=== PATIENT | female | born 1950 | race Caucasian/White ===

== ENCOUNTER 2022-03-07 07:49 | Inpatient (IN) | payer MEDICARE, BC ==
[2022-03-07] MEDS ORDERED: ONDANSETRON 4 MG/2 ML VIAL IVP STA (08:18)
[2022-03-07 08:48] LABS: Albumin 4.1 g/dL (3.5-5.0); Calcium 10.2 mg/dL (8.4-10.2); Potassium 4.3 mmol/L (3.5-5.1); Total Bilirubin 0.5 mg/dL (0.2-1.3)
[2022-03-07 08:52] LABS: INR 0.9 (<1.2); Partial Thromboplastin Time 24.6 sec (22.0-30.0); Prothrombin Time 10.1 sec (9.0-12.0)
[2022-03-07 09:01] LABS: Basophils # (A) 0.1 k/uL (0-0.2); Basophils % (A) 1 %; Eosinophils # (A) 0.8 k/uL (0-0.7); Eosinophils % (A) 11 %; HCT 38.1 % (34.0-46.0); Lymphocytes # (A) 1.5 k/uL (1.0-4.8); Lymphocytes % (A) 20 %; MCH 31.1 pg (25.0-35.0); MCHC 31.6 g/dL (31.0-37.0); MCV 98.4 fL (80.0-100.0); Mean Platelet Volume 7.8; Monocytes # (A) 0.4 k/uL (0-1.0); Monocytes % (A) 6 %; Neutrophils # (A) 4.6 k/uL (1.3-7.7); Neutrophils % (A) 62 %; Platelet Count 371 k/uL (150-450); RBC 3.87 m/uL (3.80-5.40); RDW 13.6 % (11.5-15.5); WBC 7.4 k/uL (3.8-10.6)
--- NOTE | 2022-03-07 09:32 | ED ---
GI Bleed HPI - General Chief complaint: GI Bleed Stated complaint: blood in stool Time Seen by Provider: 03/07/22 07:56 Source: patient, RN notes reviewed Mode of arrival: ambulatory Limitations: no limitations - History of Present Illness Initial comments: 71-year-old female presents emergency Department with chief complaint of rectal bleeding. She states she went to have low 2059 was old blood. Patient states she still has blood that is leaking. Patient that she has no hemorrhoids but denies any pain denies abdominal pain she did develop some nausea while in the emergency department. Patient states she takes aspirin denies blood thinners. Patient denies any fevers or chills no dysuria. - Related Data Home Medications Medication Instructions Recorded Confirmed ALPRAZolam [Xanax] 1 mg PO DAILY PRN 03/07/22 03/07/22 Acetaminophen [Tylenol Arthritis] 1,300 mg PO QAM 03/07/22 03/07/22 Ascorbic Acid [Vitamin C] 1,000 mg PO DAILY 03/07/22 03/07/22 Aspirin EC [Ecotrin Low Dose] 81 mg PO HS 03/07/22 03/07/22 Atorvastatin Calcium [Lipitor] 80 mg PO HS 03/07/22 03/07/22 Carvedilol [Coreg] 12.5 mg PO BID 03/07/22 03/07/22 Celecoxib [CeleBREX] 200 mg PO WE 03/07/22 03/07/22 Cholecalciferol (Vitamin D3) 75 mcg PO HS 03/07/22 03/07/22 [Vitamin D3 (3000 Iu)] Clopidogrel Bisulfate [Clopidogrel] 75 mg PO DAILY 03/07/22 03/07/22 Magnesium Oxide [Mag-Ox] 400 mg PO DAILY 03/07/22 03/07/22 Sertraline HCl [Zoloft] 100 mg PO DAILY 03/07/22 03/07/22 Triamterene/Hydrochlorothiazid 1 tab PO DAILY 03/07/22 03/07/22 [Triamterene-Hctz 37.5-25 mg Tb] Vitamin E (Dl,Tocopheryl Acet) 400 unit PO DAILY 03/07/22 03/07/22 [Vitamin E (400 Iu = 180 mg)] Allergies Allergy/AdvReac Type Severity Reaction Status Date / Time No Known Allergies Allergy Verified 03/07/22 09:16 Review of Systems ROS Statement: Those systems with pertinent positive or pertinent negative responses have been documented in the HPI. ROS Other: All systems not noted in ROS Statement are negative. Past Medical History Past Medical History: Hypertension, Renal Disease Additional Past Medical History / Comment(s): kidney stones. History of Any Multi-Drug Resistant Organisms: None Reported Past Surgical History: Cholecystectomy Past Psychological History: No Psychological Hx Reported Smoking Status: Never smoker Past Alcohol Use History: Occasional Past Drug Use History: None Reported General Exam Limitations: no limitations General appearance: alert, in no apparent distress Head exam: Present: atraumatic, normocephalic, normal inspection Eye exam: Present: normal appearance, PERRL, EOMI. Absent: scleral icterus, conjunctival injection, periorbital swelling ENT exam: Present: normal exam, mucous membranes moist Neck exam: Present: normal inspection, full ROM. Absent: tenderness, meningismus, lymphadenopathy Respiratory exam: Present: normal lung sounds bilaterally. Absent: respiratory distress, wheezes, rales, rhonchi, stridor Cardiovascular Exam: Present: regular rate, normal rhythm, normal heart sounds. Absent: systolic murmur, diastolic murmur, rubs, gallop, clicks GI/Abdominal exam: Present: soft, normal bowel sounds. Absent: distended, tenderness, guarding, rebound, rigid Rectal exam: Present: other (There is noted blood in, no active bleeding from hemorrhoid, no lesions.) Course Vital Signs 03/07/22 03/07/22 07:50 08:26 Temperature 98.1 F Pulse Rate 92 Respiratory 18 Rate Blood Pressure 122/79 131/77 O2 Sat by Pulse 98 Oximetry Medical Decision Making - Medical Decision Making Patient does have mild bleeding noted did have significant bleeding home. Patient's hemoglobin is stable. Patient will have repeat H&H. Patient will be admitted for GI evaluation. - Lab Data Result diagrams: 03/07/22 08:23 03/07/22 08:23 Lab Results 03/07/22 03/07/22 03/07/22 Range/Units 08:15 08:23 08:23 WBC 7.4 (3.8-10.6) k/uL RBC 3.87 (3.80-5.40) m/uL Hgb 12.0 (11.4-16.0) gm/dL Hct 38.1 (34.0-46.0) % MCV 98.4 (80.0-100.0) fL MCH 31.1 (25.0-35.0) pg MCHC 31.6 (31.0-37.0) g/dL RDW 13.6 (11.5-15.5) % Plt Count 371 (150-450) k/uL MPV 7.8 Neutrophils % 62 % Lymphocytes % 20 % Monocytes % 6 % Eosinophils % 11 % Basophils % 1 % Neutrophils # 4.6 (1.3-7.7) k/uL Lymphocytes # 1.5 (1.0-4.8) k/uL Monocytes # 0.4 (0-1.0) k/uL Eosinophils # 0.8 H (0-0.7) k/uL Basophils # 0.1 (0-0.2) k/uL PT 10.1 (9.0-12.0) sec INR 0.9 (<1.2) APTT 24.6 (22.0-30.0) sec Sodium (137-145) mmol/L Potassium (3.5-5.1) mmol/L Chloride (98-107) mmol/L Carbon Dioxide (22-30) mmol/L Anion Gap mmol/L BUN (7-17) mg/dL Creatinine (0.52-1.04) mg/dL Est GFR (CKD-EPI)AfAm (>60 ml/min/1.73 sqM) Est GFR (CKD-EPI)NonAf (>60 ml/min/1.73 sqM) Glucose (74-99) mg/dL Plasma Lactic Acid Dung (0.7-2.0) mmol/L Calcium (8.4-10.2) mg/dL Total Bilirubin (0.2-1.3) mg/dL AST (14-36) U/L ALT (4-34) U/L Alkaline Phosphatase (38-126) U/L Troponin I (0.000-0.034) ng/mL Total Protein (6.3-8.2) g/dL Albumin (3.5-5.0) g/dL Blood Type O Positive Blood Type Confirm Blood Type Recheck No Previous Record Bld Type Recheck Status CABO Indicated Antibody Screen NEGATIVE Spec Expiration Date 03/10/2022231403/07/22 03/07/22 03/07/22 Range/Units 08:23 08:23 08:23 WBC (3.8-10.6) k/uL RBC (3.80-5.40) m/uL Hgb (11.4-16.0) gm/dL Hct (34.0-46.0) % MCV (80.0-100.0) fL MCH (25.0-35.0) pg MCHC (31.0-37.0) g/dL RDW (11.5-15.5) % Plt Count (150-450) k/uL MPV Neutrophils % % Lymphocytes % % Monocytes % % Eosinophils % % Basophils % % Neutrophils # (1.3-7.7) k/uL Lymphocytes # (1.0-4.8) k/uL Monocytes # (0-1.0) k/uL Eosinophils # (0-0.7) k/uL Basophils # (0-0.2) k/uL PT (9.0-12.0) sec INR (<1.2) APTT (22.0-30.0) sec Sodium 140 (137-145) mmol/L Potassium 4.3 (3.5-5.1) mmol/L Chloride 104 (98-107) mmol/L Carbon Dioxide 26 (22-30) mmol/L Anion Gap 10 mmol/L BUN 43 H (7-17) mg/dL Creatinine 1.43 H (0.52-1.04) mg/dL Est GFR (CKD-EPI)AfAm 42 (>60 ml/min/1.73 sqM) Est GFR (CKD-EPI)NonAf 36 (>60 ml/min/1.73 sqM) Glucose 132 H (74-99) mg/dL Plasma Lactic Acid Dung 1.5 (0.7-2.0) mmol/L Calcium 10.2 (8.4-10.2) mg/dL Total Bilirubin 0.5 (0.2-1.3) mg/dL AST 20 (14-36) U/L ALT 18 (4-34) U/L Alkaline Phosphatase 97 (38-126) U/L Troponin I <0.012 (0.000-0.034) ng/mL Total Protein 7.0 (6.3-8.2) g/dL Albumin 4.1 (3.5-5.0) g/dL Blood Type Blood Type Confirm Blood Type Recheck Bld Type Recheck Status Antibody Screen Spec Expiration Date 03/07/22 Range/Units 08:23 WBC (3.8-10.6) k/uL RBC (3.80-5.40) m/uL Hgb (11.4-16.0) gm/dL Hct (34.0-46.0) % MCV (80.0-100.0) fL MCH (25.0-35.0) pg MCHC (31.0-37.0) g/dL RDW (11.5-15.5) % Plt Count (150-450) k/uL MPV Neutrophils % % Lymphocytes % % Monocytes % % Eosinophils % % Basophils % % Neutrophils # (1.3-7.7) k/uL Lymphocytes # (1.0-4.8) k/uL Monocytes # (0-1.0) k/uL Eosinophils # (0-0.7) k/uL Basophils # (0-0.2) k/uL PT (9.0-12.0) sec INR (<1.2) APTT (22.0-30.0) sec Sodium (137-145) mmol/L Potassium (3.5-5.1) mmol/L Chloride (98-107) mmol/L Carbon Dioxide (22-30) mmol/L Anion Gap mmol/L BUN (7-17) mg/dL Creatinine (0.52-1.04) mg/dL Est GFR (CKD-EPI)AfAm (>60 ml/min/1.73 sqM) Est GFR (CKD-EPI)NonAf (>60 ml/min/1.73 sqM) Glucose (74-99) mg/dL Plasma Lactic Acid Dung (0.7-2.0) mmol/L Calcium (8.4-10.2) mg/dL Total Bilirubin (0.2-1.3) mg/dL AST (14-36) U/L ALT (4-34) U/L Alkaline Phosphatase (38-126) U/L Troponin I (0.000-0.034) ng/mL Total Protein (6.3-8.2) g/dL Albumin (3.5-5.0) g/dL Blood Type Blood Type Confirm O Positive Blood Type Recheck Bld Type Recheck Status Antibody Screen Spec Expiration Date Disposition Clinical Impression: Hematochezia, GI bleed Disposition: ADMITTED IP TO THIS [facility] Condition: Fair Referrals: Sonny Daley MD [Primary Care Provider] - 1-2 days Time of Disposition: 09:32
[2022-03-07] MEDS ORDERED: NALOXONE 0.4 MG/ML 1 ML VIAL IV PRN (09:52)
[2022-03-07] MEDS ORDERED: ACETAMINOPHEN TAB 325 MG TAB PO PRN (11:24)
[2022-03-07] MEDS ORDERED: ALPRAZolam 1 MG TAB PO PRN (11:26)
--- NOTE | 2022-03-07 11:31 | P.HPIM ---
History of Present Illness H&P Date: 03/07/22 Patient is a 71-year-old female with chronic kidney disease age [address] Crowley, hypertension, and dyslipidemia who presented with bright red blood per rectum. In the ER she underwent an extensive evaluation. Her initial vital signs were within normal limits, initial laboratory analysis was consistent with her known chronic kidney disease. Per ER examination she was noted to have bright red blood per rectum and external hemorrhoids that were not bleeding. Patient was placed in observation. Patient seen and examined at bedside. She reports that she got up this morning and when to go to the bathroom to urinate. She noted bright red blood on wiping and in the toilet. She has continued to have significant oozing of blood since that time. She denies any nausea, vomiting, abdominal pain. She has not ate anything unusual. She denies any fevers or chills. She has had no sick contacts. She denies any history of GI bleed in the past. She has seen Dr. Bean out in [place]. She reports that she is due for a colonoscopy in March 2022. She amalia es any history of colon cancer or colon polyps. She is unsure of her indication for Plavix but believes it is due to prevent heart attack and stroke-she denies a history of prior TIA/strokes asked myocardial infarction/peripheral arterial disease/carotid disease. She also has been taking Celebrex once weekly and aspirin 81 mg twice daily. I have asked her to check with her PCP as to her indication for Plavix. Pertinent positives and negatives as discussed in HPI, a complete review of systems was performed and all other systems are negative. Vital signs reviewed General: non toxic, no distress, appears at stated age Derm: warm, dry Head: atraumatic, normocephalic, symmetric Eyes: EOMI, no lid lag, anicteric sclera, pupils equal round reactive to light ENT: Nose and ears atraumatic, no thrush, no pharyngeal erythema Neck: No thyromegaly, no cervical lymphadenopathy, trachea midline, supple Mouth: no lip lesion, mucus membranes moist Cardiovascular: S1S2 reg, no murmur, positive posterior tibial pulse bilateral, no edema, capillary refill less than 2 seconds Lungs: clear to ascultation bilateral, no ronchi, no rales, no wheeze, no accessory muscle use Abdominal: soft, nontender to palpation, no guarding, no appreciable organomegaly, normal bowel sounds Ext: no gross muscle atrophy, muscle strength muscle strength 5 out of 5 in all 4 extremities, no contractures Neuro: CN II-XII grossly intact, light touch intact all 4 extremities, finger to nose within normal limits, Psych: Alert, oriented, appropriate affect Assessment/Plan: Bright red blood per rectum consistent with lower GI bleed -GI consultation, discussed with KRISTIN Mathews Likely scope in AM -Serial hemoglobin -IV fluids -We'll start Protonix, but doubt upper etiology Hypertension -Hold triamterene/hydrochlorothiazide due to blood loss -Continue with Coreg -Follow blood pressures Chronic kidney disease age 1 -Baseline GFR is 35 and today's GFR is 36 -Avoid nephrotoxic agents -Monitor kidney function closely Dyslipidemia -Statin The patient is admitted with an anticipated less than 2 midnight stay for evaluation of GI bleed DVT prophylaxis: SCDs Discussed with: patient, ED provider, ford Mathews Anticipated discharge date: in 1-[address]: home A total of 65 minutes was spent on the care of this complex patient more than 50% of the time was spent in counseling and care coordination. Past Medical History Past Medical History: Hypertension, Renal Disease Additional Past Medical History / Comment(s): kidney stones. History of Any Multi-Drug Resistant Organisms: None Reported Past Surgical History: Cholecystectomy Past Psychological History: No Psychological Hx Reported Smoking Status: Never smoker Past Alcohol Use History: Occasional Past Drug Use History: None Reported Medications and Allergies Home Medications Medication Instructions Recorded Confirmed Type ALPRAZolam [Xanax] 1 mg PO DAILY PRN 03/07/22 03/07/22 History Acetaminophen [Tylenol Arthritis] 1,300 mg PO QAM 03/07/22 03/07/22 History Ascorbic Acid [Vitamin C] 1,000 mg PO DAILY 03/07/22 03/07/22 History Aspirin EC [Ecotrin Low Dose] 81 mg PO HS 03/07/22 03/07/22 History Atorvastatin Calcium [Lipitor] 80 mg PO HS 03/07/22 03/07/22 History Carvedilol [Coreg] 12.5 mg PO BID 03/07/22 03/07/22 History Celecoxib [CeleBREX] 200 mg PO WE 03/07/22 03/07/22 History Cholecalciferol (Vitamin D3) 75 mcg PO HS 03/07/22 03/07/22 History [Vitamin D3 (3000 Iu)] Clopidogrel Bisulfate [Clopidogrel] 75 mg PO DAILY 03/07/22 03/07/22 History Magnesium Oxide [Mag-Ox] 400 mg PO DAILY 03/07/22 03/07/22 History Sertraline HCl [Zoloft] 100 mg PO DAILY 03/07/22 03/07/22 History Triamterene/Hydrochlorothiazid 1 tab PO DAILY 03/07/22 03/07/22 History [Triamterene-Hctz 37.5-25 mg Tb] Vitamin E (Dl,Tocopheryl Acet) 400 unit PO DAILY 03/07/22 03/07/22 History [Vitamin E (400 Iu = 180 mg)] Allergies Allergy/AdvReac Type Severity Reaction Status Date / Time No Known Allergies Allergy Verified 03/07/22 09:16 Physical Exam Osteopathic Statement: *. No significant issues noted on an osteopathic structural exam other than those noted in the History and Physical/Consult. Vitals: Vital Signs Temp Pulse Resp BP Pulse Ox 03/07/22 08:26 131/77 03/07/22 07:50 98.1 F 92 18 122/79 98 Intake and Output 03/06/22 03/07/22 03/07/22 22:59 06:59 14:59 Other: Weight 82.554 kg Results CBC & Chem 7: 03/07/22 08:23 03/07/22 08:23 Labs: Abnormal Lab Results - Last 24 Hours (Table) 03/07/22 03/07/22 Range/Units 08:23 08:23 Eosinophils # 0.8 H (0-0.7) k/uL BUN 43 H (7-17) mg/dL Creatinine 1.43 H (0.52-1.04) mg/dL Glucose 132 H (74-99) mg/dL
[2022-03-07] MEDS: PANTOPRAZOLE 40 MG/10 ML VIAL IVP SCH ×2 (12:28→21:09)
[2022-03-07] MEDS: SODIUM CHLORIDE 0.9% 1,000 ML IV SCH ×2 (12:28→19:10)
[2022-03-07 12:38] LABS: HCT 33.8 % (34.0-46.0); HGB 10.7 gm/dL (11.4-16.0); Hypochromasia Slight; MCH 31.7 pg (25.0-35.0); MCHC 31.5 g/dL (31.0-37.0); MCV 100.7 fL (80.0-100.0); Macrocytosis Slight; Mean Platelet Volume 7.6; Platelet Count 476 k/uL (150-450); RBC 3.36 m/uL (3.80-5.40); RDW 14.1 % (11.5-15.5); WBC 10.7 k/uL (3.8-10.6)
--- NOTE | 2022-03-07 13:58 | P.CONS ---
History of Present Illness - Reason for Consult Consult date: 03/07/22 Hematochezia Requesting physician: Shanelle Daley - Chief Complaint Rectal bleeding - History of Present Illness This is a pleasant 71-year-old female who presented to the emergency department this morning with complaints of bright red blood per rectum. States she got up this morning and went to the bathroom and noted that she had bright red blood in the toilet. She continued to have dripping and blood per rectum. She denies any pushing or constipation. No abdominal pain or cramping associated with the bleeding. She does state that she has had looser stools over the last several days. She is unsure when her last colonoscopy was but states that she is schedu led April [address] Villarreal had her previous colonoscopies were done in [place]. She denies any anticoagulation but is on Plavix, baby aspirin twice a day and takes Celebrex once a week. She has no previous history of peptic ulcer disease. Hemoglobin was stable on admission of 12.0. While in the emergency department she has had further bleeding and clots from the rectum. She has a past medical history including hypertension, dyslipidemia, and chronic kidney disease. Review of Systems REVIEW OF SYSTEMS: CARDIOPULMONARY: No chest pain or shortness of breath. Gastrointestinal: No abdominal pain or cramping. No nausea or vomiting. No hematemesis, coffee-ground emesis. Rectal bleeding, bright red blood, dark With clots. GENITOURINARY: No dysuria or hematuria. MUSCULOSKELETAL: Reports normal range of motion., Joint pain. SKIN: No rashes. No jaundice. ENDOCRINE: No chills, fevers. No excessive weight gain or loss. No polydipsia or polyuria. PSYCHIATRIC: Unremarkable. NEUROLOGY: No change in mental status. Denies dizziness, headache. ENT: Vision unremarkable. CONSTITUTIONAL: No recent weight loss. No fever, chills, night sweats. Past Medical History Past Medical History: Hypertension, Renal Disease Additional Past Medical History / Comment(s): kidney stones. History of Any Multi-Drug Resistant Organisms: None Reported Past Surgical History: Cholecystectomy Past Psychological History: No Psychological Hx Reported Smoking Status: Never smoker Past Alcohol Use History: Occasional Past Drug Use History: None Reported Medications and Allergies Home Medications Medication Instructions Recorded Confirmed Type ALPRAZolam [Xanax] 1 mg PO DAILY PRN 03/07/22 03/07/22 History Acetaminophen [Tylenol Arthritis] 1,300 mg PO QAM 03/07/22 03/07/22 History Ascorbic Acid [Vitamin C] 1,000 mg PO DAILY 03/07/22 03/07/22 History Aspirin EC [Ecotrin Low Dose] 81 mg PO HS 03/07/22 03/07/22 History Atorvastatin Calcium [Lipitor] 80 mg PO HS 03/07/22 03/07/22 History Carvedilol [Coreg] 12.5 mg PO BID 03/07/22 03/07/22 History Celecoxib [CeleBREX] 200 mg PO WE 03/07/22 03/07/22 History Cholecalciferol (Vitamin D3) 75 mcg PO HS 03/07/22 03/07/22 History [Vitamin D3 (3000 Iu)] Clopidogrel Bisulfate [Clopidogrel] 75 mg PO DAILY 03/07/22 03/07/22 History Magnesium Oxide [Mag-Ox] 400 mg PO DAILY 03/07/22 03/07/22 History Sertraline HCl [Zoloft] 100 mg PO DAILY 03/07/22 03/07/22 History Triamterene/Hydrochlorothiazid 1 tab PO DAILY 03/07/22 03/07/22 History [Triamterene-Hctz 37.5-25 mg Tb] Vitamin E (Dl,Tocopheryl Acet) 400 unit PO DAILY 03/07/22 03/07/22 History [Vitamin E (400 Iu = 180 mg)] Allergies Allergy/AdvReac Type Severity Reaction Status Date / Time No Known Allergies Allergy Verified 03/07/22 09:16 Physical Exam Vitals: Vital Signs Temp Pulse Resp BP Pulse Ox 03/07/22 08:26 131/77 03/07/22 07:50 98.1 F 92 18 122/79 98 Intake and Output 03/06/22 03/07/22 03/07/22 22:59 06:59 14:59 Other: Weight 82.554 kg General appearance: The patient is alert, oriented, appears in no acute distress. HET: Head is normocephalic and atraumatic. Conjunctiva pink. Sclera anicteric. Neck: Supple without lymphadenopathy. Trachea midline. Heart: S1 S2. Regular rate and rhythm. Lungs: Clear to auscultation. Abdomen: Soft, nontender, nondistended with bowel sounds. No guarding or rigidity. Skin: No rashes. No jaundice. Extremities: Normal skin color and turgor. No pedal edema. Neurological: No focal deficits. Alert and oriented x3. Results CBC & Chem 7: 03/07/22 11:56 03/07/22 08:23 Labs: Abnormal Lab Results - Last 24 Hours (Table) 03/07/22 03/07/22 Range/Units 08:23 08:23 Eosinophils # 0.8 H (0-0.7) k/uL BUN 43 H (7-17) mg/dL Creatinine 1.43 H (0.52-1.04) mg/dL Glucose 132 H (74-99) mg/dL Assessment and Plan (1) GI bleed Narrative/Plan: 71-year-old female with a past medical history of hypertension hyperlipidemia and chronic kidney disease presented to the emergency department this morning with bright red blood per rectum. As she remained in the emergency department she continued to have bleeding per rectum, dark maroon color with clots. No previous history of GI bleed. No history of peptic ulcer disease. She does take baby aspirin twice a day, Celebrex weekly as well as Plavix. Unsure of la st colonoscopy however states she is due this 04/05/[address] Ya. Possible etiologies include diverticular bleed, colitis, peptic ulcer disease AVM, or other possible etiologies. Will proceed with EGD and colonoscopy. Current Visit: Yes Status: Acute Code(s): K92.2 - GASTROINTESTINAL HEMORRHAGE, UNSPECIFIED SNOMED Code(s): 73794739 (2) Hematochezia Current Visit: Yes Status: Acute Code(s): K92.1 - MELENA SNOMED Code(s): 458636869 Plan: 1. Continue symptomatic supportive care 2. A clear liquid diet, ambulating after midnight 3. Bowel prep this afternoon 4. Serial CBCs, repeat CBC daily transfuse for hemoglobin less than 7 5. Hold Plavix and aspirin 6. Protonix 40 mg twice a day 7. Will proceed with EGD and colonoscopy tomorrow. Procedure discussed with patient including risks and benefits. Patient willing to proceed. Thank you for this consultation, we'll continue to follow. Dr. Cee Ya I agree with the dictator's note, documented as a scribe by Erin Bojorquez
[2022-03-07] MEDS ORDERED: PEG 3350-NA SULF,BICARB,CL/KCL 4,000 ML BOTTLE PO ONE (16:00)
[2022-03-07] MEDS ORDERED: SODIUM CHLORIDE 0.9% 1,000 ML IV ONE (16:18)
[2022-03-07 17:11] LABS: ALT 15 U/L (4-34); AST 17 U/L (14-36); African American GFR (CKD) 44 (>60 ml/min/1.73 sqM); Albumin 3.1 g/dL (3.5-5.0); Albumin/Globulin Ratio 1.4; Alkaline Phosphatase 67 U/L (38-126); Anion Gap 6 mmol/L; Blood Urea Nitrogen 47 mg/dL (7-17); Calcium 8.4 mg/dL (8.4-10.2); Carbon Dioxide 24 mmol/L (22-30); Chloride 108 mmol/L (98-107); Globulin 2.2 g/dL; Glucose 169 mg/dL (74-99); Non-African American GFR(CKD) 38 (>60 ml/min/1.73 sqM); Potassium 4.4 mmol/L (3.5-5.1); Sodium 138 mmol/L (137-145); Total Bilirubin 0.3 mg/dL (0.2-1.3); Total Protein 5.3 g/dL (6.3-8.2)
[2022-03-07 17:15] LABS: HCT 26.5 % (34.0-46.0); Hypochromasia Slight; MCH 32.2 pg (25.0-35.0); MCHC 32.1 g/dL (31.0-37.0); MCV 100.1 fL (80.0-100.0); Macrocytosis Slight; Mean Platelet Volume 7.8; Platelet Count 373 k/uL (150-450); RBC 2.65 m/uL (3.80-5.40); RDW 14.2 % (11.5-15.5); WBC 7.9 k/uL (3.8-10.6)
[2022-03-07 17:30] LABS: HGB 8.5 gm/dL (11.4-16.0)
--- NOTE | 2022-03-07 17:39 | P.CNPUL ---
History of Present Illness Consult date: 03/07/22 Requesting physician: Shanelle Daley Reason for consult: other Chief complaint: Bright red blood per rectum History of present illness: This is a 71-year-old female patient that came in to the emergency department on [place] 03/07/2022 with complaint of rectal bleeding that started this morning. Rose ent went to the bathroom and had a very large amount of bright red blood per rectum. Patient denied any abdominal pain, no hematemesis. She did have some nausea in the emergency department, patient has a history of hypertension, chronic kidney disease stage III, dyslipidemia, osteoarthritis. Patient takes 81 mg aspirin, Plavix, and Celebrex 200 mg every Friday on a regular basis. Denies having any previous GI bleeding. Had a colonoscopy several years ago, according to the patient was unremarkable. Admission blood work showed hemoglobin of 12.0, platelet count was 371, INR was 0.9, PT was 10.1, PTT was 24.6, electrolytes are within normal limits, BUN was 43 creatinine is 1.43. Troponin was less than 0.012, LFTs were within normal limits, lactic acid was 1.5. She was stable, patient was started on PPI, GI service has been consulted for evaluation. Patient was initially admitted to the general medical floor, however this afternoon when she got up to go to the bathroom she felt quite lightheaded, she had an urge to have a bowel movement, and she had an episode of lower GI hemorrhage, and patient was passing large amount of bright red blood per rectum. Patient became quite symptomatic, lightheaded, she was started on IV fluid bolus of 1 L, 1 unit of packed red blood cells has been ordered, repeat CBC, and patient was transferred to the intensive care unit for closer monitor ing Review of Systems All systems: negative Constitutional: Denies chills, Denies fever Eyes: denies blurred vision, denies pain Ears, nose, mouth and throat: Denies headache, Denies sore throat Cardiovascular: Denies chest pain, Denies shortness of breath Respiratory: Denies cough Gastrointestinal: Reports hematochezia, Denies abdominal pain, Denies diarrhea, Denies nausea, Denies vomiting Genitourinary: Denies dysuria, Denies hematuria Musculoskeletal: Denies myalgias Integumentary: Denies pruritus, Denies rash Neurological: Denies numbness, Denies weakness Psychiatric: Denies anxiety, Denies depression Endocrine: Denies fatigue, Denies weight change Past Medical History Past Medical History: Hypertension, Renal Disease Additional Past Medical History / Comment(s): kidney stones. History of Any Multi-Drug Resistant Organisms: None Reported Past Surgical History: Cholecystectomy Past Psychological History: No Psychological Hx Reported Smoking Status: Never smoker Past Alcohol Use History: Occasional Past Drug Use History: None Reported Medications and Allergies Home Medications Medication Instructions Recorded Confirmed Type ALPRAZolam [Xanax] 1 mg PO DAILY PRN 03/07/22 03/07/22 History Acetaminophen [Tylenol Arthritis] 1,300 mg PO QAM 03/07/22 03/07/22 History Ascorbic Acid [Vitamin C] 1,000 mg PO DAILY 03/07/22 03/07/22 History Aspirin EC [Ecotrin Low Dose] 81 mg PO HS 03/07/22 03/07/22 History Atorvastatin Calcium [Lipitor] 80 mg PO HS 03/07/22 03/07/22 History Carvedilol [Coreg] 12.5 mg PO BID 03/07/22 03/07/22 History Celecoxib [CeleBREX] 200 mg PO WE 03/07/22 03/07/22 History Cholecalciferol (Vitamin D3) 75 mcg PO HS 03/07/22 03/07/22 History [Vitamin D3 (3000 Iu)] Clopidogrel Bisulfate [Clopidogrel] 75 mg PO DAILY 03/07/22 03/07/22 History Magnesium Oxide [Mag-Ox] 400 mg PO DAILY 03/07/22 03/07/22 History Sertraline HCl [Zoloft] 100 mg PO DAILY 03/07/22 03/07/22 History Triamterene/Hydrochlorothiazid 1 tab PO DAILY 03/07/22 03/07/22 History [Triamterene-Hctz 37.5-25 mg Tb] Vitamin E (Dl,Tocopheryl Acet) 400 unit PO DAILY 03/07/22 03/07/22 History [Vitamin E (400 Iu = 180 mg)] Allergies Allergy/AdvReac Type Severity Reaction Status Date / Time No Known Allergies Allergy Verified 03/07/22 09:16 Physical Exam Vitals: Vital Signs Temp Pulse Resp BP Pulse Ox 03/07/22 15:46 91 18 112/84 96 03/07/22 12:00 91 18 125/58 95 03/07/22 08:26 131/77 03/07/22 07:50 98.1 F 92 18 122/79 98 Intake and Output 03/07/22 03/07/22 03/07/22 06:59 14:59 22:59 Other: Weight 82.554 kg GENERAL EXAM: Alert, very pleasant, 71-year-old white female, resting in bed, comfortable in no apparent distress. HEAD: Normocephalic/atraumatic. EYES: Normal reaction of pupils, equal size. Conjunctiva pink, sclera white. NOSE: Clear with pink turbinates. THROAT: No erythema or exudates. NECK: No masses, no JVD, no thyroid enlargement, no adenopathy. CHEST: No chest wall deformity. Symmetrical expansion. LUNGS: Equal air entry with no crackles, wheeze, rhonchi or dullness. CVS: Regular rate and rhythm, normal S1 and S2, no gallops, no murmurs, no rubs ABDOMEN: Soft, nontender. No hepatosplenomegaly, normal bowel sounds, no guarding or rigidity. EXTREMITIES: No clubbing, no edema, no cyanosis, 2+ pulses and upper and lower extremities. MUSCULOSKELETAL: Muscle strength and tone normal. SPINE: No scoliosis or deformity SKIN: No rashes CENTRAL NERVOUS SYSTEM: Alert and oriented -3. No focal deficits, tone is normal in all 4 extremities. PSYCHIATRIC: Alert and oriented -3. Appropriate affect. Intact judgment and insight. Results - Laboratory Findings CBC and BMP: 03/08/22 02:14 03/08/22 02:14 PT/INR, D-dimer PT 10.1 sec (9.0-12.0) 03/07/22 08:23 INR 0.9 (<1.2) 03/07/22 08:23 Abnormal lab findings: Abnormal Labs 03/07/22 03/07/22 03/07/22 08:15 08:23 08:23 WBC RBC Hgb Hct MCV Plt Count Eosinophils # 0.8 H BUN 43 H Creatinine 1.43 H Glucose 132 H Crossmatch See Detail 03/07/22 11:56 WBC 10.7 H RBC 3.36 L Hgb 10.7 L Hct 33.8 L MCV 100.7 H Plt Count 476 H Eosinophils # BUN Creatinine Glucose Crossmatch Assessment and Plan Plan: Assessment: #1. Acute GI blood loss anemia, likely related to lower GI bleeding secondary to possibility of diverticular bleeding, current hemoglobin is 10.7, repeat hemoglobin is pending after an episode of acute lower GI hemorrhage. Will receive 1 unit of packed red blood cells #2. Hypertension #3. Dyslipidemia #4. History of chronic kidney disease stage III #5. History of kidney stones #6. Osteoarthritis Plan: Agree with IV fluid bolus Repeat hemoglobin is pending We'll transfuse with 1 unit of packed red blood cells Continue monitoring in the intensive care unit Serial H&H's Aspirin, Plavix and Celebrex are on hold Continue PPI therapy GI service recommendations Patient is scheduled for EGD colonoscopy tomorrow Keep nothing by mouth I have personally seen and examined the patient, performed the documentation and the assessment and plan as written. Number of minutes spent on the visit: [15] Time with Patient: Greater than 30
[2022-03-07 17:45] LABS: Prothrombin Time 10.8 sec (9.0-12.0)
--- NOTE | 2022-03-07 17:46 | P.EN ---
A- team: Indication: GI bleed Arrived on Scene to find: Patient appeared pale and diaphoretic. having bright red blood per rectum. Patient seen and examined at bedside. She reports that when she was on the commode she felt light headed, diaphoretic, had abdominal cramping, and some nausea. Now feeling better. Vital signs reviewed General: ill appearing, moderate distress, appears at stated age Derm: warm, diaphoretic Head: atraumatic, normocephalic, symmetric Eyes: EOMI, no lid lag, anicteric sclera Mouth: no lip lesion, mucus membranes moist Cardiovascular: S1S2 reg, no murmur, positive posterior tibial pulse bilateral, Lungs: CTA bilateral, no rhonchi, no rales , no accessory muscle use Abdominal: soft, nontender to palpation, no guarding, no appreciable organomegaly Ext: no gross muscle atrophy, no edema, no contractures Neuro: CN II-XI grossly intact, no focal neuro deficits Psych: Alert, oriented, appropriate affect Assessment: Acute blood loss anemia Lower GI bleed Presyncope Plan: 1L bolus 1 unit pRBC stat CBC/pt/ptt Disposition: transfer to ICU Notified: Dr. Avril Ya A Total of 32 minutes of critical care time was spent on the complex care of this patient.
[2022-03-07 17:48] LABS: Partial Thromboplastin Time 20.1 sec (22.0-30.0)
[2022-03-07] MEDS: carvediloL 12.5 MG TAB PO SCH (19:12)
[2022-03-07] MEDS ORDERED: MELATONIN 3 MG TABLET PO PRN (21:00)
[2022-03-07 21:59] LABS: HCT 28.9 % (34.0-46.0); HGB 9.3 gm/dL (11.4-16.0); Hypochromasia Slight; MCH 31.8 pg (25.0-35.0); MCHC 32.1 g/dL (31.0-37.0); Platelet Count 285 k/uL (150-450); RBC 2.92 m/uL (3.80-5.40); RDW 13.8 % (11.5-15.5); WBC 7.7 k/uL (3.8-10.6)
[2022-03-08] MEDS: SODIUM CHLORIDE 0.9% 1,000 ML IV SCH ×3 (00:35→20:37)
--- NOTE | 2022-03-08 02:23 | P.PN ---
Progress Note - Text Progress Note Date: 03/08/[address] Ya with regards to patient's ongoing GI bleeding. The patient is scheduled to undergo tagged RBC scan in 30-45 minutes. She recommended transferring patient to [facility] due to the on-going bleeding. Will contact [facility] Transfer center.
[2022-03-08 03:02] LABS: Calcium 8.1 mg/dL (8.4-10.2); Potassium 4.2 mmol/L (3.5-5.1)
[2022-03-08 03:03] LABS: HCT 29.9 % (34.0-46.0); HGB 9.4 gm/dL (11.4-16.0); Hypochromasia Slight; MCH 30.8 pg (25.0-35.0); MCHC 31.3 g/dL (31.0-37.0); MCV 98.4 fL (80.0-100.0); Mean Platelet Volume 7.7; Platelet Count 283 k/uL (150-450); RBC 3.03 m/uL (3.80-5.40); RDW 14.2 % (11.5-15.5); WBC 9.5 k/uL (3.8-10.6)
[2022-03-08] MEDS: carvediloL 12.5 MG TAB PO SCH ×2 (06:29→17:34)
[2022-03-08] MEDS: SERTRALINE 100 MG TAB PO SCH (08:41)
--- NOTE | 2022-03-08 08:52 | NM ---
EXAMINATION TYPE: NM GI bleeding DATE OF EXAM: 03/08/2022 HISTORY: Acute GI bleed COMPARISON: NONE Following administration of 3 ml PYP 21.5 mCi Tc 99m Sodium Pertechnate. Immediate images post inject ion. FINDINGS: Normal tracer activity is seen in the blood pool of the abdominal aorta, common iliac arteries, femor al arteries, liver, and spleen on all of the interval images. Later images show accumulation of trace r in the urinary bladder, which is consistent with excreted tracer. At approximately 30 to 35 minutes it begins to be some accumulation of radiotracer in the left upper quadrant. This continues to fill and spill in the expected region of the descending colon. Distal tra nsverse colon GI bleed should be suspected. IMPRESSION: Radiotracer in the left upper quadrant with filling of what appears to be the descending colon on seq uential images. The exam is suggestive for distal transverse colon acute bleed.
--- NOTE | 2022-03-08 09:31 | P.GSCN ---
History of Present Illness Consult date: 03/08/22 History of present illness: CHIEF COMPLAINT: GI bleed HISTORY OF PRESENT ILLNESS: This is a 71-year-old female who presents to the hospital with complaints of rectal bleeding. She reports that she's had a large amount of bright red blood from the rectum starting yesterday. Patient does take Plavix, Celebrex and aspirin at home. Patient had a hemoglobin of 12 on ad mission has dropped down to 8.5 and most recent hemoglobin is 9.4. Patient has received a total 4 units of blood. She continuously has large amount of blood oozing from the rectum. Patient did have 11 large bloody bowel movements. Patient is currently in the ICU. Vitals are stable. Patient was seen by GI service and initially scheduled for EGD and colonoscopy. However, patient continued to have continuous bleeding and tagged RBC scan ordered with results showing distal transverse colon acute bleed. Patient's prior surgical history includes cholecystectomy. Patient denies any abdominal pain. Patient denies any prior history of diverticulosis. Last colonoscopy 10 years ago she reports was normal. She's due for a colonoscopy in March. Transfer to tertiary care center had been requested yesterday. However, no beds are available at [facility] or [facility]. Therefore surgical service has been consulted for further evaluation of GI bleed. PAST MEDICAL HISTORY: Hypertension, renal disease PAST SURGICAL HISTORY: See list. MEDICATIONS: See list. ALLERGIES: See list. SOCIAL HISTORY: No illicit drug use. REVIEW OF SYSTEMS: CONSTITUTIONAL: Denies fever or chills. HEENT: Denies blurred vision, vision changes, or eye pain. Denies hemoptysis CARDIOVASCULAR: Denies chest pain or pressure. RESPIRATORY: No shortness of breath. GASTROINTESTINAL: See HPI for pertinent findings HEMATOLOGIC: Denies bleeding disorders. GENITOURINARY: Denies any blood in urine or increased urinary frequency. SKIN: Denies pruitis. Denies rash. PHYSICAL EXAM: VITAL SIGNS: Reviewed GENERAL: Well-developed in no acute distress. HEENT: No sclera icterus. Extraocular movements grossly intact. Moist buccal mucosa. Head is atraumatic, normocephalic. No nasal drainage. ABDOMEN: Soft. Nondistended. Nontender. Patient has pooling of bright red blood per rectum NEUROLOGIC: Alert and oriented. Cranial nerves II through XII grossly intact. LABORATORY DATA: WBC is 9.5 Hemoglobin 12 on admission trended down to 8.5, up to 9.4. Repeat CBC currently pending Sodium 137 potassium is 4.2 creatinine 1.34 Covid not detected IMAGING: Tagged RBC scan as stated above ASSESSMENT: 1. Acute GI bleed likely due to acute bleeding from the transverse colon as noted on tagged RBC scan 2. Acute blood loss anemia PLAN: -Further recommendations forthcoming per surgeon -Continue to monitor hemoglobin -Continue to monitor signs and symptoms of bleeding -Continue to hold Plavix, aspirin and Celebrex -Transfuse blood as needed -Continue IV fluids -Continue supportive care Physician [employer] note has been reviewed by physician. Signing provider agrees with the documented findings, assessment, and plan of care. Past Medical History Past Medical History: Hypertension, Renal Disease Additional Past Medical History / Comment(s): kidney stones. History of Any Multi-Drug Resistant Organisms: None Reported Past Surgical History: Cholecystectomy Past Psychological History: No Psychological Hx Reported Smoking Status: Never smoker Past Alcohol Use History: Occasional Past Drug Use History: None Reported Medications and Allergies Home Medications Medication Instructions Recorded Confirmed Type ALPRAZolam [Xanax] 1 mg PO DAILY PRN 03/07/22 03/07/22 History Acetaminophen [Tylenol Arthritis] 1,300 mg PO QAM 03/07/22 03/07/22 History Ascorbic Acid [Vitamin C] 1,000 mg PO DAILY 03/07/22 03/07/22 History Aspirin EC [Ecotrin Low Dose] 81 mg PO HS 03/07/22 03/07/22 History Atorvastatin Calcium [Lipitor] 80 mg PO HS 03/07/22 03/07/22 History Carvedilol [Coreg] 12.5 mg PO BID 03/07/22 03/07/22 History Celecoxib [CeleBREX] 200 mg PO WE 03/07/22 03/07/22 History Cholecalciferol (Vitamin D3) 75 mcg PO HS 03/07/22 03/07/22 History [Vitamin D3 (3000 Iu)] Clopidogrel Bisulfate [Clopidogrel] 75 mg PO DAILY 03/07/22 03/07/22 History Magnesium Oxide [Mag-Ox] 400 mg PO DAILY 03/07/22 03/07/22 History Sertraline HCl [Zoloft] 100 mg PO DAILY 03/07/22 03/07/22 History Triamterene/Hydrochlorothiazid 1 tab PO DAILY 03/07/22 03/07/22 History [Triamterene-Hctz 37.5-25 mg Tb] Vitamin E (Dl,Tocopheryl Acet) 400 unit PO DAILY 03/07/22 03/07/22 History [Vitamin E (400 Iu = 180 mg)] Allergies Allergy/AdvReac Type Severity Reaction Status Date / Time No Known Allergies Allergy Verified 03/07/22 09:16 Surgical - Exam Vital Signs Temp Pulse Resp BP Pulse Ox 98.1 F 92 18 122/79 98 03/07/22 07:50 03/07/22 07:50 03/07/22 07:50 03/07/22 07:50 03/07/22 07:50 Results - Labs 03/08/22 02:14 03/08/22 02:14 Abnormal Lab Results - Last 24 Hours (Table) 03/07/22 03/07/22 03/07/22 Range/Units 08:15 11:56 16:42 WBC 10.7 H (3.8-10.6) k/uL RBC 3.36 L 2.65 L (3.80-5.40) m/uL Hgb 10.7 L 8.5 L D (11.4-16.0) gm/dL Hct 33.8 L 26.5 L (34.0-46.0) % MCV 100.7 H 100.1 H (80.0-100.0) fL Plt Count 476 H (150-450) k/uL APTT (22.0-30.0) sec Chloride (98-107) mmol/L BUN (7-17) mg/dL Creatinine (0.52-1.04) mg/dL Glucose (74-99) mg/dL Calcium (8.4-10.2) mg/dL Total Protein (6.3-8.2) g/dL Albumin (3.5-5.0) g/dL Crossmatch See Detail 03/07/22 03/07/22 03/07/22 Range/Units 16:42 16:42 21:30 WBC (3.8-10.6) k/uL RBC 2.92 L (3.80-5.40) m/uL Hgb 9.3 L (11.4-16.0) gm/dL Hct 28.9 L (34.0-46.0) % MCV (80.0-100.0) fL Plt Count (150-450) k/uL APTT 20.1 L (22.0-30.0) sec Chloride 108 H (98-107) mmol/L BUN 47 H (7-17) mg/dL Creatinine 1.38 H (0.52-1.04) mg/dL Glucose 169 H (74-99) mg/dL Calcium (8.4-10.2) mg/dL Total Protein 5.3 L (6.3-8.2) g/dL Albumin 3.1 L (3.5-5.0) g/dL Crossmatch 03/08/22 03/08/22 Range/Units 02:14 02:14 WBC (3.8-10.6) k/uL RBC 3.03 L (3.80-5.40) m/uL Hgb 9.4 L (11.4-16.0) gm/dL Hct 29.9 L (34.0-46.0) % MCV (80.0-100.0) fL Plt Count (150-450) k/uL APTT (22.0-30.0) sec Chloride (98-107) mmol/L BUN 46 H (7-17) mg/dL Creatinine 1.34 H (0.52-1.04) mg/dL Glucose 136 H (74-99) mg/dL Calcium 8.1 L (8.4-10.2) mg/dL Total Protein (6.3-8.2) g/dL Albumin (3.5-5.0) g/dL Crossmatch Diabetes panel 03/07/22 03/08/22 Range/Units 16:42 02:14 Sodium 138 137 (137-145) mmol/L Potassium 4.4 4.2 (3.5-5.1) mmol/L Chloride 108 H 107 (98-107) mmol/L Carbon Dioxide 24 25 (22-30) mmol/L BUN 47 H 46 H (7-17) mg/dL Creatinine 1.38 H 1.34 H (0.52-1.04) mg/dL Glucose 169 H 136 H (74-99) mg/dL Calcium 8.4 8.1 L (8.4-10.2) mg/dL AST 17 (14-36) U/L ALT 15 (4-34) U/L Alkaline Phosphatase 67 (38-126) U/L Total Protein 5.3 L (6.3-8.2) g/dL Albumin 3.1 L (3.5-5.0) g/dL Calcium panel 03/07/22 03/08/22 Range/Units 16:42 02:14 Calcium 8.4 8.1 L (8.4-10.2) mg/dL Albumin 3.1 L (3.5-5.0) g/dL Pituitary panel 03/07/22 03/08/22 Range/Units 16:42 02:14 Sodium 138 137 (137-145) mmol/L Potassium 4.4 4.2 (3.5-5.1) mmol/L Chloride 108 H 107 (98-107) mmol/L Carbon Dioxide 24 25 (22-30) mmol/L BUN 47 H 46 H (7-17) mg/dL Creatinine 1.38 H 1.34 H (0.52-1.04) mg/dL Glucose 169 H 136 H (74-99) mg/dL Calcium 8.4 8.1 L (8.4-10.2) mg/dL Adrenal panel 03/07/22 03/08/22 Range/Units 16:42 02:14 Sodium 138 137 (137-145) mmol/L Potassium 4.4 4.2 (3.5-5.1) mmol/L Chloride 108 H 107 (98-107) mmol/L Carbon Dioxide 24 25 (22-30) mmol/L BUN 47 H 46 H (7-17) mg/dL Creatinine 1.38 H 1.34 H (0.52-1.04) mg/dL Glucose 169 H 136 H (74-99) mg/dL Calcium 8.4 8.1 L (8.4-10.2) mg/dL Total Bilirubin 0.3 (0.2-1.3) mg/dL AST 17 (14-36) U/L ALT 15 (4-34) U/L Alkaline Phosphatase 67 (38-126) U/L Total Protein 5.3 L (6.3-8.2) g/dL Albumin 3.1 L (3.5-5.0) g/dL
--- NOTE | 2022-03-08 09:40 | P.PN ---
Subjective Progress Note Date: 03/08/22 This is a 71-year-old female patient that [place] in [place]2022 with complaint of rectal bleeding that started this morning. Patient went to the bathroom and had a very large amount of bright red blood per rectum. Patient denied any abdominal pain, no hematemesis. She did have some nausea in the emergency department, patient has a history of hypertension, chronic kidney disease stage III, dyslipidemia, osteoarthritis. Patient takes 81 mg aspirin, Plavix, and Celebrex 200 mg every Friday on a regular basis. Denies having any previous GI bleeding. Had a colonoscopy several years ago, according to the patient was unremarkable. Admission blood work showed hemoglobin of 12.0, platelet count was 371, INR was 0.9, PT was 10.1, PTT was 24.6, electrolytes are within normal limits, BUN was 43 creatinine is 1.43. Troponin was less than 0.012, LFTs were within normal limits, lactic acid was 1.5. She was stable, patient was started on PPI, GI service has been consulted for evaluation. Patient was initially admitted to the general medical floor, however this afternoon when she got up to go to the bathroom she felt quite lightheaded, she had an urge to have a bowel movement, and she had an episode of lower GI hemorrhage, and patient was passing large amount of bright red blood per rectum. Patient became quite symptomatic, lightheaded, she was started on IV fluid bolus of 1 L, 1 unit of packed red blood cells has been ordered, repeat CBC, and patient was transferred to the intensive care unit for closer monitoring 03/08/2022, the patient is in the intensive care unit because of her massive lower GI bleed. Hemoglobin has dropped down significantly from a baseline of 1212 down to 8.5 and during the process the patient received a total of 4 units of packed RBC in the intensive care unit. Most recent hemoglobin is at 9.4. The general surgeries on the case and the patient underwent a RBC Scan and the patient was found to have activity in the left upper quadrant with swelling in the descending colon suggestive of ongoing bleeding from the different distal transverse/descending colon. As such, she is being considered for surgical intervention/possible resection. General surgeries on the case. The platelet count is at 283. The creatinine is at 1.3 with a mean of 46. Combivent testing negative. She is free of any chest pain. She is known to have multiple medical problems and comorbidities including chronic stage III kidney disease, hyperlipidemia, hypertension and she was taking Plavix on outpatient basis which was placed on hold. No nausea. No vomiting. No abdominal pain. No hematemesis. She is on IV fluids currently running at 120 mL of normal saline. She also received a liter of bolus of normal saline yesterday. She is currently nothing by mouth. Objective - Vital Signs Vital signs: Vital Signs Temp 98.4 F 03/08/22 09:06 Pulse 89 03/08/22 09:06 Resp 18 03/08/22 09:06 BP 128/67 03/08/22 09:06 Pulse Ox 97 03/08/22 09:06 FiO2 Intake & Output 03/07/22 03/08/22 03/08/22 18:59 06:59 18:59 Intake Total 120 2570 670 Balance 120 2570 670 Weight 82.554 kg 89.3 kg Intake: IV 120 1440 360 Sodium Chloride 0.9% 1, 120 1440 360 000 ml @ 120 mls/hr IV . Q8H20M [facility] Rx#:[id number] Oral 200 Blood Product 0 930 310 Rc As-1 Unit 310 [id number] Rc As-1 Unit 0 310 [id number] Rc As-1 Unit 0 310 [id number] Rc As-1 Unit 310 [id number] Other: Voiding Method Bedpan Bedpan # Voids 0 1 # Bowel Movements 3 2 - Exam GENERAL EXAM: Alert, very pleasant, 71-year-old white female, resting in bed, comfortable in no apparent distress. HEAD: Normocephalic/atraumatic. EYES: Normal reaction of pupils, equal size. Conjunctiva pink, sclera white. NOSE: Clear with pink turbinates. THROAT: No erythema or exudates. NECK: No masses, no JVD, no thyroid enlargement, no adenopathy. CHEST: No chest wall deformity. Symmetrical expansion. LUNGS: Equal air entry with no crackles, wheeze, rhonchi or dullness. CVS: Regular rate and rhythm, normal S1 and S2, no gallops, no murmurs, no rubs ABDOMEN: Soft, nontender. No hepatosplenomegaly, normal bowel sounds, no guarding or rigidity. EXTREMITIES: No clubbing, no edema, no cyanosis, 2+ pulses and upper and lower extremities. MUSCULOSKELETAL: Muscle strength and tone normal. SPINE: No scoliosis or deformity SKIN: No rashes CENTRAL NERVOUS SYSTEM: Alert and oriented -3. No focal deficits, tone is normal in all 4 extremities. PSYCHIATRIC: Alert and oriented -3. Appropriate affect. Intact judgment and insight. - Labs CBC & Chem 7: 03/08/22 02:14 03/08/22 02:14 Labs: Abnormal Lab Results - Last 24 Hours (Table) 03/07/22 03/07/22 03/07/22 Range/Units 08:15 11:56 16:42 WBC 10.7 H (3.8-10.6) k/uL RBC 3.36 L 2.65 L (3.80-5.40) m/uL Hgb 10.7 L 8.5 L D (11.4-16.0) gm/dL Hct 33.8 L 26.5 L (34.0-46.0) % MCV 100.7 H 100.1 H (80.0-100.0) fL Plt Count 476 H (150-450) k/uL APTT (22.0-30.0) sec Chloride (98-107) mmol/L BUN (7-17) mg/dL Creatinine (0.52-1.04) mg/dL Glucose (74-99) mg/dL Calcium (8.4-10.2) mg/dL Total Protein (6.3-8.2) g/dL Albumin (3.5-5.0) g/dL Crossmatch See Detail 03/07/22 03/07/22 03/07/22 Range/Units 16:42 16:42 21:30 WBC (3.8-10.6) k/uL RBC 2.92 L (3.80-5.40) m/uL Hgb 9.3 L (11.4-16.0) gm/dL Hct 28.9 L (34.0-46.0) % MCV (80.0-100.0) fL Plt Count (150-450) k/uL APTT 20.1 L (22.0-30.0) sec Chloride 108 H (98-107) mmol/L BUN 47 H (7-17) mg/dL Creatinine 1.38 H (0.52-1.04) mg/dL Glucose 169 H (74-99) mg/dL Calcium (8.4-10.2) mg/dL Total Protein 5.3 L (6.3-8.2) g/dL Albumin 3.1 L (3.5-5.0) g/dL Crossmatch 03/08/22 03/08/22 Range/Units 02:14 02:14 WBC (3.8-10.6) k/uL RBC 3.03 L (3.80-5.40) m/uL Hgb 9.4 L (11.4-16.0) gm/dL Hct 29.9 L (34.0-46.0) % MCV (80.0-100.0) fL Plt Count (150-450) k/uL APTT (22.0-30.0) sec Chloride (98-107) mmol/L BUN 46 H (7-17) mg/dL Creatinine 1.34 H (0.52-1.04) mg/dL Glucose 136 H (74-99) mg/dL Calcium 8.1 L (8.4-10.2) mg/dL Total Protein (6.3-8.2) g/dL Albumin (3.5-5.0) g/dL Crossmatch Assessment and Plan Plan: Assessment: #1. Acute GI blood loss anemia, likely related to lower GI bleeding secondary to possibility of diverticular bleeding the hemoglobin dropped as low as 8.7 the patient has received a total of 4 units of packed RBC. RBC Scan was positive and the patient has a bleeding site of the transverse colon and descending colon junction, possibly a diverticular bleed. The patient would likely need surgical intervention, due to ongoing GI bleeding. #2. Hypertension #3. Dyslipidemia #4. History of chronic kidney disease stage III #5. History of kidney stones #6. Osteoarthritis Plan: IV fluids of normal saline at the rate of 1 20 mL an hour Patient already has received a total of 4 units of packed RBC Monitor hemoglobin and CBC every 4 hours General surgery consultation regarding possible surgical resection of the descending/transverse colon Keep the patient off aspirin and Plavix and Celebrex for now Keep the patient nothing by mouth Keep the patient intensive care unit We'll continue to follow Condition is critical for now.
[2022-03-08] MEDS: PANTOPRAZOLE 40 MG/10 ML VIAL IVP SCH ×2 (09:41→20:41)
--- NOTE | 2022-03-08 09:45 | P.PN ---
Subjective Progress Note Date: 03/08/22 Principal diagnosis: GI bleed, hematochezia This is a pleasant 71-year-old female who presented to the emergency department this morning with complaints of bright red blood per rectum. States she got up this morning and went to the bathroom and noted that she had bright red blood in the toilet. She continued to have dripping and blood per rectum. She denies any pushing or constipation. No abdominal pain or cramping associated with the bleeding. She does state that she has had looser stools over the last several days. She is unsure when her last colonoscopy was but states that she is scheduled April [address] Villarreal had her previous colonoscopies were done in [place]. She denies any anticoagulation but is on Plavix, baby aspirin twice a day and takes Celebrex once a week. She has no previous history of peptic ulcer disease. Hemoglobin was stable on admission of 12.0. While in the emergency department she has had further bleeding and clots from the rectum. She has a past medical history including hypertension, dyslipidemia, and chronic kidney disease. 03/08/2022: Patient is seen and evaluated in the ICU. She continued to have heavy bleeding from the rectum throughout the night. Dark and bright red. It was recommended by gastroenterology and general surgery that patient be transferred to a tertiary center for possible coiling. Unfortunately there were no beds available. Patient was recommended by gastroenterology to undergo EGD and colonoscopy. Patient was scheduled today, however shd underwent a tagged RBC this morning that shows radiotracer in the left upper quadrant with filling of what appears to be descending colon on sequential images. Exam is suggestive for distal transverse colon acute bleed. General surgery had been consulted and plan is for surgical intervention. Patient had a drop from her initial hemoglobin of 12.0-8.5. She has had 4 units of PRBC transfusion. She has been afebrile. Temperature 98.4 heart rate 89, respiratory rate 18 blood pressure 128/67 oxygen 97% on room air. Most current labs WBC 9.5 hemoglobin 9.4 hematocrit 29 platelet count 283,000 sodium 137 potassium 4.2 BUN 46 creatinine 1.34 Objective - Vital Signs Vital signs: Vital Signs Temp 98.4 F 03/08/22 09:06 Pulse 89 03/08/22 09:06 Resp 18 03/08/22 09:06 BP 128/67 03/08/22 09:06 Pulse Ox 97 03/08/22 09:06 FiO2 Intake & Output 03/07/22 03/08/22 03/08/22 18:59 06:59 18:59 Intake Total 120 2570 670 Balance 120 2570 670 Weight 82.554 kg 89.3 kg Intake: IV 120 1440 360 Sodium Chloride 0.9% 1, 120 1440 360 000 ml @ 120 mls/hr IV . Q8H20M [facility] Rx#:[id number] Oral 200 Blood Product 0 930 310 Rc As-1 Unit 310 [id number] Rc As-1 Unit 0 310 [id number] Rc As-1 Unit 0 310 [id number] Rc As-1 Unit 310 [id number] Other: Voiding Method Bedpan Bedpan # Voids 0 1 # Bowel Movements 3 2 - Exam General appearance: The patient is alert, oriented, appears in no acute distress. HET: Head is normocephalic and atraumatic. Conjunctiva pink. Sclera anicteric. Neck: Supple without lymphadenopathy. Abdomen: Soft, nontender, nondistended with bowel sounds. No guarding or rigidity. Moderate to large amount of rectal bleeding. Extremities: Normal skin color and turgor. No pedal edema Skin: No rashes, no jaundice Neurological: No focal deficits. Alert and oriented -3. - Labs CBC & Chem 7: 03/08/22 09:30 03/08/22 02:14 Labs: Abnormal Lab Results - Last 24 Hours (Table) 03/07/22 03/07/22 03/07/22 Range/Units 08:15 11:56 16:42 WBC 10.7 H (3.8-10.6) k/uL RBC 3.36 L 2.65 L (3.80-5.40) m/uL Hgb 10.7 L 8.5 L D (11.4-16.0) gm/dL Hct 33.8 L 26.5 L (34.0-46.0) % MCV 100.7 H 100.1 H (80.0-100.0) fL Plt Count 476 H (150-450) k/uL APTT (22.0-30.0) sec Chloride (98-107) mmol/L BUN (7-17) mg/dL Creatinine (0.52-1.04) mg/dL Glucose (74-99) mg/dL Calcium (8.4-10.2) mg/dL Total Protein (6.3-8.2) g/dL Albumin (3.5-5.0) g/dL Crossmatch See Detail 03/07/22 03/07/22 03/07/22 Range/Units 16:42 16:42 21:30 WBC (3.8-10.6) k/uL RBC 2.92 L (3.80-5.40) m/uL Hgb 9.3 L (11.4-16.0) gm/dL Hct 28.9 L (34.0-46.0) % MCV (80.0-100.0) fL Plt Count (150-450) k/uL APTT 20.1 L (22.0-30.0) sec Chloride 108 H (98-107) mmol/L BUN 47 H (7-17) mg/dL Creatinine 1.38 H (0.52-1.04) mg/dL Glucose 169 H (74-99) mg/dL Calcium (8.4-10.2) mg/dL Total Protein 5.3 L (6.3-8.2) g/dL Albumin 3.1 L (3.5-5.0) g/dL Crossmatch 03/08/22 03/08/22 Range/Units 02:14 02:14 WBC (3.8-10.6) k/uL RBC 3.03 L (3.80-5.40) m/uL Hgb 9.4 L (11.4-16.0) gm/dL Hct 29.9 L (34.0-46.0) % MCV (80.0-100.0) fL Plt Count (150-450) k/uL APTT (22.0-30.0) sec Chloride (98-107) mmol/L BUN 46 H (7-17) mg/dL Creatinine 1.34 H (0.52-1.04) mg/dL Glucose 136 H (74-99) mg/dL Calcium 8.1 L (8.4-10.2) mg/dL Total Protein (6.3-8.2) g/dL Albumin (3.5-5.0) g/dL Crossmatch Assessment and Plan (1) GI bleed Narrative/Plan: 71-year-old female with a past medical history of hypertension hyperlipidemia and chronic kidney disease presented to the emergency department this morning with bright red blood per rectum. As she remained in the emergency department she continued to have bleeding per rectum, dark maroon color with clots. No previous history of GI bleed. No history of peptic ulcer disease. She does take baby aspirin twice a day, Celebrex weekly as well as Plavix. Unsure of last colonoscopy however states she is due this 04/05/[address] Ya. Po ssible etiologies include diverticular bleed, colitis, peptic ulcer disease AVM, or other possible etiologies. Will proceed with EGD and colonoscopy. Recommended by gastroenterology to undergo EGD and colonoscopy today. However patient had continued bleeding throughout the night and was unable to prep for colonoscopy. Plan was for reevaluation and to proceed with EGD and possible colonoscopy. Due to continued bleeding throughout the night transfer to tertiary center for possible coiling was also recommended however there were no beds available. patient underwent a tagged RBC with findings suggestive of distal transverse colon acute bleed. Gen. surgery had been consulted and are planning on surgical intervention today.. Patient is underwent 4 units of PRBC transfusion and remains in the ICU. Current Visit: Yes Status: Acute Code(s): K92.2 - GASTROINTESTINAL HEMORRHAGE, UNSPECIFIED SNOMED Code(s): 59299931 (2) Hematochezia Current Visit: Yes Status: Acute Code(s): K92.1 - MELENA SNOMED Code(s): 397463635 Plan: 1. Continue symptomatic supportive care 2. Nothing by mouth 3. Gen. surgery on consultation plan is for surgical intervention 4. Serial CBCs, repeat CBC daily transfuse for hemoglobin less than 7 5. Hold Plavix and aspirin 6. Protonix 40 mg twice a day Thank you for allowing us to participate in the care of the patient, the GI service will sign off, gastroenterology will not be available at the hospital this weekend. If further evaluation by gastroenterology is required the patient will need transfer as per the primary team's discretion. Dr. Cee Ya I agree with the dictator's note, documented as a scribe by Erin Sotomayor.
[2022-03-08 09:51] LABS: HCT 29.5 % (34.0-46.0); HGB 9.9 gm/dL (11.4-16.0); MCH 31.3 pg (25.0-35.0); MCHC 33.4 g/dL (31.0-37.0); MCV 93.7 fL (80.0-100.0); Mean Platelet Volume 7.9; Platelet Count 248 k/uL (150-450); RBC 3.15 m/uL (3.80-5.40); RDW 15.1 % (11.5-15.5); WBC 8.9 k/uL (3.8-10.6)
--- NOTE | 2022-03-08 11:14 | P.GSCN ---
History of Present Illness Consult date: 03/08/22 Reason for Consult: Massive lower GI bleed History of present illness: This 71-year-old female admitted to the medical service yesterday. Patient was admitted with lower GI bleed. Patient continue to have profuse lower GI bleed yesterday and last night. She's received 5 units of packed cells. She had a tagged cell scan which shows possible bleeding in the distal transverse colon left upper quadrant area. Patient's continued have rectal bleeding overnight and this morning. She appears to be hemostatic stable. She denies any abdomin al pain. She has no previous history of abdominal colon surgery. Past Medical History Past Medical History: Hypertension, Renal Disease Additional Past Medical History / Comment(s): kidney stones. History of Any Multi-Drug Resistant Organisms: None Reported Past Surgical History: Cholecystectomy Past Psychological History: No Psychological Hx Reported Smoking Status: Never smoker Past Alcohol Use History: Occasional Past Drug Use History: None Reported Medications and Allergies Home Medications Medication Instructions Recorded Confirmed Type ALPRAZolam [Xanax] 1 mg PO DAILY PRN 03/07/22 03/07/22 History Acetaminophen [Tylenol Arthritis] 1,300 mg PO QAM 03/07/22 03/07/22 History Ascorbic Acid [Vitamin C] 1,000 mg PO DAILY 03/07/22 03/07/22 History Aspirin EC [Ecotrin Low Dose] 81 mg PO HS 03/07/22 03/07/22 History Atorvastatin Calcium [Lipitor] 80 mg PO HS 03/07/22 03/07/22 History Carvedilol [Coreg] 12.5 mg PO BID 03/07/22 03/07/22 History Celecoxib [CeleBREX] 200 mg PO WE 03/07/22 03/07/22 History Cholecalciferol (Vitamin D3) 75 mcg PO HS 03/07/22 03/07/22 History [Vitamin D3 (3000 Iu)] Clopidogrel Bisulfate [Clopidogrel] 75 mg PO DAILY 03/07/22 03/07/22 History Magnesium Oxide [Mag-Ox] 400 mg PO DAILY 03/07/22 03/07/22 History Sertraline HCl [Zoloft] 100 mg PO DAILY 03/07/22 03/07/22 History Triamterene/Hydrochlorothiazid 1 tab PO DAILY 03/07/22 03/07/22 History [Triamterene-Hctz 37.5-25 mg Tb] Vitamin E (Dl,Tocopheryl Acet) 400 unit PO DAILY 03/07/22 03/07/22 History [Vitamin E (400 Iu = 180 mg)] Allergies Allergy/AdvReac Type Severity Reaction Status Date / Time No Known Allergies Allergy Verified 03/07/22 09:16 Surgical - Exam Vital Signs Temp Pulse Resp BP Pulse Ox 98.1 F 92 18 122/79 98 03/07/22 07:50 03/07/22 07:50 03/07/22 07:50 03/07/22 07:50 03/07/22 07:50 - General well developed, well nourished, no distress - Eyes PERRL - ENT normal pinna - Neck no masses - Respiratory normal expansion - Cardiovascular Rhythm: regular - Abdomen Abdomen: soft, non tender Results - Labs 03/08/22 09:30 03/08/22 02:14 Abnormal Lab Results - Last 24 Hours (Table) 03/07/22 03/07/22 03/07/22 Range/Units 08:15 11:56 16:42 WBC 10.7 H (3.8-10.6) k/uL RBC 3.36 L 2.65 L (3.80-5.40) m/uL Hgb 10.7 L 8.5 L D (11.4-16.0) gm/dL Hct 33.8 L 26.5 L (34.0-46.0) % MCV 100.7 H 100.1 H (80.0-100.0) fL Plt Count 476 H (150-450) k/uL APTT (22.0-30.0) sec Chloride (98-107) mmol/L BUN (7-17) mg/dL Creatinine (0.52-1.04) mg/dL Glucose (74-99) mg/dL Calcium (8.4-10.2) mg/dL Total Protein (6.3-8.2) g/dL Albumin (3.5-5.0) g/dL Crossmatch See Detail 03/07/22 03/07/22 03/07/22 Range/Units 16:42 16:42 21:30 WBC (3.8-10.6) k/uL RBC 2.92 L (3.80-5.40) m/uL Hgb 9.3 L (11.4-16.0) gm/dL Hct 28.9 L (34.0-46.0) % MCV (80.0-100.0) fL Plt Count (150-450) k/uL APTT 20.1 L (22.0-30.0) sec Chloride 108 H (98-107) mmol/L BUN 47 H (7-17) mg/dL Creatinine 1.38 H (0.52-1.04) mg/dL Glucose 169 H (74-99) mg/dL Calcium (8.4-10.2) mg/dL Total Protein 5.3 L (6.3-8.2) g/dL Albumin 3.1 L (3.5-5.0) g/dL Crossmatch 03/08/22 03/08/22 03/08/22 Range/Units 02:14 02:14 09:30 WBC (3.8-10.6) k/uL RBC 3.03 L 3.15 L (3.80-5.40) m/uL Hgb 9.4 L 9.9 L (11.4-16.0) gm/dL Hct 29.9 L 29.5 L (34.0-46.0) % MCV (80.0-100.0) fL Plt Count (150-450) k/uL APTT (22.0-30.0) sec Chloride (98-107) mmol/L BUN 46 H (7-17) mg/dL Creatinine 1.34 H (0.52-1.04) mg/dL Glucose 136 H (74-99) mg/dL Calcium 8.1 L (8.4-10.2) mg/dL Total Protein (6.3-8.2) g/dL Albumin (3.5-5.0) g/dL Crossmatch Diabetes panel 03/07/22 03/08/22 Range/Units 16:42 02:14 Sodium 138 137 (137-145) mmol/L Potassium 4.4 4.2 (3.5-5.1) mmol/L Chloride 108 H 107 (98-107) mmol/L Carbon Dioxide 24 25 (22-30) mmol/L BUN 47 H 46 H (7-17) mg/dL Creatinine 1.38 H 1.34 H (0.52-1.04) mg/dL Glucose 169 H 136 H (74-99) mg/dL Calcium 8.4 8.1 L (8.4-10.2) mg/dL AST 17 (14-36) U/L ALT 15 (4-34) U/L Alkaline Phosphatase 67 (38-126) U/L Total Protein 5.3 L (6.3-8.2) g/dL Albumin 3.1 L (3.5-5.0) g/dL Calcium panel 03/07/22 03/08/22 Range/Units 16:42 02:14 Calcium 8.4 8.1 L (8.4-10.2) mg/dL Albumin 3.1 L (3.5-5.0) g/dL Pituitary panel 03/07/22 03/08/22 Range/Units 16:42 02:14 Sodium 138 137 (137-145) mmol/L Potassium 4.4 4.2 (3.5-5.1) mmol/L Chloride 108 H 107 (98-107) mmol/L Carbon Dioxide 24 25 (22-30) mmol/L BUN 47 H 46 H (7-17) mg/dL Creatinine 1.38 H 1.34 H (0.52-1.04) mg/dL Glucose 169 H 136 H (74-99) mg/dL Calcium 8.4 8.1 L (8.4-10.2) mg/dL Adrenal panel 03/07/22 03/08/22 Range/Units 16:42 02:14 Sodium 138 137 (137-145) mmol/L Potassium 4.4 4.2 (3.5-5.1) mmol/L Chloride 108 H 107 (98-107) mmol/L Carbon Dioxide 24 25 (22-30) mmol/L BUN 47 H 46 H (7-17) mg/dL Creatinine 1.38 H 1.34 H (0.52-1.04) mg/dL Glucose 169 H 136 H (74-99) mg/dL Calcium 8.4 8.1 L (8.4-10.2) mg/dL Total Bilirubin 0.3 (0.2-1.3) mg/dL AST 17 (14-36) U/L ALT 15 (4-34) U/L Alkaline Phosphatase 67 (38-126) U/L Total Protein 5.3 L (6.3-8.2) g/dL Albumin 3.1 L (3.5-5.0) g/dL Assessment and Plan Assessment: Massive lower GI bleed. Patient will undergo surgery today. A lengthy discussion the patient and HER-2 sons. The patient be taken for left hemicolectomy. I did discuss the patient is a risk of bleeding at other sites of the colon. Which would require a subtotal colectomy. Patient understands that she will most likely have a temporary colostomy. All the questions have been answered.
--- NOTE | 2022-03-08 11:38 | P.DS ---
Providers Date of admission: 03/07/22 18:37 Expected date of discharge: 03/08/22 Attending physician: Shanelle Daley DO Consults: 03/07/22 09:52 Consult Physician Urgent Consulting Provider: Deb Ya Consult Reason/Comments: gi bleed Do you want consulting provider notified?: Yes 03/07/22 16:21 Consult Physician Routine Consulting Provider: Lee Mackenzie Consult Reason/Comments: icu admission Do you want consulting provider notified?: Already Contacted 03/08/22 09:03 Consult Physician Routine Consulting Provider: Jean Claude Laura Consult Reason/Comments: aucte GI bleed Do you want consulting provider notified?: Already Contacted Primary care physician: Sonny Daley [facility] Course: Patient is a 71-year-old female with chronic kidney disease age [address] Crowley, hypertension, and dyslipidemia who presented with bright red blood per rectum. In the ER she underwent an extensive evaluation. Her initial vital signs were within normal limits, initial laboratory analysis was consistent with her known chronic kidney disease. Per ER examination she was noted to have bright red blood per rectum and external hemorrhoids that were not bleeding. Patient was placed in observation. Her blood count did decrease to 10.7. Later in the afternoon she started having etta GI bleeding. She required transfer to the ICU as well as 1 unit of packed red blood cells. She was urgently seen by Dr. Bean had her bleeding had slowed. Overnight she received 4 units of packed red blood cells. She underwent tagged red blood cell scan which showed bleeding into the distal transverse colon. Surgery was consulted and plans are for a while later this afternoon. Patient seen and examined at bedside. She is feeling very tired, fatigued, just overall worn out. She denies any overt chest pain or shortness of breath. She is having some abdominal discomfort and nausea. Discussed with nursing and events as above. General: Ill-appearing, moderate distress, appears at stated age Derm: warm, dry Head: atraumatic, normocephalic, symmetric Eyes: EOMI, no lid lag, anicteric sclera Mouth: no lip lesion, mucus membranes moist Cardiovascular: S1S2 reg, no murmur, positive posterior tibial pulse bilateral, Lungs: CTA bilateral, no rhonchi, no rales , no accessory muscle use Abdominal: soft, nontender to palpation, no guarding, no appreciable organomegaly, blood pooled between her legs and running down to her knees Ext: no gross muscle atrophy, no edema, no contractures Neuro: CN II-XI grossly intact, no focal neuro deficits Psych: Alert, oriented, appropriate affect Assessment/plan: Acute blood loss anemia Lower GI bleed -Status post 4 units of packed red blood cells, 1 additional unit ordered -Patient has platelet dysfunction secondary to aspirin and Plavix and will receive 1 unit of Intra-Op platelets -Surgery plan for or this afternoon Hypertension -Hold triamterene/hydrochlorothiazide due to blood loss -Continue with Coreg -Follow blood pressures Chronic kidney disease age 1 -Baseline GFR is 35 and today's GFR is 36 -Avoid nephrotoxic agents -Monitor kidney function closely Dyslipidemia -Statin DVT prophylaxis: SCDs Discussed with: patient, Dr. Valentín moura Erin REVIEW APPRAISER Anticipated discharge date: in 1-[address]: home A total of 65 minutes was spent on the care of this complex patient more than 50% of the time was spent in counseling and care coordination. Patient Condition at Discharge: Fair Plan - Discharge Summary Discharge Rx Participant: No New Discharge Prescriptions: No Action Cholecalciferol (Vitamin D3) [Vitamin D3 (3000 Iu)] 75 mcg PO HS Atorvastatin Calcium [Lipitor] 80 mg PO HS Acetaminophen [Tylenol Arthritis] 1,300 mg PO QAM Triamterene/Hydrochlorothiazid [Triamterene-Hctz 37.5-25 mg Tb] 1 tab PO DAILY Sertraline HCl [Zoloft] 100 mg PO DAILY Celecoxib [CeleBREX] 200 mg PO WE Aspirin EC [Ecotrin Low Dose] 81 mg PO HS Ascorbic Acid [Vitamin C] 1,000 mg PO DAILY Vitamin E (Dl,Tocopheryl Acet) [Vitamin E (400 Iu = 180 mg)] 400 unit PO DAILY Magnesium Oxide [Mag-Ox] 400 mg PO DAILY Clopidogrel Bisulfate [Clopidogrel] 75 mg PO DAILY Carvedilol [Coreg] 12.5 mg PO BID ALPRAZolam [Xanax] 1 mg PO DAILY PRN PRN Reason: Anxiety Discharge Medication List ALPRAZolam [Xanax] 1 mg PO DAILY PRN 03/07/22 [History] Acetaminophen [Tylenol Arthritis] 1,300 mg PO QAM 03/07/22 [History] Ascorbic Acid [Vitamin C] 1,000 mg PO DAILY 03/07/22 [History] Aspirin EC [Ecotrin Low Dose] 81 mg PO HS 03/07/22 [History] Atorvastatin Calcium [Lipitor] 80 mg PO HS 03/07/22 [History] Carvedilol [Coreg] 12.5 mg PO BID 03/07/22 [History] Celecoxib [CeleBREX] 200 mg PO WE 03/07/22 [History] Cholecalciferol (Vitamin D3) [Vitamin D3 (3000 Iu)] 75 mcg PO HS 03/07/22 [History] Clopidogrel Bisulfate [Clopidogrel] 75 mg PO DAILY 03/07/22 [History] Magnesium Oxide [Mag-Ox] 400 mg PO DAILY 03/07/22 [History] Sertraline HCl [Zoloft] 100 mg PO DAILY 03/07/22 [History] Triamterene/Hydrochlorothiazid [Triamterene-Hctz 37.5-25 mg Tb] 1 tab PO DAILY 03/07/22 [History] Vitamin E (Dl,Tocopheryl Acet) [Vitamin E (400 Iu = 180 mg)] 400 unit PO DAILY 03/07/22 [History] Follow up Appointment(s)/Referral(s): Sonny Daley MD [Primary Care Provider] - 1-2 days
--- NOTE | 2022-03-08 14:00 | P.PN ---
Subjective Progress Note Date: 03/08/22 (delayed charting seen at 0930) Principal diagnosis: GI bleed Patient is a 71-year-old female with chronic kidney disease age [address] Crowley, hypertension, and dyslipidemia who presented with bright red blood per rectum. In the ER she underwent an extensive evaluation. Her initial vital signs were within normal limits, initial laboratory analysis was consistent with her known chronic kidney disease. Per ER examination she was noted to have bright red blood per rectum and external hemorrhoids that were not bleeding. Patient was placed in observation. Her blood count did decrease to 10.7. Later in the afternoon she started having etta GI bleeding. She required transfer to the ICU as well as 1 unit of packed red blood cells. She was urgently seen by Dr. Bean had her bleeding had slowed. Overnight she received 4 units of packed red blood cells. She underwent tagged red blood cell scan which showed bleeding into the distal transverse colon. Surgery was consulted and plans are for surgery later this afternoon. Patient seen and examined at bedside. She is feeling very tired, fatigued, just overall worn out. She denies any overt chest pain or shortness of breath. She is having some abdominal discomfort and nausea. Discussed with nursing and events as above. General: Ill-appearing, moderate distress, appears at stated age Derm: warm, dry Head: atraumatic, normocephalic, symmetric Eyes: EOMI, no lid lag, anicteric sclera Mouth: no lip lesion, mucus membranes moist Cardiovascular: S1S2 reg, no murmur, positive posterior tibial pulse bilateral, Lungs: CTA bilateral, no rhonchi, no rales , no accessory muscle use Abdominal: soft, nontender to palpation, no guarding, no appreciable organomegaly, blood pooled between her legs and running down to her knees Ext: no gross muscle atrophy, no edema, no contractures Neuro: CN II-XI grossly intact, no focal neuro deficits Psych: Alert, oriented, appropriate affect Assessment/plan: Acute blood loss anemia Lower GI bleed -Status post 4 units of packed red blood cells, 1 additional unit ordered -Patient has platelet dysfunction secondary to aspirin and Plavix and will receive 1 unit of Intra-Op platelets -Surgery plan for OR this afternoon Hypertension -Hold triamterene/hydrochlorothiazide due to blood loss -Continue with Coreg -Follow blood pressures Chronic kidney disease age 1 -Baseline GFR is 35 and today's GFR is 36 -Avoid nephrotoxic agents -Monitor kidney function closely Dyslipidemia -Statin DVT prophylaxis: SCDs Discussed with: patient, Dr. Valentín moura Erin, NP Anticipated discharge date: in 1-[address]: home A total of 65 minutes was spent on the care of this complex patient more than 50% of the time was spent in counseling and care coordination. Objective - Vital Signs Vital signs: Vital Signs Temp 98.2 F 03/08/22 12:00 Pulse 96 03/08/22 13:00 Resp 15 03/08/22 13:00 BP 123/76 03/08/22 13:00 Pulse Ox 95 03/08/22 13:00 FiO2 Intake & Output 03/07/22 03/08/22 03/08/22 18:59 06:59 18:59 Intake Total 120 2570 1150 Balance 120 2570 1150 Weight 82.554 kg 89.3 kg Intake: IV 120 1440 840 Sodium Chloride 0.9% 1, 120 1440 840 000 ml @ 120 mls/hr IV . Q8H20M [facility] Rx#:[id number] Oral 200 Blood Product 0 930 310 Rc As-1 Unit 310 [id number] Rc As-1 Unit 0 310 [id number] Rc As-1 Unit 0 310 [id number] Rc As-1 Unit 310 [id number] Other: Voiding Method Bedpan Bedpan # Voids 0 1 1 # Bowel Movements 3 2 - Labs CBC & Chem 7: 03/08/22 09:30 03/08/22 02:14 Labs: Abnormal Lab Results - Last 24 Hours (Table) 03/07/22 03/07/22 03/07/22 Range/Units 08:15 16:42 16:42 RBC 2.65 L (3.80-5.40) m/uL Hgb 8.5 L D (11.4-16.0) gm/dL Hct 26.5 L (34.0-46.0) % MCV 100.1 H (80.0-100.0) fL APTT (22.0-30.0) sec Chloride 108 H (98-107) mmol/L BUN 47 H (7-17) mg/dL Creatinine 1.38 H (0.52-1.04) mg/dL Glucose 169 H (74-99) mg/dL Calcium (8.4-10.2) mg/dL Total Protein 5.3 L (6.3-8.2) g/dL Albumin 3.1 L (3.5-5.0) g/dL Crossmatch See Detail 03/07/22 03/07/22 03/08/22 Range/Units 16:42 21:30 02:14 RBC 2.92 L (3.80-5.40) m/uL Hgb 9.3 L (11.4-16.0) gm/dL Hct 28.9 L (34.0-46.0) % MCV (80.0-100.0) fL APTT 20.1 L (22.0-30.0) sec Chloride (98-107) mmol/L BUN 46 H (7-17) mg/dL Creatinine 1.34 H (0.52-1.04) mg/dL Glucose 136 H (74-99) mg/dL Calcium 8.1 L (8.4-10.2) mg/dL Total Protein (6.3-8.2) g/dL Albumin (3.5-5.0) g/dL Crossmatch 03/08/22 03/08/22 Range/Units 02:14 09:30 RBC 3.03 L 3.15 L (3.80-5.40) m/uL Hgb 9.4 L 9.9 L (11.4-16.0) gm/dL Hct 29.9 L 29.5 L (34.0-46.0) % MCV (80.0-100.0) fL APTT (22.0-30.0) sec Chloride (98-107) mmol/L BUN (7-17) mg/dL Creatinine (0.52-1.04) mg/dL Glucose (74-99) mg/dL Calcium (8.4-10.2) mg/dL Total Protein (6.3-8.2) g/dL Albumin (3.5-5.0) g/dL Crossmatch
[2022-03-08] MEDS ORDERED: fentaNYL (PF) 50 MCG/ML 2 ML AMP ONE (14:22)
[2022-03-08] MEDS ORDERED: ROCURONIUM 10 MG/ML (5 ML VIAL) IV ONE (14:22)
[2022-03-08] MEDS ORDERED: NEOSTIGMINE 1 MG/ML 10 ML VIAL ONE (14:22)
[2022-03-08] MEDS ORDERED: LIDOCAINE 2% INJ 20 MG/ML (2 ML VIAL) ONE (14:22)
[2022-03-08] MEDS ORDERED: PROPOFOL 10 MG/ML 20 ML VIAL IV ONE (14:22)
[2022-03-08] MEDS ORDERED: SUCCINYLCHOLINE CHLORIDE 100 MG/5 ML SYR IV ONE (14:22)
[2022-03-08] MEDS ORDERED: HYDROmorphone (PF) 1 MG/ML ONE (14:22)
[2022-03-08] MEDS ORDERED: PHENYLEPHRINE-0.9% NACL SYG 1,000 MCG/10 ML SYRINGE ONE (14:22)
[2022-03-08] MEDS ORDERED: MIDAZOLAM 2 MG/2 ML VIAL ONE (14:22)
[2022-03-08] MEDS ORDERED: GLYCOPYRROLATE 0.2 MG/ML 2 ML VIAL ONE (14:22)
[2022-03-08] MEDS ORDERED: IV FLUID CONTINUATION 1,000 ML IV ONE (14:27)
[2022-03-08] MEDS ORDERED: SODIUM CHLORIDE 0.9% 50 ML with ceFAZolin 2,000 MG IV ONE ×2 (14:27)
[2022-03-08] MEDS ORDERED: LACTATED RINGERS 1,000 ML IV ONE (15:03)
--- NOTE | 2022-03-08 16:09 | P.OP ---
Date of Procedure: 03/08/22 Preoperative Diagnosis: Massive GI bleed Postoperative Diagnosis: Left colon bleed Diverticulosis Procedure(s) Performed: Colonoscopy Anesthesia: MAC Surgeon: Jean Claude Laura Pathology: other (Left colon) Condition: stable Disposition: PACU Indications for Procedure: Massive GI bleed with tagged RBC scan lighting up near splenic flexure Description of Procedure: The patient's placed on the operating table in supine position. She received general endotracheal anesthesia. Her abdomen was prepped and draped usual fashion. There was entered through a midline incision. The Bookwalter retractors placed a wound. There was explored. There appeared to be blood throughout the entire colon. There is evidence of diverticular disease in the descending and sigmoid colon. At this point decided perform a left colectomy. The patient's tagged RBC scan had lit up near the splenic flexure. The transverse colon mobilized. The splenic flexure was mobilized. And then the white line Toldt was divided in the left colon and sigmoid colon was mobilized. The distal transverse colon was transected with a JAYME stapler. Using Enseal device the mesentery the bowel was divided. The rectosigmoid area was transected with a GI stapler. The specimens of pathology. At this point the wounds presbycusis. There is no bleeding seen. The colostomy then brought up in the right upper quadrant. The fascia is closed loop #1 PDS suture. Skin was closed ramu. Class matured with 3-0 Vicryl suture. Steri-Strips applied. Patient top she will was sent to recovery room in stable condition.
[2022-03-08] MEDS: ONDANSETRON 4 MG/2 ML VIAL IVP PRN (17:34)
[2022-03-08 18:00] LABS: Basophils # (A) 0.1 k/uL (0-0.2); Basophils % (A) 1 %; Eosinophils # (A) 0.1 k/uL (0-0.7); Eosinophils % (A) 1 %; HCT 25.4 % (34.0-46.0); HGB 8.3 gm/dL (11.4-16.0); Lymphocytes # (A) 1.7 k/uL (1.0-4.8); Lymphocytes % (A) 12 %; MCH 30.9 pg (25.0-35.0); MCHC 32.7 g/dL (31.0-37.0); MCV 94.6 fL (80.0-100.0); Mean Platelet Volume 7.7; Monocytes # (A) 0.8 k/uL (0-1.0); Monocytes % (A) 5 %; Neutrophils # (A) 11.8 k/uL (1.3-7.7); Neutrophils % (A) 80 %; Platelet Count 352 k/uL (150-450); RBC 2.69 m/uL (3.80-5.40); RDW 15.7 % (11.5-15.5); WBC 14.8 k/uL (3.8-10.6)
[2022-03-08 18:12] LABS: Albumin 2.5 g/dL (3.5-5.0); Calcium 7.5 mg/dL (8.4-10.2); Potassium 3.9 mmol/L (3.5-5.1); Total Bilirubin 0.2 mg/dL (0.2-1.3); Total Protein 4.4 g/dL (6.3-8.2)
[2022-03-08] MEDS: HYDROmorphone 1 MG/ML 1 ML SYRINGE IVP PRN ×2 (19:00→22:04)
[2022-03-08] MEDS ORDERED: Potassium Replacement Protocol 1 EACH MISC MISCELLANE PRN (23:40)
[2022-03-08] MEDS ORDERED: FUROSEMIDE 10 MG/ML 2 ML VIAL IV STA (23:42)
[2022-03-09] MEDS ORDERED: POTASSIUM BICARBONATE/CIT AC 20 MEQ TABLET.EFF NG-TUBE SCH
[2022-03-09] MEDS: HYDROmorphone 1 MG/ML 1 ML SYRINGE IVP PRN ×5 (01:13→15:10)
[2022-03-09] MEDS: ONDANSETRON 4 MG/2 ML VIAL IVP PRN ×2 (01:48→15:40)
[2022-03-09] MEDS: SODIUM CHLORIDE 0.9% 1,000 ML IV SCH ×2 (05:00→17:59)
[2022-03-09 06:53] LABS: Anisocytosis Slight; HCT 23.7 % (34.0-46.0); HGB 7.6 gm/dL (11.4-16.0); Hypochromasia Slight; MCHC 32.2 g/dL (31.0-37.0); MCV 96.2 fL (80.0-100.0); Mean Platelet Volume 8.2; Platelet Count 340 k/uL (150-450); Poikilocytosis Slight; RBC 2.46 m/uL (3.80-5.40); RDW 16.2 % (11.5-15.5)
[2022-03-09 07:07] LABS: Albumin 2.8 g/dL (3.5-5.0); Calcium 7.6 mg/dL (8.4-10.2); Magnesium 1.6 mg/dL (1.6-2.3); Phosphorus 5.3 mg/dL (2.5-4.5); Potassium 4.4 mmol/L (3.5-5.1); Total Bilirubin 0.2 mg/dL (0.2-1.3); Total Protein 4.7 g/dL (6.3-8.2)
[2022-03-09] MEDS ORDERED: SODIUM CHLORIDE 0.9% 2,000 ML IV ONE (07:57)
--- NOTE | 2022-03-09 08:03 | P.PN ---
Subjective Progress Note Date: 03/09/22 This is a 71-year-old female patient that came in [place] the [place]07/2022 with complaint of rectal bleeding that started this morning. Patient went to the bathroom and had a very large amount of bright red blood per rectum. Patient denied any abdominal pain, no hematemesis. She did have some nausea in the emergency department, patient has a history of hypertension, chronic kidney disease stage III, dyslipidemia, osteoarthritis. Patient takes 81 mg aspirin, Plavix, and Celebrex 200 mg every Friday on a regular basis. Denies having any previous GI bleeding. Had a colonoscopy several years ago, according to the patient was unremarkable. Admission blood work showed hemoglobin of 12.0, platelet count was 371, INR was 0.9, PT was 10.1, PTT was 24.6, electrolytes are within normal limits, BUN was 43 creatinine is 1.43. Troponin was less than 0.012, LFTs were within normal limits, lactic acid was 1.5. She was stable, patient was started on PPI, GI service has been consulted for evaluation. Patient was initially admitted to the general medical floor, however this afternoon when she got up to go to the bathroom she felt quite lightheaded, she had an urge to have a bowel movement, and she had an episode of lower GI hemorrhage, and patient was passing large amount of bright red blood per rectum. Patient became quite symptomatic, lightheaded, she was started on IV fluid bolus of 1 L, 1 unit of packed red blood cells has been ordered, repeat CBC, and patient was transferred to the intensive care unit for closer monitoring 03/08/2022, the patient is in the intensive care unit because of her massive lower GI bleed. Hemoglobin has dropped down significantly from a baseline of 1212 down to 8.5 and during the process the patient received a total of 4 units of packed RBC in the intensive care unit. Most recent hemoglobin is at 9.4. The general surgeries on the case and the patient underwent a RBC Scan and the patient was found to have activity in the left upper quadrant with swelling in the descending colon suggestive of ongoing bleeding from the different distal transverse/descending colon. As such, she is being considered for surgical intervention/possible resection. General surgeries on the case. The platelet count is at 283. The creatinine is at 1.3 with a mean of 46. Combivent testing negative. She is free of any chest pain. She is known to have multiple medical problems and comorbidities including chronic stage III kidney disease, hyperlipidemia, hypertension and she was taking Plavix on outpatient basis which was placed on hold. No nausea. No vomiting. No abdominal pain. No hematemesis. She is on IV fluids currently running at 120 mL of normal saline. She also received a liter of bolus of normal saline yesterday. She is currently nothing by mouth. 03/09/2022, the patient is in intensive care unit and she is postop. The patient was taken to the operating room with ongoing diverticular bleed and the positive RBC tagged scan. The patient underwent a left colectomy and she was given an and colostomy. Currently she is postop day #1. She was extubated in the operating room and she was brought back to the ICU. Currently she is on 2 L of oxygen by nasal cannula. Overnight, the patient was kept on IV fluids with normal saline at the rate of 130 mL an hour. Urine output was low. Furthe rmore, the creatinine today is at 2.04 with a BUN of 46. The patient will be given another 2 L of normal saline bolus. Hemoglobin is at 7.6 and the patient has a white cell count of 17. She is awake and alert. No endocrine issues with pain. Abdomen is slightly tense. Bowel sounds are hypoactive and colostomy site shows no output at this point in time. Pulses are equal and symmetrical in all 4 extremities and she is arousable and she is communicating. Noted the patient is chronic stage III kidney disease. She also has history of hypertension and osteoarthritis and hyperlipidemia. She is using incentive spirometer. Currently she is on 2 L of oxygen by nasal cannula. She has Dilaudid for pain control. She has compression devices to lower extremities for DVT prophylaxis. Objective - Vital Signs Vital signs: Vital Signs Temp 97.3 F L 03/09/22 04:00 Pulse 110 H 03/09/22 07:00 Resp 15 03/09/22 07:00 BP 96/63 03/09/22 07:00 Pulse Ox 92 L 03/09/22 07:00 FiO2 Intake & Output 03/08/22 03/09/22 03/09/22 18:59 06:59 18:59 Intake Total 2390 2120 120 Output Total 355 275 8 Balance 2034 1844 112 Weight 91.7 kg Intake: IV 2080 1400 120 Sodium Chloride 0.9% 1, 1180 1400 120 000 ml @ 120 mls/hr IV . Q8H20M [facility] Rx#:[id number] Intake, IV Titration 360 Amount Sodium Chloride 0.9% 1, 360 000 ml @ 120 mls/hr IV . Q8H20M [facility] Rx#:[id number] Oral 360 Blood Product 310 Rc As-1 Unit 310 [id number] Output: Urine 305 275 8 Estimated Blood Loss 50 Other: Voiding Method Indwelling Catheter Indwelling Catheter # Voids 1 # Bowel Movements 2 - Exam GENERAL EXAM: Alert, very pleasant, 71-year-old white female, resting in bed, comfortable in no apparent distress. Currently on 2 L of O2 nasal cannula HEAD: Normocephalic/atraumatic. EYES: Normal reaction of pupils, equal size. Conjunctiva pink, sclera white. NOSE: Clear with pink turbinates. THROAT: No erythema or exudates. NECK: No masses, no JVD, no thyroid enlargement, no adenopathy. CHEST: No chest wall deformity. Symmetrical expansion. LUNGS: Equal air entry with no crackles, wheeze, rhonchi or dullness. CVS: Regular rate and rhythm, normal S1 and S2, no gallops, no murmurs, no rubs ABDOMEN: Soft, nontender. The incision site over the mid abdominal wall is dry clean and intact. No evidence of any bleeding and there is a colostomy site which is nonfunctional this point in time. Bowel sounds are absent. No hepatosplenomegaly, normal bowel sounds, no guarding or rigidity. EXTREMITIES: No clubbing, no edema, no cyanosis, 2+ pulses and upper and lower extremities. MUSCULOSKELETAL: Muscle strength and tone normal. SPINE: No scoliosis or deformity SKIN: No rashes CENTRAL NERVOUS SYSTEM: Alert and oriented -3. No focal deficits, tone is normal in all 4 extremities. PSYCHIATRIC: Alert and oriented -3. Appropriate affect. Intact judgment and insight. - Labs CBC & Chem 7: 03/09/22 06:11 03/09/22 06:11 Labs: Abnormal Lab Results - Last 24 Hours (Table) 03/07/22 03/08/22 03/08/22 Range/Units 08:15 09:30 17:38 WBC 14.8 H (3.8-10.6) k/uL RBC 3.15 L 2.69 L (3.80-5.40) m/uL Hgb 9.9 L 8.3 L D (11.4-16.0) gm/dL Hct 29.5 L 25.4 L (34.0-46.0) % RDW 15.7 H (11.5-15.5) % Neutrophils # 11.8 H (1.3-7.7) k/uL Chloride (98-107) mmol/L Carbon Dioxide (22-30) mmol/L BUN (7-17) mg/dL Creatinine (0.52-1.04) mg/dL Glucose (74-99) mg/dL Calcium (8.4-10.2) mg/dL Phosphorus (2.5-4.5) mg/dL Alkaline Phosphatase (38-126) U/L Total Protein (6.3-8.2) g/dL Albumin (3.5-5.0) g/dL Crossmatch See Detail 03/08/22 03/09/22 03/09/22 Range/Units 17:38 06:11 06:11 WBC 17.0 H (3.8-10.6) k/uL RBC 2.46 L (3.80-5.40) m/uL Hgb 7.6 L (11.4-16.0) gm/dL Hct 23.7 L (34.0-46.0) % RDW 16.2 H (11.5-15.5) % Neutrophils # (1.3-7.7) k/uL Chloride 113 H 109 H (98-107) mmol/L Carbon Dioxide 19 L (22-30) mmol/L BUN 43 H 46 H (7-17) mg/dL Creatinine 1.37 H 2.04 H (0.52-1.04) mg/dL Glucose 172 H 167 H (74-99) mg/dL Calcium 7.5 L 7.6 L (8.4-10.2) mg/dL Phosphorus 5.3 H (2.5-4.5) mg/dL Alkaline Phosphatase 37 L (38-126) U/L Total Protein 4.4 L 4.7 L (6.3-8.2) g/dL Albumin 2.5 L 2.8 L (3.5-5.0) g/dL Crossmatch Assessment and Plan Plan: Assessment: #1. Left colectomy with colostomy. The patient is postop day #1. The patient presented to us with a acute GI blood loss anemia, likely related to lower GI bleeding secondary to possibility of diverticular bleeding the hemoglobin dropped as low as 8.7 the patient has received a total of 4 units of packed RBC. RBC Scan was positive and the patient has a bleeding site of the transverse colon and descending colon junction, possibly a diverticular bleed. Based on all this, the patient was taken to the operating room. The current hemoglobin is at 7.6. The patient is hemodynamically stable. Urine output is low at this point in time. #2. Hypertension #3. Dyslipidemia #4. Acute on chronic kidney disease stage III, rule out postsurgical ATN. The patient has a Rivera catheter in place. Urine output is low at this point in time. #5. History of kidney stones #6. Osteoarthritis #7 acute hypoxic respiratory failure currently on 2 L of oxygen by nasal cannula, expected outcome of surgery Plan: Give the patient bolus of 2 L amount of urine output. Continue the maintenance IV fluids of normal saline at the rate of 120 mL an h our Patient already has received a total of 4 units of packed RBC Monitor the hemoglobin and the most recent hemoglobin is at 7.6 Start the patient on heparin subcu for DVT prophylaxis 5000 units every 8 hours Keep the patient nothing by mouth for now Provide patient incentive spirometer No oral medications for now Dilaudid for pain control Monitor the white cell count. The patient had a rise in the white cell count up to 17. We'll check a pro-calcitonin level. Start the patient empiric anti biotic coverage with IV Zosyn. Keep the patient intensive care unit We'll continue to follow Condition is critical for now.
[2022-03-09] MEDS: carvediloL 12.5 MG TAB PO SCH ×2 (09:04→17:40)
[2022-03-09] MEDS: PANTOPRAZOLE 40 MG/10 ML VIAL IVP SCH ×2 (09:05→20:57)
[2022-03-09] MEDS: PIPERACILLIN-TAZOBACTAM 3.375 GM in SODIUM CHLORIDE 0.9% 100 ML IVPB SCH ×2 (09:05→20:57)
[2022-03-09] MEDS: SERTRALINE 100 MG TAB PO SCH (09:07)
--- NOTE | 2022-03-09 09:59 | P.PN ---
Subjective Progress Note Date: 03/09/22 Patient reports noted complaints today. Says she's doing well following her surgery. Does feel generally weak and fatigued. Reporting back pain from lying on her back, reports she is a side sleeper and would be more comfortable now position. Status post left colectomy with colostomy. Received total of 4 units of packed red blood cells. Involvement 7.2 today, creatinine is up to 2.1, BUNs up to 46. Gen: awake, alert HEENT: normocephalic, atraumatic, good hearing acuity, moist mucous membranes Resp: good air exchange, breathing comfortably with no accessory muscle use, no tactile fremitus CVS: good distal perfusion x 4, GI: soft, NTTP, ND, colostomy bag present : no SPT, no CVAT, frank catheter is present MSK: no pitting edema, no clubbing Neuro: non-focal, moving all extremities Psych: cooperative, euthymic mood Assessment/plan: Acute blood loss anemia Lower GI bleed -Status post 4 units of packed red blood cells, 1 additional unit ordered -Patient has platelet dysfunction secondary to aspirin and Plavix and will receive 1 unit of Intra-Op platelets -S/p left colectomy with diverting colostomy Hypertension -Hold triamterene/hydrochlorothiazide due to blood loss -Continue with Coreg -Follow blood pressures Acute kidney injury superimposed on Chronic kidney disease age 1 -Baseline GFR is 35 and today's GFR is 36 -Avoid nephrotoxic agents -Monitor kidney function closely -Additional 2 L of IV fluids today -Likely secondary to blood loss Dyslipidemia -Statin DVT prophylaxis: SCDs Anticipated discharge date: in 1-[address]: home Objective - Vital Signs Vital signs: Vital Signs Temp 97.9 F 03/09/22 08:00 Pulse 100 03/09/22 09:00 Resp 14 03/09/22 09:00 BP 97/56 03/09/22 09:00 Pulse Ox 96 03/09/22 09:00 FiO2 Intake & Output 03/08/22 03/09/22 03/09/22 18:59 06:59 18:59 Intake Total 2390 2120 120 Output Total 355 275 8 Balance 2034 1845 112 Weight 91.7 kg Intake: IV 2080 1400 120 Sodium Chloride 0.9% 1, 1180 1400 120 000 ml @ 120 mls/hr IV . Q8H20M [facility] Rx#:[id number] Intake, IV Titration 360 Amount Sodium Chloride 0.9% 1, 360 000 ml @ 120 mls/hr IV . Q8H20M [facility] Rx#:[id number] Oral 360 Blood Product 310 Rc As-1 Unit 310 [id number] Output: Urine 305 275 8 Estimated Blood Loss 50 Other: Voiding Method Indwelling Catheter Indwelling Catheter # Voids 1 # Bowel Movements 2 - Labs CBC & Chem 7: 03/09/22 06:11 03/09/22 06:11 Labs: Abnormal Lab Results - Last 24 Hours (Table) 03/08/22 03/08/22 03/09/22 Range/Units 17:38 17:38 06:11 WBC 14.8 H 17.0 H (3.8-10.6) k/uL RBC 2.69 L 2.46 L (3.80-5.40) m/uL Hgb 8.3 L D 7.6 L (11.4-16.0) gm/dL Hct 25.4 L 23.7 L (34.0-46.0) % RDW 15.7 H 16.2 H (11.5-15.5) % Neutrophils # 11.8 H (1.3-7.7) k/uL Chloride 113 H (98-107) mmol/L Carbon Dioxide (22-30) mmol/L BUN 43 H (7-17) mg/dL Creatinine 1.37 H (0.52-1.04) mg/dL Glucose 172 H (74-99) mg/dL Calcium 7.5 L (8.4-10.2) mg/dL Phosphorus (2.5-4.5) mg/dL Alkaline Phosphatase 37 L (38-126) U/L Total Protein 4.4 L (6.3-8.2) g/dL Albumin 2.5 L (3.5-5.0) g/dL 03/09/22 Range/Units 06:11 WBC (3.8-10.6) k/uL RBC (3.80-5.40) m/uL Hgb (11.4-16.0) gm/dL Hct (34.0-46.0) % RDW (11.5-15.5) % Neutrophils # (1.3-7.7) k/uL Chloride 109 H (98-107) mmol/L Carbon Dioxide 19 L (22-30) mmol/L BUN 46 H (7-17) mg/dL Creatinine 2.04 H (0.52-1.04) mg/dL Glucose 167 H (74-99) mg/dL Calcium 7.6 L (8.4-10.2) mg/dL Phosphorus 5.3 H (2.5-4.5) mg/dL Alkaline Phosphatase (38-126) U/L Total Protein 4.7 L (6.3-8.2) g/dL Albumin 2.8 L (3.5-5.0) g/dL
--- NOTE | 2022-03-09 11:23 | P.PN ---
Progress Note - Text Progress Note Date: 03/09/22 Patient's postoperative day 1 from left colectomy for massive lower GI bleed. She's remained medically stable. She's had no further evidence of GI bleed. On exam vital signs are stable. Abdomen soft. Incision is clean dry intact. There is minimal output through the colostomy. The Status post left club. Patient continue clear liquids. She'll be observed closely.
[2022-03-09] MEDS ORDERED: DEXTROSE/WATER 1 250ML.BAG with DOPamine DRIP 800 MG IV SCH (15:00)
[2022-03-09] MEDS: HEPARIN SODIUM,PORCINE/PF 5,000 UNIT/0.5 ML SYRINGE SQ SCH (15:59)
[2022-03-10] MEDS: HEPARIN SODIUM,PORCINE/PF 5,000 UNIT/0.5 ML SYRINGE SQ SCH ×3 (02:15→17:49)
[2022-03-10] MEDS: SODIUM CHLORIDE 0.9% 1,000 ML IV SCH ×3 (06:31→17:49)
[2022-03-10] MEDS: ONDANSETRON 4 MG/2 ML VIAL IVP PRN ×2 (06:50→21:56)
[2022-03-10] MEDS: HYDROmorphone 1 MG/ML 1 ML SYRINGE IVP PRN ×2 (07:05→21:56)
--- NOTE | 2022-03-10 08:31 | P.PN ---
Subjective Progress Note Date: 03/10/22 Patient is doing well today, had nausea this morning, however, resolved with IV medication. Labs are pending today. Patient has been stable status post left colectomy with diverting colostomy. Medically cleared to be transferred from ICU to the floor if amenable by surgery and pulmonary specialties. Gen: awake, alert HEENT: normocephalic, atraumatic, good hearing acuity, moist mucous membranes Resp: good air exchange, breathing comfortably with no accessory muscle use, no tactile fremitus CVS: good distal perfusion x 4, GI: soft, NTTP, ND, colostomy bag present : no SPT, no CVAT, frank catheter is present MSK: no pitting edema, no clubbing Neuro: non-focal, moving all extremities Psych: cooperative, euthymic mood Assessment/plan: Acute blood loss anemia Lower GI bleed -Status post 4 units of packed red blood cells, 1 additional unit ordered -Patient has platelet dysfunction secondary to aspirin and Plavix and will receive 1 unit of Intra-Op platelets -S/p left colectomy with diverting colostomy Hypertension -Hold triamterene/hydrochlorothiazide due to blood loss -Continue with Coreg -Follow blood pressures Acute kidney injury superimposed on Chronic kidney disease age 1 -Baseline GFR is 35 and today's GFR is 36 -Avoid nephrotoxic agents -Monitor kidney function closely -Additional 2 L of IV fluids today -Likely secondary to blood loss Dyslipidemia -Statin DVT prophylaxis: SCDs Anticipated discharge date: in 1-[address]: home Objective - Vital Signs Vital signs: Vital Signs Temp 99.6 F 03/10/22 06:00 Pulse 92 03/10/22 07:00 Resp 12 03/10/22 07:00 BP 116/52 03/10/22 07:00 Pulse Ox 99 03/10/22 07:00 FiO2 Intake & Output 03/09/22 03/10/22 03/10/22 18:59 06:59 18:59 Intake Total 3840 1140 20 Output Total 215 1180 75 Balance 3625 -40 -55 Weight 98.6 kg Intake: IV 840 1140 20 Sodium Chloride 0.9% 1, 840 1140 20 000 ml @ 120 mls/hr IV . Q8H20M [facility] Rx#:[id number] Intake, IV Titration 2100 Amount Piperacillin-Tazobactam 3 100 .375 gm In Sodium Chloride 0.9% 100 ml @ 25 mls/hr IVPB Q12HR [facility] Rx #:[id number] Sodium Chloride 0.9% 2, 2000 000 ml @ 999 mls/hr IV . Q2H1M [facility] Rx#:[id number] Oral 900 Output: Urine 215 1180 75 Other: Voiding Method Indwelling Catheter Indwelling Catheter - Labs CBC & Chem 7: 03/09/22 06:11 03/09/22 06:11 Labs: Abnormal Lab Results - Last 24 Hours (Table) 03/07/22 03/09/22 Range/Units 08:15 06:11 Procalcitonin 4.18 H (0.02-0.09) ng/mL Crossmatch See Detail
[2022-03-10] MEDS: SERTRALINE 100 MG TAB PO SCH (08:37)
[2022-03-10] MEDS: PANTOPRAZOLE 40 MG/10 ML VIAL IVP SCH ×2 (08:37→20:44)
[2022-03-10] MEDS: carvediloL 12.5 MG TAB PO SCH ×3 (08:37→17:52)
[2022-03-10] MEDS: PIPERACILLIN-TAZOBACTAM 3.375 GM in SODIUM CHLORIDE 0.9% 100 ML IVPB SCH ×2 (08:38→20:44)
--- NOTE | 2022-03-10 09:35 | P.PN ---
Subjective Progress Note Date: 03/10/22 This is a 71-year-old female patient that [place] in [place]2022 with complaint of rectal bleeding that started this morning. Patient went to the bathroom and had a very large amount of bright red blood per rectum. Patient denied any abdominal pain, no hematemesis. She did have some nausea in the emergency department, patient has a history of hypertension, chronic kidney disease stage III, dyslipidemia, osteoarthritis. Patient takes 81 mg aspirin, Plavix, and Celebrex 200 mg every Friday on a regular basis. Denies having any previous GI bleeding. Had a colonoscopy several years ago, according to the patient was unremarkable. Admission blood work showed hemoglobin of 12.0, platelet count was 371, INR was 0.9, PT was 10.1, PTT was 24.6, electrolytes are within normal limits, BUN was 43 creatinine is 1.43. Troponin was less than 0.012, LFTs were within normal limits, lactic acid was 1.5. She was stable, patient was started on PPI, GI service has been consulted for evaluation. Patient was initially admitted to the general medical floor, however this afternoon when she got up to go to the bathroom she felt quite lightheaded, she had an urge to have a bowel movement, and she had an episode of lower GI hemorrhage, and patient was passing large amount of bright red blood per rectum. Patient became quite symptomatic, lightheaded, she was started on IV fluid bolus of 1 L, 1 unit of packed red blood cells has been ordered, repeat CBC, and patient was transferred to the intensive care unit for closer monitoring 03/08/2022, the patient is in the intensive care unit because of her massive lower GI bleed. Hemoglobin has dropped down significantly from a baseline of 1212 down to 8.5 and during the process the patient received a total of 4 units of packed RBC in the intensive care unit. Most recent hemoglobin is at 9.4. The general surgeries on the case and the patient underwent a RBC Scan and the patient was found to have activity in the left upper quadrant with swelling in the descending colon suggestive of ongoing bleeding from the different distal transverse/descending colon. As such, she is being considered for surgical intervention/possible resection. General surgeries on the case. The platelet count is at 283. The creatinine is at 1.3 with a mean of 46. Combivent testing negative. She is free of any chest pain. She is known to have multiple medical problems and comorbidities including chronic stage III kidney disease, hyperlipidemia, hypertension and she was taking Plavix on outpatient basis which was placed on hold. No nausea. No vomiting. No abdominal pain. No hematemesis. She is on IV fluids currently running at 120 mL of normal saline. She also received a liter of bolus of normal saline yesterday. She is currently nothing by mouth. 03/09/2022, the patient is in intensive care unit and she is postop. The patient was taken to the operating room with ongoing diverticular bleed and the positive RBC tagged scan. The patient underwent a left colectomy and she was given an and colostomy. Currently she is postop day #1. She was extubated in the operating room and she was brought back to the ICU. Currently she is on 2 L of oxygen by nasal cannula. Overnight, the patient was kept on IV fluids with normal saline at the rate of 130 mL an hour. Urine output was low. Furthe rmore, the creatinine today is at 2.04 with a BUN of 46. The patient will be given another 2 L of normal saline bolus. Hemoglobin is at 7.6 and the patient has a white cell count of 17. She is awake and alert. No endocrine issues with pain. Abdomen is slightly tense. Bowel sounds are hypoactive and colostomy site shows no output at this point in time. Pulses are equal and symmetrical in all 4 extremities and she is arousable and she is communicating. Noted the patient is chronic stage III kidney disease. She also has history of hypertension and osteoarthritis and hyperlipidemia. She is using incentive spirometer. Currently she is on 2 L of oxygen by nasal cannula. She has Dilaudid for pain control. She has compression devices to lower extremities for DVT prophylaxis. 03/10/2022, the patient is postop day #2. In general, the patient is doing well. She encounters some low urine output yesterday. She was given IV fluids. She was also given dopamine renal dose which made her quite nauseous. The medication was stopped. Currently, she is stable. She is taking some clear liquid diet. No major output in her colostomy bag at this point in time. She burps. Her nausea has settled as the patient was given Zofran and IV Protonix. She is currently on oxygen at 3 L nasal cannula. All of the blood work is from yesterday and today's blood work is still pending. Meanwhile, the blood work from yesterday showed that her white cell count is at 17 with a hemoglobin of 7. 6 and a platelet count of 340. Urine is a 46 with a creatinine of 2.04. Sodium level is at 137. Serum bicarb is at 19 and anion gap is at 9. The patient's liver function tests are essentially within normal limits. Note that the patient is currently on IV fluids which is currently running at 1 20 mL an hour. She is on Dilaudid for pain control. Pain is under adequate control for now. She is also on heparin for DVT prophylaxis. The Objective - Vital Signs Vital signs: Vital Signs Temp 99.6 F 03/10/22 06:00 Pulse 92 03/10/22 07:00 Resp 12 03/10/22 07:00 BP 116/52 03/10/22 07:00 Pulse Ox 99 03/10/22 07:00 FiO2 Intake & Output 03/09/22 03/10/22 03/10/22 18:59 06:59 18:59 Intake Total 3840 1140 20 Output Total 215 1180 75 Balance 3625 -40 -55 Weight 98.6 kg Intake: IV 840 1140 20 Sodium Chloride 0.9% 1, 840 1140 20 000 ml @ 120 mls/hr IV . Q8H20M [facility] Rx#:[id number] Intake, IV Titration 2100 Amount Piperacillin-Tazobactam 3 100 .375 gm In Sodium Chloride 0.9% 100 ml @ 25 mls/hr IVPB Q12HR [facility] Rx #:[id number] Sodium Chloride 0.9% 2, 2000 000 ml @ 999 mls/hr IV . Q2H1M [facility] Rx#:[id number] Oral 900 Output: Urine 215 1180 75 Other: Voiding Method Indwelling Catheter Indwelling Catheter - Exam GENERAL EXAM: Alert, very pleasant, 71-year-old white female, resting in bed, comfortable in no apparent distress. Currently on 2 L of O2 nasal cannula HEAD: Normocephalic/atraumatic. EYES: Normal reaction of pupils, equal size. Conjunctiva pink, sclera white. NOSE: Clear with pink turbinates. THROAT: No erythema or exudates. NECK: No masses, no JVD, no thyroid enlargement, no adenopathy. CHEST: No chest wall deformity. Symmetrical expansion. LUNGS: Equal air entry with no crackles, wheeze, rhonchi or dullness. CVS: Regular rate and rhythm, normal S1 and S2, no gallops, no murmurs, no rubs ABDOMEN: Soft, nontender. The incision site over the mid abdominal wall is dry clean and intact. No evidence of any bleeding and there is a colostomy site which is nonfunctional this point in time. Bowel sounds are absent. No hepatosplenomegaly, normal bowel sounds, no guarding or rigidity. EXTREMITIES: No clubbing, no edema, no cyanosis, 2+ pulses and upper and lower extremities. MUSCULOSKELETAL: Muscle strength and tone normal. SPINE: No scoliosis or deformity SKIN: No rashes CENTRAL NERVOUS SYSTEM: Alert and oriented -3. No focal deficits, tone is normal in all 4 extremities. PSYCHIATRIC: Alert and oriented -3. Appropriate affect. Intact judgment and insight. - Labs CBC & Chem 7: 03/09/22 06:11 03/09/22 06:11 Labs: Abnormal Lab Results - Last 24 Hours (Table) 03/07/22 03/09/22 Range/Units 08:15 06:11 Procalcitonin 4.18 H (0.02-0.09) ng/mL Crossmatch See Detail Assessment and Plan Plan: Assessment: #1. Left colectomy with colostomy. The patient is postop day #2. The patient presented to us with a acute GI blood loss anemia, likely related to lower GI bleeding secondary to possibility of diverticular bleeding the hemoglobin dropped as low as 8.7 the patient has received a total of 4 units of packed RBC. RBC Scan was positive and the patient has a bleeding site of the transverse colon and descending colon junction, possibly a diverticular bleed. Based on all this, the atient was taken to the operating room. The current hemoglobin is at . The patient is hemodynamically stable at 7.6 from yesterday and the repeat hemoglobin is pending from today. . Urine output improved for now #2. Hypertension #3. Dyslipidemia #4. Acute on chronic kidney disease stage III, rule out postsurgical ATN. The patient has a Rivera catheter in place. Urine output is improving #5. History of kidney stones #6. Osteoarthritis #7 acute hypoxic respiratory failure currently on 2 L of oxygen by nasal cannula, expected outcome of surgery Plan: Give the patient bolus of 2 L amount of urine output. Continue the maintenance IV fluids of normal saline at the rate of 150 mL an hour Patient already has received a total of 4 units of packed RBC Monitor the hemoglobin and the most recent hemoglobin is at 7.6 awaiting follow- up blood work and hemoglobin from today. Start the patient on heparin subcu for DVT prophylaxis 5000 units every 8 hours Keep clear liquids Provide patient incentive spirometer No oral medications for now Dilaudid for pain control The full calcitonin level was 4.18. The white cell count from today is pending. The blood work from today is also pending. Monitor the white cell count. ' empiric antibiotic coverage with IV Zosyn. Keep the patient intensive care unit We'll continue to follow Condition is critical for now.
[2022-03-10 10:29] LABS: MCH 30.3 pg (25.0-35.0); MCHC 31.7 g/dL (31.0-37.0); MCV 95.4 fL (80.0-100.0); Mean Platelet Volume 8.1; Platelet Count 204 k/uL (150-450); RBC 1.66 m/uL (3.80-5.40); RDW 15.8 % (11.5-15.5); WBC 9.6 k/uL (3.8-10.6)
[2022-03-10 10:42] LABS: HCT 15.8 % (34.0-46.0)
[2022-03-10 10:43] LABS: Calcium 7.5 mg/dL (8.4-10.2); Potassium 3.8 mmol/L (3.5-5.1)
--- NOTE | 2022-03-10 11:52 | P.PN ---
Progress Note - Text Progress Note Date: 03/10/22 Patient's postoperative day 2 from extended left colectomy. She's had no further evidence of GI bleed. On exam vital signs are stable. Abdomen soft. Incision is clean dry intact. Colostomy has some small amount of function with some gas and stool in the bag. Status post extended left colectomy. 4 GI bleed. Patient is doing fairly well. She will most likely transferred out of the ICU later today.
[2022-03-10] MEDS ORDERED: PIPERACILLIN-TAZOBACTAM 3.375 GM in SODIUM CHLORIDE 0.9% 100 ML IVPB SCH (16:00)
[2022-03-11] MEDS: HEPARIN SODIUM,PORCINE/PF 5,000 UNIT/0.5 ML SYRINGE SQ SCH ×3 (00:15→17:44)
[2022-03-11] MEDS: SODIUM CHLORIDE 0.9% 1,000 ML IV SCH ×4 (00:16→17:47)
[2022-03-11] MEDS: PIPERACILLIN-TAZOBACTAM 3.375 GM in SODIUM CHLORIDE 0.9% 100 ML IVPB SCH ×3 (04:53→20:28)
[2022-03-11 07:02] LABS: Anisocytosis Slight; MCH 31.5 pg (25.0-35.0); MCHC 33.4 g/dL (31.0-37.0); MCV 94.3 fL (80.0-100.0); Mean Platelet Volume 8.7; Platelet Count 172 k/uL (150-450); RBC 2.23 m/uL (3.80-5.40); RDW 16.1 % (11.5-15.5); WBC 6.8 k/uL (3.8-10.6)
[2022-03-11 07:19] LABS: Calcium 7.6 mg/dL (8.4-10.2); Potassium 3.4 mmol/L (3.5-5.1)
[2022-03-11] MEDS: POTASSIUM CHLORIDE ER 20 MEQ TAB.ER PO SCH ×2 (08:36→12:36)
[2022-03-11] MEDS: PANTOPRAZOLE 40 MG/10 ML VIAL IVP SCH ×2 (08:36→20:28)
[2022-03-11] MEDS: carvediloL 12.5 MG TAB PO SCH ×2 (08:36→17:48)
[2022-03-11] MEDS: SERTRALINE 100 MG TAB PO SCH (08:44)
--- NOTE | 2022-03-11 11:25 | P.PN ---
Subjective Progress Note Date: 03/11/22 Principal diagnosis: Lower GI bleeding, status post left colectomy and colostomy postoperative day #3 This is a 71-year-old female patient that came in to the emergency department on [place] 03/07/2022 with complaint of rectal bleeding that started this morning. Patient went to the bathroom and had a very large amount of bright red blood per rectum. Patient denied any abdominal pain, no hematemesis. She did have some nausea in the emergency department, patient has a history of hypertension, chronic kidney disease stage III, dyslipidemia, osteoarthritis. Patient takes 81 mg aspirin, Plavix, and Celebrex 200 mg every Friday on a regular basis. Denies having any previous GI bleeding. Had a colonoscopy several years ago, according to the patient was unremarkable. Admission blood work showed hemoglobin of 12.0, platelet count was 371, INR was 0.9, PT was 10.1, PTT was 24.6, electrolytes are within normal limits, BUN was 43 creatinine is 1.43. Troponin was less than 0.012, LFTs were within normal limits, lactic acid was 1.5. She was stable, patient was started on PPI, GI service has been consulted for evaluation. Patient was initially admitted to the general medical floor, however this afternoon when she got up to go to the bathroom she felt quite lightheaded, she had an urge to have a bowel movement, and she had an episode of lower GI hemorrhage, and patient was passing large amount of bright red blood per rectum. Patient became quite symptomatic, lightheaded, she was started on IV fluid bolus of 1 L, 1 unit of packed red blood cells has been ordered, repeat CBC, and patient was transferred to the intensive care unit for closer monitoring 03/08/2022, the patient is in the intensive care unit because of her massive lower GI bleed. Hemoglobin has dropped down significantly from a baseline of 1212 down to 8.5 and during the process the patient received a total of 4 units of packed RBC in the intensive care unit. Most recent hemoglobin is at 9.4. The general surgeries on the case and the patient underwent a RBC Scan and the patient was found to have activity in the left upper quadrant with swelling in the descending colon suggestive of ongoing bleeding from the different distal transverse/descending colon. As such, she is being considered for surgical intervention/possible resection. General surgeries on the case. The platelet count is at 283. The creatinine is at 1.3 with a mean of 46. Combivent testing negative. She is free of any chest pain. She is known to have multiple medical problems and comorbidities including chronic stage III kidney disease, hyperlipidemia, hypertension and she was taking Plavix on outpatient basis which was placed on hold. No nausea. No vomiting. No abdominal pain. No hematemesis. She is on IV fluids currently running at 120 mL of normal saline. She also received a liter of bolus of normal saline yesterday. She is currently nothing by mouth. 03/09/2022, the patient is in intensive care unit and she is postop. The patient was taken to the operating room with ongoing diverticular bleed and the positive RBC tagged scan. The patient underwent a left colectomy and she was given an and colostomy. Currently she is postop day #1. She was extubated in the operating room and she was brought back to the ICU. Currently she is on 2 L of oxygen by nasal cannula. Overnight, the patient was kept on IV fluids with normal saline at the rate of 130 mL an hour. Urine output was low. Fur thermore, the creatinine today is at 2.04 with a BUN of 46. The patient will be given another 2 L of normal saline bolus. Hemoglobin is at 7.6 and the patient has a white cell count of 17. She is awake and alert. No endocrine issues with pain. Abdomen is slightly tense. Bowel sounds are hypoactive and colostomy site shows no output at this point in time. Pulses are equal and symmetrical in all 4 extremities and she is arousable and she is communicating. Noted the patient is chronic stage III kidney disease. She also has history of hypertension and osteoarthritis and hyperlipidemia. She is using incentive spirometer. Currently she is on 2 L of oxygen by nasal cannula. She has Dila udid for pain control. She has compression devices to lower extremities for DVT prophylaxis. 03/10/2022, the patient is postop day #2. In general, the patient is doing well. She encounters some low urine output yesterday. She was given IV fluids. She was also given dopamine renal dose which made her quite nauseous. The medication was stopped. Currently, she is stable. She is taking some clear liquid diet. No major output in her colostomy bag at this point in time. She burps. Her nausea has settled as the patient was given Zofran and IV Protonix. She is currently on oxygen at 3 L nasal cannula. All of the blood work is from yesterday and today's blood work is still pending. Meanwhile, the blood work from yesterday showed that her white cell count is at 17 with a hemoglobin of 7.6 and a platelet count of 340. Urine is a 46 with a creatinine of 2.04. Sodium level is at 137. Serum bicarb is at 19 and anion gap is at 9. The patient's liver function tests are essentially within normal limits. Note that the patient is currently on IV fluids which is currently running at 1 20 mL an hour. She is on Dilaudid for pain control. Pain is under adequate control for now. She is also on heparin for DVT prophylaxis. Reevaluated today on 03/11/2022, patient is now postoperative day #3. Patient seems to be resting at a bedside chair, he does not seem to be in any distress, patient is on 2 L nasal cannula, 98% saturation. IV fluid is 0.9 normal saline at 1 50 mL per hour. Patient is already on clear liquid diet, and she is doing fairly well. Patient is status post left colectomy with colostomy, patient presented mostly with diverticular bleed initially. Labs today were reviewed. WBC count is 6.8 hemoglobin is 7 electrolytes are normal renal profile is improving with BUN down to 28 creatinine down to 1.43, pro-calcitonin level was 4.1. Patient remains on Zosyn. Objective - Vital Signs Vital signs: Vital Signs Temp 98.5 F 03/11/22 08:00 Pulse 64 03/11/22 09:00 Resp 16 03/11/22 09:00 BP 110/50 03/11/22 07:00 Pulse Ox 100 03/11/22 09:00 FiO2 40 03/11/22 09:00 Intake & Output 03/10/22 03/11/22 03/11/22 18:59 06:59 18:59 Intake Total 1725 2260 475 Output Total 1200 860 225 Balance 525 1400 250 Weight 98.6 kg Intake: IV 815 1800 450 Piperacillin-Tazobactam 3 75 .375 gm In Sodium Chloride 0.9% 100 ml @ 25 mls/hr IVPB Q12HR [facility] Rx #:[id number] Sodium Chloride 0.9% 1, 740 1800 450 000 ml @ 150 mls/hr IV . Q6H40M [facility] Rx#:[id number] Intake, IV Titration 150 25 Amount Piperacillin-Tazobactam 3 100 .375 gm In Sodium Chloride 0.9% 100 ml @ 25 mls/hr IVPB Q12HR [facility] Rx #:[id number] Piperacillin-Tazobactam 3 50 25 .375 gm In Sodium Chloride 0.9% 100 ml @ 25 mls/hr IVPB Q8H [facility] Rx#: [id number] Oral 600 Blood Product 310 310 Rc As-1 Unit 310 [id number] Rc As-1 Unit 0 310 [id number] Output: Urine 1150 860 225 Urine/Stool Mix 50 Other: Voiding Method Indwelling Catheter Indwelling Catheter Indwelling Catheter - Exam Physical Exam: Revealed a 71-year-old female in no distress. Head: Atraumatic, normocephalic. HEENT:[Neck is supple.] [No neck masses.] [No thyromegaly.] [No JVD.] Chest: [Symmetrical chest expansion, diminished breath sounds at the bases no crackles or rhonchi or wheezes. Cardiac Exam: [Normal S1 and S2, no S3 gallop, no murmur.] Abdomen: Postsurgical, soft, nontender, colostomy is intact. Extremities: [No clubbing, no edema, no cyanosis.] Neurological Exam: [No focal neurologic deficit.] Alert and oriented 3. Psychiatric: Normal mood affect and normal mental status examination. Skin: No rashes. Musculoskeletal: No deformities and no limitation in range of motion. - Labs CBC & Chem 7: 03/11/22 06:45 03/11/22 06:45 Labs: Abnormal Lab Results - Last 24 Hours (Table) 03/10/22 03/11/22 03/11/22 Range/Units 11:53 06:45 06:45 RBC 2.23 L (3.80-5.40) m/uL Hgb 7.0 L D (11.4-16.0) gm/dL Hct 21.0 L (34.0-46.0) % RDW 16.1 H (11.5-15.5) % Potassium 3.4 L (3.5-5.1) mmol/L Chloride 111 H (98-107) mmol/L BUN 28 H (7-17) mg/dL Creatinine 1.43 H (0.52-1.04) mg/dL Glucose 103 H (74-99) mg/dL Calcium 7.6 L (8.4-10.2) mg/dL Crossmatch See Detail Assessment and Plan Assessment: Impression: Acute lower GI bleeding/diverticular bleed Left colectomy with colostomy postoperative day #3 Benign essential hypertension Dyslipidemia Acute on chronic kidney injury Nephrolithiasis Degenerative joint disease Recommendation: Continue present supportive care measures Continue to monitor hemoglobin and monitor for any GI bleeding. Advanced diet as tolerated. Continue heparin subcu for DVT prophylaxis Continue GI prophylaxis. Dilaudid for pain control. Continue Zosyn. Transfer patient out of the ICU to a regular medical floor. We'll continue to follow. Time with Patient: Less than 30
--- NOTE | 2022-03-11 13:50 | P.PN ---
Progress Note - Text Progress Note Date: 03/11/22 Patient's doing well. She's had no further evidence of GI bleed. She is tolerating clear liquid diet. On exam vital signs are stable. Abdomen soft. Incisions clean dry tach. Stoma is functioning. Status post left colectomy for GI bleed. Patient will be transferred to the surgical floor today.
--- NOTE | 2022-03-11 14:09 | P.PN ---
Subjective Progress Note Date: 03/11/22 Principal diagnosis: GI bleed, hematochezia This is a pleasant 71-year-old female who presented to the emergency department this morning with complaints of bright red blood per rectum. States she got up this morning and went to the bathroom and noted that she had bright red blood in the toilet. She continued to have dripping and blood per rectum. She denies any pushing or constipation. No abdominal pain or cramping associated with the bleeding. She does state that she has had looser stools over the last several days. She is unsure when her last colonoscopy was but states that she is scheduled April [address] Villarreal had her previous colonoscopies were done in [place]. She denies any anticoagulation but is on Plavix, baby aspirin twice a day and takes Celebrex once a week. She has no previous history of peptic ulcer disease. Hemoglobin was stable on admission of 12.0. While in the emergency department she has had further bleeding and clots from the rectum. She has a past medical history including hypertension, dyslipidemia, and chronic kidney disease. 03/08/2022: Patient is seen and evaluated in the ICU. She continued to have heavy bleeding from the rectum throughout the night. Dark and bright red. It was recommended by gastroenterology and general surgery that patient be transferred to a tertiary center for possible coiling. Unfortunately there were no beds available. Patient was recommended by gastroenterology to undergo EGD and colonoscopy. Patient was scheduled today, however shd underwent a tagged RBC this morning that shows radiotracer in the left upper quadrant with filling of what appears to be descending colon on sequential images. Exam is suggestive for distal transverse colon acute bleed. General surgery had been consulted and plan is for surgical intervention. Patient had a drop from her initial hemoglobin of 12.0-8.5. She has had 4 units of PRBC transfusion. She has been afebrile. Temperature 98.4 heart rate 89, respiratory rate 18 blood pressure 128/67 oxygen 97% on room air. Most current labs WBC 9.5 hemoglobin 9.4 hematocrit 29 platelet count 283,000 sodium 137 potassium 4.2 BUN 46 creatinine 1.34 03/11/2022: Patient is seen and examined as a follow-up upper GI bleed. She underwent extended left colectomy with a colostomy on 03/08/2022. She's had no bowel movement, but is passing air through her ostomy bag. No further bleeding. She did have a drop in her hemoglobin yesterday to 5.0 and was given 2 units of PRBC transfusion. Repeat hemoglobin today 7.0. She denies any nausea or vomit ing. She is on a clear liquid diet. Objective - Vital Signs Vital signs: Vital Signs Temp 97.8 F 03/11/22 04:00 Pulse 61 03/11/22 07:00 Resp 16 03/11/22 07:00 BP 110/50 03/11/22 07:00 Pulse Ox 99 03/11/22 07:00 FiO2 Intake & Output 03/10/22 03/11/22 03/11/22 18:59 06:59 18:59 Intake Total 1725 2260 175 Output Total 1200 860 75 Balance 525 1400 100 Weight 98.6 kg Intake: IV 815 1800 150 Piperacillin-Tazobactam 3 75 .375 gm In Sodium Chloride 0.9% 100 ml @ 25 mls/hr IVPB Q12HR [facility] Rx #:[id number] Sodium Chloride 0.9% 1, 740 1800 150 000 ml @ 150 mls/hr IV . Q6H40M [facility] Rx#:[id number] Intake, IV Titration 150 25 Amount Piperacillin-Tazobactam 3 100 .375 gm In Sodium Chloride 0.9% 100 ml @ 25 mls/hr IVPB Q12HR [facility] Rx #:[id number] Piperacillin-Tazobactam 3 50 25 .375 gm In Sodium Chloride 0.9% 100 ml @ 25 mls/hr IVPB Q8H [facility] Rx#: [id number] Oral 600 Blood Product 310 310 Rc As-1 Unit 310 [id number] Rc As-1 Unit 0 310 [id number] Output: Urine 1150 860 75 Urine/Stool Mix 50 Other: Voiding Method Indwelling Catheter Indwelling Catheter - Exam General appearance: The patient is alert, oriented, appears in no acute distress. HET: Head is normocephalic and atraumatic. Conjunctiva pink. Sclera anicteric. Neck: Supple without lymphadenopathy. Abdomen: Soft, colostomy with air, no blood, no stool. A surgical incision with dressing clean dry and intact. No guarding or rigidity. Extremities: Normal skin color and turgor. No pedal edema Skin: No rashes, no jaundice Neurological: No focal deficits. Alert and oriented x 3. - Labs CBC & Chem 7: 03/11/22 06:45 03/11/22 06:45 Labs: Abnormal Lab Results - Last 24 Hours (Table) 03/10/22 03/10/22 03/10/22 Range/Units 10:16 10:16 11:53 RBC 1.66 L (3.80-5.40) m/uL Hgb 5.0 L* D (11.4-16.0) gm/dL Hct 15.8 L* (34.0-46.0) % RDW 15.8 H (11.5-15.5) % Sodium 135 L (137-145) mmol/L Potassium (3.5-5.1) mmol/L Chloride 110 H (98-107) mmol/L Carbon Dioxide 20 L (22-30) mmol/L BUN 38 H (7-17) mg/dL Creatinine 1.72 H (0.52-1.04) mg/dL Glucose 123 H (74-99) mg/dL Calcium 7.5 L (8.4-10.2) mg/dL Crossmatch See Detail 03/11/22 03/11/22 Range/Units 06:45 06:45 RBC 2.23 L (3.80-5.40) m/uL Hgb 7.0 L D (11.4-16.0) gm/dL Hct 21.0 L (34.0-46.0) % RDW 16.1 H (11.5-15.5) % Sodium (137-145) mmol/L Potassium 3.4 L (3.5-5.1) mmol/L Chloride 111 H (98-107) mmol/L Carbon Dioxide (22-30) mmol/L BUN 28 H (7-17) mg/dL Creatinine 1.43 H (0.52-1.04) mg/dL Glucose 103 H (74-99) mg/dL Calcium 7.6 L (8.4-10.2) mg/dL Crossmatch Assessment and Plan (1) GI bleed Narrative/Plan: 71-year-old female with a past medical history of hypertension hyperlipidemia and chronic kidney disease presented to the emergency department this morning with bright red blood per rectum. As she remained in the emergency department she continued to have bleeding per rectum, dark maroon color with clots. No previous history of GI bleed. No history of peptic ulcer disease. She does take baby aspirin twice a day, Celebrex weekly as well as Plavix. Unsure of last colonoscopy however states she is due this 04/05/[address] Ya. Possible etiologies include diverticular bleed, colitis, peptic ulcer disease AVM, or other possible etiologies. Will proceed with EGD and colonoscopy. Recommended by gastroenterology to undergo EGD and colonoscopy today. However patient had continued bleeding throughout the night and was unable to prep for colonoscopy. Plan was for reevaluation and to proceed with EGD and possible colonoscopy. Due to continued bleeding throughout the night transfer to tertiary center for possible coiling was also recommended however there were no beds available. patient underwent a tagged RBC with findings suggestive of distal transverse colon acute bleed. Gen. surgery had been consulted and are planning on surgical intervention today.. Patient is underwent 4 units of PRBC transfusion and remains in the ICU. Current Visit: Yes Status: Acute Code(s): K92.2 - GASTROINTESTINAL HEMORRHAGE, UNSPECIFIED SNOMED Code(s): 73074006 (2) Hematochezia Current Visit: Yes Status: Acute Code(s): K92.1 - MELENA SNOMED Code(s): 343782885 Plan: Patient underwent extended left colectomy with ostomy creation. No further bleeding noted. Continue with recommendations from general surgery. Gastroenterology will sign off at this time. Dr. Cee Ya I agree with the dictator's note, documented as a scribe by Erin Sotomayor.
--- NOTE | 2022-03-11 18:04 | P.PN ---
Progress Note - Text Progress Note Date: 03/11/22 Patient presented initially in the ER with rectal bleeding. Very large amount of bright red blood per rectum. No abdominal pain. On aspirin and Plavix and Celebrex. Sent to the ICU for closer monitoring. Patient hemoglobin had dropped down to 8.5. He received a total of 4 units of PRBC. RBC scan showed activity in the left upper quadrant. Desmond 11 patient underwent a left colectomy and colocolostomy, by Dr. Laura. March 11: ICU: Up in a chair. Awake. On clear liquids. No abdominal pain. No output colostomy. Has a Rivera catheter. Mid abdominal incision with dressing. Patient received 2 units of blood yesterday. Total of 6 units of blood. Active Medications Acetaminophen (Acetaminophen Tab 325 Mg Tab) 650 mg PO Q6HR PRN PRN Reason: Mild Pain or Fever > 100.5 Alprazolam (Alprazolam 1 Mg Tab) 1 mg PO DAILY PRN PRN Reason: Anxiety Carvedilol (Carvedilol 12.5 Mg Tab) 12.5 mg PO AC-BID [facility] Last Admin: 03/11/22 17:48 Dose: 12.5 mg Heparin Sodium (Porcine) (Heparin Sodium,Porcine/Pf 5,000 Unit/0.5 Ml Syringe) 5,000 unit SQ Q8HR [facility] Last Admin: 03/11/22 17:44 Dose: 5,000 unit Hydromorphone HCl (Hydromorphone 1 Mg/Ml 1 Ml Syringe) 1 mg IVP Q3HR PRN PRN Reason: Pain Last Admin: 03/10/22 21:56 Dose: 1 mg Sodium Chloride (Saline 0.9%) 1,000 mls @ 150 mls/hr IV .Q6H40M [facility] Last Admin: 03/11/22 17:47 Dose: 150 mls/hr Piperacillin Sod/Tazobactam (Sod 3.375 gm/ Sodium Chloride) 100 mls @ 25 mls/hr IVPB Q8H [facility]; Protocol Last Admin: 03/11/22 12:36 Dose: 25 mls/hr Melatonin (Melatonin 3 Mg Tablet) 3 mg PO HS PRN PRN Reason: Insomnia Miscellaneous Information (Potassium Replacement Protocol 1 Each Misc) 1 each MISCELLANE DAILY PRN; Protocol PRN Reason: Per Protocol Naloxone HCl (Naloxone 0.4 Mg/Ml 1 Ml Vial) 0.2 mg IV Q2M PRN PRN Reason: Opioid Reversal Ondansetron HCl (Ondansetron 4 Mg/2 Ml Vial) 4 mg IVP Q8HR PRN PRN Reason: Nausea And Vomiting Last Admin: 03/10/22 21:56 Dose: 4 mg Pantoprazole Sodium (Pantoprazole 40 Mg/10 Ml Vial) 40 mg IVP BID [facility] Last Admin: 03/11/22 08:36 Dose: 40 mg Sertraline HCl (Sertraline 100 Mg Tab) 100 mg PO DAILY [facility] Last Admin: 03/11/22 08:44 Dose: 100 mg On examination: VITAL SIGNS: [98.4, 73, 18, 117/53, 97% on 2 L] GENERAL APPEARANCE: Sitting up in a recliner, comfortable. HEENT: Normal external appearance of nose and ear. Oral cavity normal EYES: Pupils equal. Conjunctiva normal. NECK: JVD not raised. Mass not palpable. RESPIRATORY: Respiratory effort normal. Lungs clear to auscultation. CARDIOVASCULAR: First and second sounds normal. No edema. ABDOMEN: Soft. Midline incision with dressing. Colostomy bag with no output Liver and spleen not palpable. Some tenderness. No mass palpable. Bowel sounds present PSYCHIATRY: Alert and oriented x3. Mood and affect normal. INVESTIGATIONS, reviewed in the clinical context: White count 6.8 hemoglobin 7 platelets 172 potassium 3.4. 28 creatinine 1.43 Admission labs: Hemoglobin 12 Assessment/plan: Acute blood loss anemia from GI bleed. From being on aspirin and Plavix Celebrex. Lower GI bleed -Status post 6 units of packed red blood cells, Left splenic flexure bleed resulting in left colectomy -March [address] Laura Hypertension -Hold triamterene/hydrochlorothiazide due to blood loss -Continue with Coreg -Follow blood pressures Acute kidney injury superimposed on Chronic kidney disease age 1: Better -Follow renal function. IV fluids. CK D stage III from nephrosclerosis -Follow renal function Primary osteoarthritis -Pain medications as needed Depression -Zoloft 100 mg a day Dyslipidemia -Statin Clear liquid diet. Activity started. Rivera catheter. Resume Lipitor. IV Zosyn
[2022-03-11] MEDS: ATORVASTATIN 80 MG TAB PO SCH (20:28)
[2022-03-12] MEDS: HEPARIN SODIUM,PORCINE/PF 5,000 UNIT/0.5 ML SYRINGE SQ SCH ×4 (03:42→23:15)
[2022-03-12] MEDS: SODIUM CHLORIDE 0.9% 1,000 ML IV SCH ×3 (06:35→12:33)
[2022-03-12] MEDS: PIPERACILLIN-TAZOBACTAM 3.375 GM in SODIUM CHLORIDE 0.9% 100 ML IVPB SCH ×3 (06:38→20:17)
[2022-03-12] MEDS: carvediloL 12.5 MG TAB PO SCH ×2 (06:38→16:36)
[2022-03-12 08:16] LABS: Anisocytosis Slight; HCT 22.7 % (34.0-46.0); HGB 7.2 gm/dL (11.4-16.0); MCH 30.2 pg (25.0-35.0); MCHC 31.7 g/dL (31.0-37.0); MCV 95.3 fL (80.0-100.0); Mean Platelet Volume 8.2; Platelet Count 202 k/uL (150-450); RBC 2.38 m/uL (3.80-5.40); WBC 7.4 k/uL (3.8-10.6)
[2022-03-12 08:30] LABS: Potassium 3.7 mmol/L (3.5-5.1)
[2022-03-12] MEDS: SERTRALINE 100 MG TAB PO SCH (08:39)
[2022-03-12] MEDS: PANTOPRAZOLE 40 MG/10 ML VIAL IVP SCH ×2 (08:39→20:18)
[2022-03-12 11:57] LABS: Glucose,Whole Blood 117 mg/dL (75-99)
--- NOTE | 2022-03-12 12:06 | P.PN ---
Subjective Progress Note Date: 03/12/22 Principal diagnosis: Lower GI bleeding, status post left colectomy and colostomy postoperative day #4 This is a 71-year-old female patient that came in to the emergency department on [place] 03/07/2022 with complaint of rectal bleeding that started this morning. Patient went to the bathroom and had a very large amount of bright red blood per rectum. Patient denied any abdominal pain, no hematemesis. She did have some nausea in the emergency department, patient has a history of hypertension, chronic kidney disease stage III, dyslipidemia, osteoarthritis. Patient takes 81 mg aspirin, Plavix, and Celebrex 200 mg every Friday on a regular basis. Denies having any previous GI bleeding. Had a colonoscopy several years ago, according to the patient was unremarkable. Admission blood work showed hemoglobin of 12.0, platelet count was 371, INR was 0.9, PT was 10.1, PTT was 24.6, electrolytes are within normal limits, BUN was 43 creatinine is 1.43. Troponin was less than 0.012, LFTs were within normal limits, lactic acid was 1.5. She was stable, patient was started on PPI, GI service has been consulted for evaluation. Patient was initially admitted to the general medical floor, however this afternoon when she got up to go to the bathroom she felt quite lightheaded, she had an urge to have a bowel movement, and she had an episode of lower GI hemorrhage, and patient was passing large amount of bright red blood per rectum. Patient became quite symptomatic, lightheaded, she was started on IV fluid bolus of 1 L, 1 unit of packed red blood cells has been ordered, repeat CBC, and patient was transferred to the intensive care unit for closer monitoring 03/08/2022, the patient is in the intensive care unit because of her massive lower GI bleed. Hemoglobin has dropped down significantly from a baseline of 1212 down to 8.5 and during the process the patient received a total of 4 units of packed RBC in the intensive care unit. Most recent hemoglobin is at 9.4. The general surgeries on the case and the patient underwent a RBC Scan and the patient was found to have activity in the left upper quadrant with swelling in the descending colon suggestive of ongoing bleeding from the different distal transverse/descending colon. As such, she is being considered for surgical intervention/possible resection. General surgeries on the case. The platelet count is at 283. The creatinine is at 1.3 with a mean of 46. Combivent testing negative. She is free of any chest pain. She is known to have multiple medical problems and comorbidities including chronic stage III kidney disease, hyperlipidemia, hypertension and she was taking Plavix on outpatient basis which was placed on hold. No nausea. No vomiting. No abdominal pain. No hematemesis. She is on IV fluids currently running at 120 mL of normal saline. She also received a liter of bolus of normal saline yesterday. She is currently nothing by mouth. 03/09/2022, the patient is in intensive care unit and she is postop. The patient was taken to the operating room with ongoing diverticular bleed and the positive RBC tagged scan. The patient underwent a left colectomy and she was given an and colostomy. Currently she is postop day #1. She was extubated in the operating room and she was brought back to the ICU. Currently she is on 2 L of oxygen by nasal cannula. Overnight, the patient was kept on IV fluids with normal saline at the rate of 130 mL an hour. Urine output was low. Fur thermore, the creatinine today is at 2.04 with a BUN of 46. The patient will be given another 2 L of normal saline bolus. Hemoglobin is at 7.6 and the patient has a white cell count of 17. She is awake and alert. No endocrine issues with pain. Abdomen is slightly tense. Bowel sounds are hypoactive and colostomy site shows no output at this point in time. Pulses are equal and symmetrical in all 4 extremities and she is arousable and she is communicating. Noted the patient is chronic stage III kidney disease. She also has history of hypertension and osteoarthritis and hyperlipidemia. She is using incentive spirometer. Currently she is on 2 L of oxygen by nasal cannula. She has Dila udid for pain control. She has compression devices to lower extremities for DVT prophylaxis. 03/10/2022, the patient is postop day #2. In general, the patient is doing well. She encounters some low urine output yesterday. She was given IV fluids. She was also given dopamine renal dose which made her quite nauseous. The medication was stopped. Currently, she is stable. She is taking some clear liquid diet. No major output in her colostomy bag at this point in time. She burps. Her nausea has settled as the patient was given Zofran and IV Protonix. She is currently on oxygen at 3 L nasal cannula. All of the blood work is from yesterday and today's blood work is still pending. Meanwhile, the blood work from yesterday showed that her white cell count is at 17 with a hemoglobin of 7.6 and a platelet count of 340. Urine is a 46 with a creatinine of 2.04. Sodium level is at 137. Serum bicarb is at 19 and anion gap is at 9. The patient's liver function tests are essentially within normal limits. Note that the patient is currently on IV fluids which is currently running at 1 20 mL an hour. She is on Dilaudid for pain control. Pain is under adequate control for now. She is also on heparin for DVT prophylaxis. Reevaluated today on 03/11/2022, patient is now postoperative day #3. Patient seems to be resting at a bedside chair, he does not seem to be in any distress, patient is on 2 L nasal cannula, 98% saturation. IV fluid is 0.9 normal saline at 1 50 mL per hour. Patient is already on clear liquid diet, and she is doing fairly well. Patient is status post left colectomy with colostomy, patient presented mostly with diverticular bleed initially. Labs today were reviewed. WBC count is 6.8 hemoglobin is 7 electrolytes are normal renal profile is improving with BUN down to 28 creatinine down to 1.43, pro-calcitonin level was 4.1. Patient remains on Zosyn. Reevaluated today on 03/12/2022, patient remains in the ICU as an overflow. Patient is doing well she is on 3 L nasal cannula, O2 sats is 98%. Global stable. No need for transfusion. Remains on IV fluid at 1 50 mL per hour. Patient denies any active bleeding. Denies any nausea vomiting abdominal pain. Colostomy is functioning. And I still plan to transfer the patient out to a surgical medical floor today. Labs were all reviewed. Renal profile is improving creatinine down to 1.29 from 2.04 initially on admission. Objective - Vital Signs Vital signs: Vital Signs Temp 97.6 F 03/12/22 08:00 Pulse 71 03/12/22 08:00 Resp 16 03/12/22 08:00 BP 108/57 03/12/22 08:00 Pulse Ox 98 03/12/22 08:00 FiO2 40 03/11/22 09:00 Intake & Output 03/11/22 03/12/22 03/12/22 18:59 06:59 18:59 Intake Total 1075 60 Output Total 625 Balance 450 60 Weight 100.4 kg Intake: IV 1050 60 0.9 kvo 60 Sodium Chloride 0.9% 1, 1050 000 ml @ 150 mls/hr IV . Q6H40M [facility] Rx#:[id number] Intake, IV Titration 25 Amount Piperacillin-Tazobactam 3 25 .375 gm In Sodium Chloride 0.9% 100 ml @ 25 mls/hr IVPB Q8H [facility] Rx#: [id number] Output: Urine 625 Other: Voiding Method Indwelling Catheter Bedside Commode Bedside Commode # Voids 1 - Exam Physical Exam: Revealed a 71-year-old female in no distress. Head: Atraumatic, normocephalic. HEENT:[Neck is supple.] [No neck masses.] [No thyromegaly.] [No JVD.] Chest: [Symmetrical chest expansion, diminished breath sounds at the bases no crackles or rhonchi or wheezes. Cardiac Exam: [Normal S1 and S2, no S3 gallop, no murmur.] Abdomen: Postsurgical, soft, nontender, colostomy is intact. Extremities: [No clubbing, no edema, no cyanosis.] Neurological Exam: [No focal neurologic deficit.] Alert and oriented 3. Psychiatric: Normal mood affect and normal mental status examination. Skin: No rashes. Musculoskeletal: No deformities and no limitation in range of motion. - Labs CBC & Chem 7: 03/12/22 07:40 03/12/22 07:40 Labs: Abnormal Lab Results - Last 24 Hours (Table) 03/12/22 03/12/22 03/12/22 Range/Units 07:40 07:40 11:56 RBC 2.38 L (3.80-5.40) m/uL Hgb 7.2 L (11.4-16.0) gm/dL Hct 22.7 L (34.0-46.0) % RDW 16.0 H (11.5-15.5) % Chloride 110 H (98-107) mmol/L Creatinine 1.29 H (0.52-1.04) mg/dL Glucose 129 H (74-99) mg/dL POC Glucose (mg/dL) 117 H (75-99) mg/dL Calcium 8.0 L (8.4-10.2) mg/dL Assessment and Plan Assessment: Impression: Acute lower GI bleeding/diverticular bleed Left colectomy with colostomy postoperative day #4 Benign essential hypertension Dyslipidemia Acute on chronic kidney injury Nephrolithiasis Degenerative joint disease Recommendation: Transfer out of the ICU once a bed is available on the medical surgical floor. Continue present supportive care measures Advanced diet as tolerated. Continue heparin subcu for DVT prophylaxis Continue GI prophylaxis. Dilaudid for pain control. Continue Zosyn. We'll continue to follow. Time with Patient: Less than 30
--- NOTE | 2022-03-12 13:02 | P.PN ---
Progress Note - Text Progress Note Date: 03/12/22 Patient's resting comfortably in her chair. She denies any significant pain. On exam vital signs are stable. Abdomen soft. Incisions clean dry tach. Colostomy dysfunction. Status post left colectomy for GI bleed. Patient appears to be stable for discharge home in 24-48 hours.
--- NOTE | 2022-03-12 13:44 | P.PN ---
Progress Note - Text Progress Note Date: 03/12/22 Patient presented initially in the ER with rectal bleeding. Very large amount of bright red blood per rectum. No abdominal pain. On aspirin and Plavix and Celebrex. Sent to the ICU for closer monitoring. Patient hemoglobin had dropped down to 8.5. He received a total of 4 units of PRBC. RBC scan showed activity in the left upper quadrant. Desmond 11 patient underwent a left colectomy and colocolostomy, by Dr. Laura. March 11: ICU: Up in a chair. Awake. On clear liquids. No abdominal pain. No output colostomy. Has a Rivera catheter. Mid abdominal incision with dressing. Patient received 2 units of blood yesterday. Total of 6 units of blood. March 12: ICU: Patient walked hallway. Colostomy bag was empty 3 days. Tolerated full liquid diet. Diet has been advanced. No pain. Active Medications Acetaminophen (Acetaminophen Tab 325 Mg Tab) 650 mg PO Q6HR PRN PRN Reason: Mild Pain or Fever > 100.5 Alprazolam (Alprazolam 1 Mg Tab) 1 mg PO DAILY PRN PRN Reason: Anxiety Atorvastatin Calcium (Atorvastatin 80 Mg Tab) 80 mg PO HS [facility] Last Admin: 03/11/22 20:28 Dose: 80 mg Carvedilol (Carvedilol 12.5 Mg Tab) 12.5 mg PO AC-BID [facility] Last Admin: 03/12/22 06:38 Dose: 12.5 mg Heparin Sodium (Porcine) (Heparin Sodium,Porcine/Pf 5,000 Unit/0.5 Ml Syringe) 5,000 unit SQ Q8HR [facility] Last Admin: 03/12/22 08:40 Dose: 5,000 unit Hydromorphone HCl (Hydromorphone 1 Mg/Ml 1 Ml Syringe) 1 mg IVP Q3HR PRN PRN Reason: Pain Last Admin: 03/10/22 21:56 Dose: 1 mg Sodium Chloride (Saline 0.9%) 1,000 mls @ 150 mls/hr IV .Q6H40M [facility] [place] Last Admin: 03/12/22 12:33 Dose: 150 mls/hr Piperacillin Sod/Tazobactam (Sod 3.375 gm/ Sodium Chloride) 100 mls @ 25 mls/hr IVPB Q8H [facility]; Protocol Last Admin: 03/12/22 12:33 Dose: 25 mls/hr Melatonin (Melatonin 3 Mg Tablet) 3 mg PO HS PRN PRN Reason: Insomnia Miscellaneous Information (Potassium Replacement Protocol 1 Each Misc) 1 each MISCELLANE DAILY PRN; Protocol PRN Reason: Per Protocol Naloxone HCl (Naloxone 0.4 Mg/Ml 1 Ml Vial) 0.2 mg IV Q2M PRN PRN Reason: Opioid Reversal Ondansetron HCl (Ondansetron 4 Mg/2 Ml Vial) 4 mg IVP Q8HR PRN PRN Reason: Nausea And Vomiting Last Admin: 03/10/22 21:56 Dose: 4 mg Pantoprazole Sodium (Pantoprazole 40 Mg/10 Ml Vial) 40 mg IVP BID [facility] Last Admin: 03/12/22 08:39 Dose: 40 mg Sertraline HCl (Sertraline 100 Mg Tab) 100 mg PO DAILY [facility] [place] Last Admin: 03/12/22 08:39 Dose: 100 mg On examination: VITAL SIGNS: 97.6, 71, 16, 108/57, 98% on 3 L GENERAL APPEARANCE: Sitting up in a recliner, comfortable. HEENT: Normal external appearance of nose and ear. Oral cavity normal EYES: Pupils equal. Conjunctiva normal. NECK: JVD not raised. Mass not palpable. RESPIRATORY: Respiratory effort normal. Lungs clear to auscultation. CARDIOVASCULAR: First and second sounds normal. No edema. ABDOMEN: Soft. Midline incision with dressing. Colostomy bag with output. Liver and spleen not palpable. Minimal tenderness. No mass palpable. Bowel sounds present PSYCHIATRY: Alert and oriented x3. Mood and affect normal. INVESTIGATIONS, reviewed in the clinical context: March 12: White count 7.4 hemoglobin 7.2 platelets 202 potassium 3.7 creatinine 1.29 White count 6.8 hemoglobin 7 platelets 172 potassium 3.4. 28 creatinine 1.43 Admission labs: Hemoglobin 12 Assessment/plan: Acute blood loss anemia from GI bleed. From being on aspirin and Plavix Celebrex. Lower GI bleed -Status post 6 units of packed red blood cells, Left splenic flexure bleed from diverticulosis resulting in left colectomy -March [address] Laura Hypertension -Hold triamterene/hydrochlorothiazide due to blood loss -Continue with Coreg 12.5 mg by mouth twice a day -Follow blood pressures Acute kidney injury superimposed on Chronic kidney disease age 1: Better -Follow renal function. IV fluids. CK D stage III from nephrosclerosis -Follow renal function Primary osteoarthritis -Pain medications as needed Depression -Zoloft 100 mg a day Dyslipidemia -Statin Advanced to regular diet.. Colostomy bag functioning well. Activity improved. . IV Zosyn. DC IV fluids
[2022-03-12] MEDS: ATORVASTATIN 80 MG TAB PO SCH (20:18)
[2022-03-13] MEDS: PIPERACILLIN-TAZOBACTAM 3.375 GM in SODIUM CHLORIDE 0.9% 100 ML IVPB SCH (04:15)
[2022-03-13] MEDS: carvediloL 12.5 MG TAB PO SCH (06:31)
[2022-03-13] MEDS: SERTRALINE 100 MG TAB PO SCH (08:51)
[2022-03-13] MEDS: HEPARIN SODIUM,PORCINE/PF 5,000 UNIT/0.5 ML SYRINGE SQ SCH (08:51)
[2022-03-13] MEDS: PANTOPRAZOLE 40 MG/10 ML VIAL IVP SCH (08:51)
[2022-03-13] MEDS ORDERED: FUROSEMIDE 10 MG/ML 4 ML VIAL IV STA (09:24)
[2022-03-13 09:28] VITALS: BP 150/82; PULSE 84; RESP 18; TEMP 98.5
--- NOTE | 2022-03-13 11:17 | P.PN ---
Subjective Progress Note Date: 03/13/22 CHIEF COMPLAINT: GI bleed HISTORY OF PRESENT ILLNESS: Patient is status post left colectomy with colostomy placement. Patient denies any abdominal pain. Denies any nausea or vomiting. Her ostomy is functioning. She is tolerating diet. Afebrile. She has been up and ambulating. No new labs for today. Hemoglobin stable at 7.2 yesterday PHYSICAL EXAM: VITAL SIGNS: Reviewed. GENERAL: Well-developed in no acute distress. HEENT: No sclera icterus. Extraocular movements grossly intact. Moist buccal mucosa. Head is atraumatic, normocephalic. ABDOMEN: Soft. Nondistended. Incision site some minimal serous drainage noted at the distal aspect of the bandage. No drainage able to be expressed from the incision. Otherwise incision looks clean dry and intact. Ostomy with stool present. NEUROLOGIC: Alert and oriented. Cranial nerves II through XII grossly intact. ASSESSMENT: 1. Massive Left colon bleed secondary to a diverticular bleed. Status post left colectomy with end colostomy placement PLAN: -Patient can be discharge from surgical standpoint -Follow up with Dr. gonzales in 1 week -Continue Tylenol as needed for pain Physician Pointer Machine Operator note has been reviewed by physician. Signing provider agrees with the documented findings, assessment, and plan of care. Objective - Vital Signs Vital signs: Vital Signs Temp 98.5 F 03/13/22 08:00 Pulse 84 03/13/22 08:00 Resp 18 03/13/22 08:00 BP 150/82 03/13/22 08:00 Pulse Ox 95 03/13/22 08:00 FiO2 40 03/11/22 09:00 Intake & Output 03/12/22 03/13/22 03/13/22 18:59 06:59 18:59 Intake Total 1200 250 200 Output Total 200 Balance 1200 250 0 Weight 100.8 kg Intake: IV 1200 250 0.9 kvo 1200 50 Piperacillin-Tazobactam 3 200 .375 gm In Sodium Chloride 0.9% 100 ml @ 25 mls/hr IVPB Q12HR [facility] Rx #:[id number] Oral 200 Output: Stool 200 Other: Voiding Method Bedside Commode Toilet Toilet # Voids 4 3 1 # Bowel Movements 1 1 - Labs CBC & Chem 7: 03/12/22 07:40 03/12/22 07:40 Labs: Abnormal Lab Results - Last 24 Hours (Table) 03/12/22 Range/Units 11:56 POC Glucose (mg/dL) 117 H (75-99) mg/dL
--- NOTE | 2022-03-13 11:25 | P.PN ---
Subjective Progress Note Date: 03/13/22 Principal diagnosis: Lower GI bleeding, status post left colectomy and colostomy postoperative day #5 This is a 71-year-old female patient that came in to the emergency department on [place] 03/07/2022 with complaint of rectal bleeding that started this morning. Patient went to the bathroom and had a very large amount of bright red blood per rectum. Patient denied any abdominal pain, no hematemesis. She did have some nausea in the emergency department, patient has a history of hypertension, chronic kidney disease stage III, dyslipidemia, osteoarthritis. Patient takes 81 mg aspirin, Plavix, and Celebrex 200 mg every Friday on a regular basis. Denies having any previous GI bleeding. Had a colonoscopy several years ago, according to the patient was unremarkable. Admission blood work showed hemoglobin of 12.0, platelet count was 371, INR was 0.9, PT was 10.1, PTT was 24.6, electrolytes are within normal limits, BUN was 43 creatinine is 1.43. Troponin was less than 0.012, LFTs were within normal limits, lactic acid was 1.5. She was stable, patient was started on PPI, GI service has been consulted for evaluation. Patient was initially admitted to the general medical floor, however this afternoon when she got up to go to the bathroom she felt quite lightheaded, she had an urge to have a bowel movement, and she had an episode of lower GI hemorrhage, and patient was passing large amount of bright red blood per rectum. Patient became quite symptomatic, lightheaded, she was started on IV fluid bolus of 1 L, 1 unit of packed red blood cells has been ordered, repeat CBC, and patient was transferred to the intensive care unit for closer monitoring 03/08/2022, the patient is in the intensive care unit because of her massive lower GI bleed. Hemoglobin has dropped down significantly from a baseline of 1212 down to 8.5 and during the process the patient received a total of 4 units of packed RBC in the intensive care unit. Most recent hemoglobin is at 9.4. The general surgeries on the case and the patient underwent a RBC Scan and the patient was found to have activity in the left upper quadrant with swelling in the descending colon suggestive of ongoing bleeding from the different distal transverse/descending colon. As such, she is being considered for surgical intervention/possible resection. General surgeries on the case. The platelet count is at 283. The creatinine is at 1.3 with a mean of 46. Combivent testing negative. She is free of any chest pain. She is known to have multiple medical problems and comorbidities including chronic stage III kidney disease, hyperlipidemia, hypertension and she was taking Plavix on outpatient basis which was placed on hold. No nausea. No vomiting. No abdominal pain. No hematemesis. She is on IV fluids currently running at 120 mL of normal saline. She also received a liter of bolus of normal saline yesterday. She is currently nothing by mouth. 03/09/2022, the patient is in intensive care unit and she is postop. The patient was taken to the operating room with ongoing diverticular bleed and the positive RBC tagged scan. The patient underwent a left colectomy and she was given an and colostomy. Currently she is postop day #1. She was extubated in the operating room and she was brought back to the ICU. Currently she is on 2 L of oxygen by nasal cannula. Overnight, the patient was kept on IV fluids with normal saline at the rate of 130 mL an hour. Urine output was low. Fur thermore, the creatinine today is at 2.04 with a BUN of 46. The patient will be given another 2 L of normal saline bolus. Hemoglobin is at 7.6 and the patient has a white cell count of 17. She is awake and alert. No endocrine issues with pain. Abdomen is slightly tense. Bowel sounds are hypoactive and colostomy site shows no output at this point in time. Pulses are equal and symmetrical in all 4 extremities and she is arousable and she is communicating. Noted the patient is chronic stage III kidney disease. She also has history of hypertension and osteoarthritis and hyperlipidemia. She is using incentive spirometer. Currently she is on 2 L of oxygen by nasal cannula. She has Dila udid for pain control. She has compression devices to lower extremities for DVT prophylaxis. 03/10/2022, the patient is postop day #2. In general, the patient is doing well. She encounters some low urine output yesterday. She was given IV fluids. She was also given dopamine renal dose which made her quite nauseous. The medication was stopped. Currently, she is stable. She is taking some clear liquid diet. No major output in her colostomy bag at this point in time. She burps. Her nausea has settled as the patient was given Zofran and IV Protonix. She is currently on oxygen at 3 L nasal cannula. All of the blood work is from yesterday and today's blood work is still pending. Meanwhile, the blood work from yesterday showed that her white cell count is at 17 with a hemoglobin of 7.6 and a platelet count of 340. Urine is a 46 with a creatinine of 2.04. Sodium level is at 137. Serum bicarb is at 19 and anion gap is at 9. The patient's liver function tests are essentially within normal limits. Note that the patient is currently on IV fluids which is currently running at 1 20 mL an hour. She is on Dilaudid for pain control. Pain is under adequate control for now. She is also on heparin for DVT prophylaxis. Reevaluated today on 03/11/2022, patient is now postoperative day #3. Patient seems to be resting at a bedside chair, he does not seem to be in any distress, patient is on 2 L nasal cannula, 98% saturation. IV fluid is 0.9 normal saline at 1 50 mL per hour. Patient is already on clear liquid diet, and she is doing fairly well. Patient is status post left colectomy with colostomy, patient presented mostly with diverticular bleed initially. Labs today were reviewed. WBC count is 6.8 hemoglobin is 7 electrolytes are normal renal profile is improving with BUN down to 28 creatinine down to 1.43, pro-calcitonin level was 4.1. Patient remains on Zosyn. Reevaluated today on 03/12/2022, patient remains in the ICU as an overflow. Patient is doing well she is on 3 L nasal cannula, O2 sats is 98%. Global stable. No need for transfusion. Remains on IV fluid at 1 50 mL per hour. Patient denies any active bleeding. Denies any nausea vomiting abdominal pain. Colostomy is functioning. And I still plan to transfer the patient out to a surgical medical floor today. Labs were all reviewed. Renal profile is improving creatinine down to 1.29 from 2.04 initially on admission. Reevaluated today on 03/13/22, Reevaluated today on 03/13/22, patient remains as an overflow in the ICU, she is now on room air, patient is doing great. Complaining of swelling in lower extremities. Patient is eating and tolerating a regular diet quite well. No na usea no vomiting Objective - Vital Signs Vital signs: Vital Signs Temp 98.5 F 03/13/22 08:00 Pulse 84 03/13/22 08:00 Resp 18 03/13/22 08:00 BP 150/82 03/13/22 08:00 Pulse Ox 95 03/13/22 08:00 FiO2 40 03/11/22 09:00 Intake & Output 03/12/22 03/13/22 03/13/22 18:59 06:59 18:59 Intake Total 1200 250 200 Output Total 200 Balance 1200 250 0 Weight 100.8 kg Intake: IV 1200 250 0.9 kvo 1200 50 Piperacillin-Tazobactam 3 200 .375 gm In Sodium Chloride 0.9% 100 ml @ 25 mls/hr IVPB Q12HR [facility] Rx #:[id number] Oral 200 Output: Stool 200 Other: Voiding Method Bedside Commode Toilet Toilet # Voids 4 3 1 # Bowel Movements 1 1 - Exam Physical Exam: Revealed a 71-year-old female in no distress. Head: Atraumatic, normocephalic. HEENT:[Neck is supple.] [No neck masses.] [No thyromegaly.] [No JVD.] Chest: [Symmetrical chest expansion, clear bilaterally no rhonchi and no wheezes Cardiac Exam: [Normal S1 and S2, no S3 gallop, no murmur.] Abdomen: Postsurgical, soft, nontender, colostomy is intact. Extremities: [No clubbing, 1+ bipedal edema no cyanosis.] Neurological Exam: [No focal neurologic deficit.] Alert and oriented 3. Psychiatric: Normal mood affect and normal mental status examination. Skin: No rashes. Musculoskeletal: No deformities and no limitation in range of motion. - Labs CBC & Chem 7: 03/12/22 07:40 03/12/22 07:40 Labs: Abnormal Lab Results - Last 24 Hours (Table) 03/12/22 Range/Units 11:56 POC Glucose (mg/dL) 117 H (75-99) mg/dL Assessment and Plan Assessment: Impression: Acute lower GI bleeding/diverticular bleed Left colectomy with colostomy postoperative day #5 Benign essential hypertension Dyslipidemia Acute on chronic kidney injury Nephrolithiasis Degenerative joint disease Recommendation: Continue present supportive care measures Continue heparin subcu for DVT prophylaxis Continue GI prophylaxis. We'll clear the patient for discharge planning if cleared by the admitting physician and other consultants Time with Patient: Less than 30
[2022-03-13 12:07] VITALS: BMI 42.0
--- NOTE | 2022-03-13 14:26 | P.DS ---
Providers Date of admission: 03/07/22 18:37 Expected date of discharge: 03/13/22 Attending physician: Daren Contreras Consults: 03/07/22 16:21 Consult Physician Routine Consulting Provider: Lee Mackenzie Consult Reason/Comments: icu admission Do you want consulting provider notified?: Already Contacted 03/08/22 09:03 Consult Physician Routine Consulting Provider: Jean Claude Laura Consult Reason/Comments: aucte GI bleed Do you want consulting provider notified?: Already Contacted Primary care physician: Sonny Daley [facility] Course: Patient presented initially in the ER with rectal bleeding. Very large amount of bright red blood per rectum. No abdominal pain. On aspirin and Plavix and Celebrex. Sent to the ICU for closer monitoring. Patient hemoglobin had drop ped down to 8.5. He received a total of 4 units of PRBC. RBC scan showed activity in the left upper quadrant. patient underwent a left colectomy and colocolostomy, by Dr. Laura. March 11: ICU: Up in a chair. Awake. On clear liquids. No abdominal pain. No output colostomy. Has a Rivera catheter. Mid abdominal incision with dressing. Patient received 2 units of blood yesterday. Total of 6 units of blood. March 12: ICU: Patient walked hallway. Colostomy bag was empty 3 days. Tolerated full liquid diet. Diet has been advanced. No pain. March 13: ICU: Doing well. Tolerating regular diet. Colostomy bag is working well. No pain. No antibiotics per Dr. Laura. Hold off any antiplatelet agents. Patient will be with her son. Discussion and discharge planning more than 35 minutes On examination: VITAL SIGNS: 98.5, 84, 18, 150/82, 95% room air GENERAL APPEARANCE: Sitting up in a recliner, comfortable. HEENT: Normal external appearance of nose and ear. Oral cavity normal EYES: Pupils equal. Conjunctiva normal. NECK: JVD not raised. Mass not palpable. RESPIRATORY: Respiratory effort normal. Lungs clear to auscultation. CARDIOVASCULAR: First and second sounds normal. No edema. ABDOMEN: Soft. Midline incision with dressing. Colostomy bag with output. Liver and spleen not palpable. Minimal tenderness. No mass palpable. Bowel sounds present PSYCHIATRY: Alert and oriented x3. Mood and affect normal. INVESTIGATIONS, reviewed in the clinical context: March 12: White count 7.4 hemoglobin 7.2 platelets 202 potassium 3.7 creatinine 1.29 White count 6.8 hemoglobin 7 platelets 172 potassium 3.4. 28 creatinine 1.43 Admission labs: Hemoglobin 12 Assessment/plan: Acute blood loss anemia from GI bleed. From being on aspirin and Plavix Celebrex. Lower GI bleed -Status post 6 units of packed red blood cells, Left splenic flexure bleed from diverticulosis resulting in left colectomy -March [address] Laura Hypertension -Stop triamterene/hydrochlorothiazide . Add chlorthalidone 25 mg a day -Continue with Coreg 12.5 mg by mouth twice a day -Follow blood pressures Acute kidney injury superimposed on Chronic kidney disease age 1: Better -Follow renal function. IV fluids. CK D stage III from nephrosclerosis -Follow renal function Primary osteoarthritis -Pain medications as needed Depression -Zoloft 100 mg a day Dyslipidemia -Statin Disposition: Home Labs: CBC BMP: 5 days Plan - Discharge Summary Discharge Rx Participant: No New Discharge Prescriptions: New Chlorthalidone [Hygroton] 25 mg PO DAILY #30 tablet Acetaminophen Tab [Tylenol] 650 mg PO Q6HR PRN tab PRN Reason: Mild Pain Or Fever > 100.5 Famotidine [Pepcid] 20 mg PO BID #60 tablet Continue Cholecalciferol (Vitamin D3) [Vitamin D3 (3000 Iu)] 75 mcg PO HS Atorvastatin Calcium [Lipitor] 80 mg PO HS Acetaminophen [Tylenol Arthritis] 1,300 mg PO QAM Sertraline HCl [Zoloft] 100 mg PO DAILY Ascorbic Acid [Vitamin C] 1,000 mg PO DAILY Vitamin E (Dl,Tocopheryl Acet) [Vitamin E (400 Iu = 180 mg)] 400 unit PO DAILY Magnesium Oxide [Mag-Ox] 400 mg PO DAILY Carvedilol [Coreg] 12.5 mg PO BID ALPRAZolam [Xanax] 1 mg PO DAILY PRN PRN Reason: Anxiety Discontinued Triamterene/Hydrochlorothiazid [Triamterene-Hctz 37.5-25 mg Tb] 1 tab PO DAILY Celecoxib [CeleBREX] 200 mg PO WE Aspirin EC [Ecotrin Low Dose] 81 mg PO HS Clopidogrel Bisulfate [Clopidogrel] 75 mg PO DAILY Discharge Medication List ALPRAZolam [Xanax] 1 mg PO DAILY PRN 03/07/22 [History] Acetaminophen [Tylenol Arthritis] 1,300 mg PO QAM 03/07/22 [History] Ascorbic Acid [Vitamin C] 1,000 mg PO DAILY 03/07/22 [History] Atorvastatin Calcium [Lipitor] 80 mg PO HS 03/07/22 [History] Carvedilol [Coreg] 12.5 mg PO BID 03/07/22 [History] Cholecalciferol (Vitamin D3) [Vitamin D3 (3000 Iu)] 75 mcg PO HS 03/07/22 [History] Magnesium Oxide [Mag-Ox] 400 mg PO DAILY 03/07/22 [History] Sertraline HCl [Zoloft] 100 mg PO DAILY 03/07/22 [History] Vitamin E (Dl,Tocopheryl Acet) [Vitamin E (400 Iu = 180 mg)] 400 unit PO DAILY 03/07/22 [History] Acetaminophen Tab [Tylenol] 650 mg PO Q6HR PRN tab 03/13/22 [Rx] Chlorthalidone [Hygroton] 25 mg PO DAILY #30 tablet 03/13/22 [Rx] Famotidine [Pepcid] 20 mg PO BID #60 tablet 03/13/22 [Rx] Follow up Appointment(s)/Referral(s): Sonny Daley MD [Primary Care Provider] - 1-2 days Jean Claude Laura MD [STAFF PHYSICIAN] - 1 Week Patient Instructions/Handouts: Gastrointestinal Bleeding (DC), Colostomy Care (GEN), Staple Care (DC), Laparoscopic Bowel Resection (DC) Activity/Diet/Wound Care/Special Instructions: Colostomy care Recommendations for transition after hospital: Last Pouching system change: 03.13.2022 Mrs Terrazas will receive the following osotmy products on discharge from the hosp ital: Convatec one piece pouch with filter #[id number] (3) Ostomy powder (1) No sting prep pads (10) Shiva seals (3) Change the entire pouch every 3 -5 days unless otherwise directed by the surgeon or Home care Empty the entire pouching system when it is 1/2 to 1/3 full No lifting over 10 pounds Shower daily. No soaking or tub baths for 2 weeks Very light activity until you are reevaluated at your follow up appointment with your surgeon Discharge Disposition: HOME SELF-CARE
== END 2022-03-13 14:23 | disposition home or self-care (01) | DRG 329 ==
LOC: EC 07:49 → 6NMEDSUR 09:28 → 2SICU 16:30 → OBSVTOIN 18:37
PROVIDERS: ADMIT Hospitalist; ATTEND Hospitalist
PROC: 30233N1 Transfusion of Nonautologous Red Blood Cells into Peripheral Vein, Percutaneous Approach (ICD-10-PCS; 2022-03-07)
PROC: 0DJD8ZZ Inspection of Lower Intestinal Tract, Via Natural or Artificial Opening Endoscopic (ICD-10-PCS; 2022-03-08)
PROC: 0DTF0ZZ Resection of Right Large Intestine, Open Approach (ICD-10-PCS; principal; 2022-03-08 10:15)
PROC: 0D1E0Z4 Bypass Large Intestine to Cutaneous, Open Approach (ICD-10-PCS; principal; 2022-03-08 10:15)
DX: K57.31 Diverticulosis of large intestine without perforation or abscess with bleeding (principal); J96.01 Acute respiratory failure with hypoxia; K94.03 Colostomy malfunction; N17.9 Acute kidney failure, unspecified; D62 Acute posthemorrhagic anemia; K64.4 Residual hemorrhoidal skin tags; M19.91 Primary osteoarthritis, unspecified site; N18.30 Chronic kidney disease, stage 3 unspecified; N20.0 Calculus of kidney; Z87.442 Personal history of urinary calculi; D69.1 Qualitative platelet defects; E78.5 Hyperlipidemia, unspecified; F32.A Depression, unspecified; F41.9 Anxiety disorder, unspecified; G47.00 Insomnia, unspecified; I12.9 Hypertensive chronic kidney disease with stage 1 through stage 4 chronic kidney disease, or unspecified chronic kidney disease; T39.015A Adverse effect of aspirin, initial encounter; Z79.02 Long term (current) use of antithrombotics/antiplatelets; Z79.82 Long term (current) use of aspirin; Z79.899 Other long term (current) drug therapy; Z90.49 Acquired absence of other specified parts of digestive tract; Z79.1 Long term (current) use of non-steroidal anti-inflammatories (NSAID); Z87.11 Personal history of peptic ulcer disease
CPT/HCPCS: 36415; 78278; 80048; 80053; 83605; 83735; 84100; 84145; 84484; 85025; 85027; 85610; 85730; 86850; 86900; 86901; 86920; 87635; 88307

== ENCOUNTER → 2022-05-28 | Outpatient (CLI) | payer MEDICARE, BC ==
[2022-05-29 01:21] LABS: Anion Gap 11.4 mmol/L (10.00-18.00); Carbon Dioxide 27.6 mmol/L (20.0-27.5)
[2022-05-29 01:22] LABS: Basophils # (A) 0.04 X 10*3/uL (0.00-0.10); Basophils % (A) 0.5 %; Eosinophils # (A) 0.37 X 10*3/uL (0.04-0.35); Eosinophils % (A) 4.4 %; HGB 12.5 g/dL (12.0-15.0); Immature Grans, Automated 0.1 %; Lymphocytes # (A) 1.83 X 10*3/uL (0.90-5.00); Lymphocytes % (A) 21.8 %; MCHC 32.1 g/dL (32.0-37.0); MCV 93.8 fL (80.0-97.0); Mean Platelet Volume 10.9 fL (9.5-12.2); Monocytes # (A) 0.59 X 10*3/uL (0.20-1.00); NRBC Per 100 WBC 0 /100 WBCS (0.0-0.0); Neutrophils # (A) 5.56 X 10*3/uL (1.80-7.70); Neutrophils % (A) 66.2 %; Platelet Count 367 X 10*3/uL (140-440); RBC 4.16 X 10*6/uL (4.10-5.20); RDW 13.9 % (11.5-14.5)
== END | disposition home or self-care (01) ==
LOC: LABPAT 15:31
PROVIDERS: ATTEND Surgery
DX: Z01.812 Encounter for preprocedural laboratory examination (principal); K57.30 Diverticulosis of large intestine without perforation or abscess without bleeding
CPT/HCPCS: 80051; 85025; 93005

== ENCOUNTER 2022-06-06 09:18 | Day surgery (SDC) | payer MEDICARE, BC ==
[2022-06-05 10:28] VITALS: BMI 32.9
[~2022-06-06 09:18] MED LIST: LACTATED RINGERS 1,000 ML IV SCH; LIDOCAINE 1% (10MG/ML) FOR IV START INTRADERMA PRN
[2022-06-06 09:53] VITALS: TEMP 97
--- NOTE | 2022-06-06 10:57 | P.GSHP ---
History of Present Illness H&P Date: 06/06/22 Chief Complaint: History of diverticular bleed This a 71-year-old female who is appears history of heart procedure for diverticular bleeding. Patient resents today for colonoscopy. Past Medical History Past Medical History: GERD/Reflux, Hyperlipidemia, Hypertension, Renal Disease Additional Past Medical History / Comment(s): hx kidney stones, diverticulitis, COVID 08/2021 History of Any Multi-Drug Resistant Organisms: None Reported Past Surgical History: Bowel Resection, Cholecystectomy Additional Past Surgical History / Comment(s): bowel resection with colostomy 03/07/22, Past Anesthesia/Blood Transfusion Reactions: No Reported Reaction Smoking Status: Never smoker - Past Family History Mother Family Medical History: No Reported History Medications and Allergies Home Medications Medication Instructions Recorded Confirmed Type ALPRAZolam [Xanax] 0.5 mg PO HS PRN 03/07/22 06/06/22 History Ascorbic Acid [Vitamin C] 1,000 mg PO DAILY 03/07/22 06/06/22 History Atorvastatin Calcium [Lipitor] 80 mg PO HS 03/07/22 06/06/22 History Magnesium Oxide [Mag-Ox] 400 mg PO DAILY 03/07/22 06/06/22 History Sertraline HCl [Zoloft] 100 mg PO DAILY 03/07/22 06/06/22 History Vitamin E (Dl,Tocopheryl Acet) 400 unit PO DAILY 03/07/22 06/06/22 History [Vitamin E (400 Iu = 180 mg)] Acetaminophen [Tylenol Arthritis] 1,300 mg PO DAILY 06/05/22 06/06/22 History Cholecalciferol [Vitamin D3 (25 50 mcg PO DAILY 06/05/22 06/06/22 History Mcg = 1000 Iu)] Cyanocobalamin (Vitamin B-12) 250 mcg PO DAILY 06/05/22 06/06/22 History [Vitamin B-12] Niacin 500 mg PO DAILY 06/05/22 06/06/22 History Allergies Allergy/AdvReac Type Severity Reaction Status Date / Time No Known Allergies Allergy Verified 06/05/22 10:49 Surgical - Exam Vital Signs Temp Pulse Resp BP Pulse Ox 97.0 F L 76 15 146/79 97 06/06/22 09:51 06/06/22 09:51 06/06/22 09:51 06/06/22 09:51 06/06/22 09:51 - General well developed, well nourished, no distress - Eyes PERRL - ENT normal pinna - Neck no masses - Respiratory normal expansion - Cardiovascular Rhythm: regular - Abdomen Colostomy and left upper quadrant Abdomen: soft, non tender Assessment and Plan Assessment: History of diverticular bleeding. Patient will undergo colonoscopy. Patient has upcoming reversal colostomy
[2022-06-06] MEDS ORDERED: PROPOFOL 10 MG/ML 20 ML VIAL IV ONE (10:59)
--- NOTE | 2022-06-06 11:13 | P.OP ---
Date of Procedure: 06/06/22 Preoperative Diagnosis: History of diverticular bleeding Postoperative Diagnosis: Diverticulosis Procedure(s) Performed: Colonoscopy Anesthesia: MAC Surgeon: Jean Claude Laura Pathology: none sent Condition: stable Disposition: PACU Description of Procedure: The patient's placed on the endoscopy table in the lateral position. She received IV sedation. Digital rectal exam was performed. This revealed no abnormalities. The flexible colonoscope was then placed patient anus and into the rectal stump. The rectal stump measured approximately 15 cm. The scope was withdrawn. The patient was rotated on her back. The colonoscope was then placed through the colostomy. The colonoscope was then advanced through the colon. The ileocecal valve visualized. Cecum and ascending colon appeared normal. The in the transverse colon was a few scattered diverticula. Scope withdrawn for patient.
[2022-06-06 11:37] VITALS: BP 148/80; PULSE 71; RESP 16
== END 2022-06-06 11:49 | disposition home or self-care (01) ==
LOC: ORWHC2ENDO 09:18
PROVIDERS: ATTEND Surgery
DX: K57.30 Diverticulosis of large intestine without perforation or abscess without bleeding (principal); K21.9 Gastro-esophageal reflux disease without esophagitis; E78.5 Hyperlipidemia, unspecified; I12.9 Hypertensive chronic kidney disease with stage 1 through stage 4 chronic kidney disease, or unspecified chronic kidney disease; N18.9 Chronic kidney disease, unspecified; F32.A Depression, unspecified; Z86.16 Personal history of COVID-19; Z87.19 Personal history of other diseases of the digestive system; Z93.3 Colostomy status; Z90.89 Acquired absence of other organs; Z79.890 Hormone replacement therapy
CPT/HCPCS: 44388; J2704; G0463; 72100; 72170; 86850; 86900; 86901; 99204

== ENCOUNTER 2022-06-07 08:51 | Inpatient (IN) | payer MEDICARE, BC ==
[~2022-06-07 08:51] MED LIST changes: +ACETAMINOPHEN TAB 500 MG TAB PO PRN; +DEXAMETHASONE SOD PHOSPHATE 4 MG/ML 1 ML VIAL IV ONE; +HEPARIN SODIUM,PORCINE/PF 5,000 UNIT/0.5 ML SYRINGE SQ PRN; +HYDROmorphone 0.5 MG/0.5 ML SYRINGE IVP PRN; -LACTATED RINGERS 1,000 ML IV SCH; -LIDOCAINE 1% (10MG/ML) FOR IV START INTRADERMA PRN; +MIDAZOLAM 2 MG/2 ML VIAL IV PRN; +ONDANSETRON 4 MG/2 ML VIAL IVP ONE; +metroNIDAZOLE-NS PMX 500 MG in SALINE 1 100ML.BAG IVPB PRN
[2022-06-07] MEDS: LACTATED RINGERS 1,000 ML IV SCH (09:44)
[2022-06-07] MEDS ORDERED: ONDANSETRON 4 MG/2 ML VIAL IVP ONE (09:49)
[2022-06-07] MEDS ORDERED: DEXAMETHASONE SOD PHOSPHATE 4 MG/ML 1 ML VIAL IVP ONE (09:50)
[2022-06-07] MEDS ORDERED: MIDAZOLAM 2 MG/2 ML VIAL IVP ONE (09:56)
[2022-06-07] MEDS ORDERED: fentaNYL (PF) 50 MCG/ML 2 ML AMP IVP ONE (09:56)
[2022-06-07] MEDS ORDERED: ACETAMINOPHEN TAB 500 MG TAB ONE (10:14)
[2022-06-07] MEDS ORDERED: ALVIMOPAN 12 MG CAPSULE PO ONE (10:38)
--- NOTE | 2022-06-07 10:40 | P.ANPRN ---
Procedure Note - Anesthesia - Epidural/Spinal Epidural Time Out Performed: Yes Date of Procedure: 06/07/22 Procedure Start Time: 09:55 Procedure Stop Time: 10:10 Location of Patient: PreOp Indication: Acute Post-Operative Pain Sedation Type: Sedate with meaningful contact maintained Preparation: Sterile Prep Position: Sitting Catheter: Indwelling Needle Guage: 18 Injectate: Test Dose Lidocaine1.5% w/1:200,000 epi Blood Aspirated: No Pain Paresthesia on Injection Noted: No Events: Uneventful and Well Tolerated
--- NOTE | 2022-06-07 11:39 | P.GSHP ---
History of Present Illness H&P Date: 06/07/22 Chief Complaint: History of bleeding diverticulitis Is a 71-year-old female who underwent previous left colectomy for diverticular bleeding. Patient presents today for reversal colostomy. Past Medical History Past Medical History: GERD/Reflux, Hyperlipidemia, Hypertension, Renal Disease Additional Past Medical History / Comment(s): hx kidney stones, diverticulitis, COVID 08/2021 History of Any Multi-Drug Resistant Organisms: None Reported Past Surgical History: Bowel Resection, Cholecystectomy Additional Past Surgical History / Comment(s): bowel resection with colostomy 03/07/22, Past Anesthesia/Blood Transfusion Reactions: No Reported Reaction Smoking Status: Never smoker - Past Family History Mother Family Medical History: No Reported History Medications and Allergies Home Medications Medication Instructions Recorded Confirmed Type ALPRAZolam [Xanax] 0.5 mg PO HS PRN 03/07/22 06/07/22 History Ascorbic Acid [Vitamin C] 1,000 mg PO DAILY 03/07/22 06/07/22 History Atorvastatin Calcium [Lipitor] 80 mg PO HS 03/07/22 06/07/22 History Magnesium Oxide [Mag-Ox] 400 mg PO DAILY 03/07/22 06/07/22 History Sertraline HCl [Zoloft] 100 mg PO DAILY 03/07/22 06/07/22 History Vitamin E (Dl,Tocopheryl Acet) 400 unit PO DAILY 03/07/22 06/06/22 History [Vitamin E (400 Iu = 180 mg)] Acetaminophen [Tylenol Arthritis] 1,300 mg PO DAILY 06/05/22 06/07/22 History Cholecalciferol [Vitamin D3 (25 50 mcg PO DAILY 06/05/22 06/07/22 History Mcg = 1000 Iu)] Cyanocobalamin (Vitamin B-12) 250 mcg PO DAILY 06/05/22 06/07/22 History [Vitamin B-12] Niacin 500 mg PO DAILY 06/05/22 06/07/22 History Allergies Allergy/AdvReac Type Severity Reaction Status Date / Time No Known Allergies Allergy Verified 06/05/22 10:49 Surgical - Exam Vital Signs Temp Pulse Resp BP Pulse Ox 97.0 F L 82 16 158/75 100 06/07/22 09:18 06/07/22 09:18 06/07/22 09:18 06/07/22 09:18 06/07/22 09:18 - General well developed, well nourished, no distress - Eyes PERRL - ENT normal pinna - Neck no masses - Respiratory normal expansion - Cardiovascular Rhythm: regular - Abdomen Abdomen: soft, non tender Assessment and Plan Assessment: History of colostomy, left colectomy with diverticular bleed. Patient undergo reversal colostomy.
[2022-06-07] MEDS ORDERED: NEOSTIGMINE 1 MG/ML 10 ML VIAL ONE (11:53)
[2022-06-07] MEDS ORDERED: PROPOFOL 10 MG/ML 20 ML VIAL IV ONE (11:53)
[2022-06-07] MEDS ORDERED: SUCCINYLCHOLINE CHLORIDE 200 MG/10 ML VIAL IV ONE (11:53)
[2022-06-07] MEDS ORDERED: GLYCOPYRROLATE 0.2 MG/ML 2 ML VIAL ONE (11:53)
[2022-06-07] MEDS ORDERED: fentaNYL (PF) 50 MCG/ML 50 ML VIAL ONE (11:53)
[2022-06-07] MEDS ORDERED: LIDOCAINE 2% INJ 20 MG/ML (2 ML VIAL) ONE (11:53)
[2022-06-07] MEDS ORDERED: MIDAZOLAM 2 MG/2 ML VIAL ONE (11:53)
[2022-06-07] MEDS ORDERED: MORPHINE SULFATE (PF) 0.3 MG/0.3 ML SYR ONE (11:53)
[2022-06-07] MEDS ORDERED: ROCURONIUM 10 MG/ML (5 ML VIAL) IV ONE (11:53)
[2022-06-07] MEDS ORDERED: NALOXONE 0.4 MG/ML 1 ML VIAL IV PRN (12:29)
[2022-06-07] MEDS ORDERED: LACTATED RINGERS 1,000 ML IV ONE (13:25)
--- NOTE | 2022-06-07 13:50 | P.OP ---
Date of Procedure: 06/07/22 Preoperative Diagnosis: History of diverticular bleed Postoperative Diagnosis: History of diverticular bleed Procedure(s) Performed: Reversal of colostomy Partial omentectomy Anesthesia: CELIA Surgeon: Jean Claude Laura Estimated Blood Loss (ml): 50 Pathology: other (Omentum, colon) Condition: stable Disposition: PACU Description of Procedure: The patient's placed on the operating table in the supine position. She received general endotracheal tube anesthesia. Her abdomen was prepped and draped usual fashion. The patient had been placed in dorsal lithotomy position. The patient's colostomy is present in the right epigastric area. The skin was incised in midline. Using left cautery subcutaneous tissue divided. The fascia was divided. The adhesions to the fascia were lysed with sharp dissection. At this point the colostomy site was examined. The colon was transected at the fascial level using the JAYME stapler. The colon was dissected off the stomach. And then a suitable length of colon was found to reach the pelvis. The distal colon was opened and the anvil for the 25 mm EEA stapler was placed into the colon. And then the colon was transected with a GI stapler and then the spike for the a.m. was driven through the staple line. The distal colon remnant was then removed by dividing the mesentery the bowel. Specimens of pathology. At this point the neurosurgical physician assistant placed the EEA stapler the patient's anus. And the spike was driven through the anterior rectal wall. The intervals to the stapler. And then the stapler was closed and fired. The ramu removed. 2 intact tissue rings were removed with stapler. Next, using hydro-glass pulverizer equipment operator the colon was occluded and then the colon was insufflated with air via a rigid sigmoidoscope. The pelvis was filled with water. There is no evidence of any extravasation. The sigmoidoscope was withdrawn. And was irrigated is no bleeding seen. The colostomy site fascia was closed with a #1 Yumiko fix suture. The fascia was closed with looped #1 PDS suture. 2 sutures used to close the fascia. The skin was closed ramu. And then the colostomy site was excised using electrocautery. The specimens of pathology. The anterior fascia was closed with 0 Vicryl. Skin was closed ramu. The caPrevena wound dressing was applied. Patient top she will sent to recovery room in stable condition.
[2022-06-07] MEDS ORDERED: BENZOCAINE/MENTHOL LOZENG 1 EACH LOZENGE MUCOUS MEM PRN (13:51)
[2022-06-07] MEDS: ROPIVACAINE 250 MG, HYDROMORPHONE (PF) 5 MG in SODIUM CHLORIDE 0.9% 200 ML EPIDURAL PRN (14:03)
[2022-06-07 16:36] LABS: Calcium 9.9 mg/dL (8.4-10.2); Potassium 3.9 mmol/L (3.5-5.1)
[2022-06-07 16:48] LABS: Basophils % (A) 0 %; Eosinophils # (A) 0.1 k/uL (0-0.7); Eosinophils % (A) 1 %; HCT 41.1 % (34.0-46.0); HGB 12.7 gm/dL (11.4-16.0); Hypochromasia Slight; Lymphocytes # (A) 0.5 k/uL (1.0-4.8); Lymphocytes % (A) 7 %; MCH 29.4 pg (25.0-35.0); MCV 94.9 fL (80.0-100.0); Mean Platelet Volume 7.8; Monocytes # (A) 0.2 k/uL (0-1.0); Monocytes % (A) 3 %; Neutrophils # (A) 6.2 k/uL (1.3-7.7); Neutrophils % (A) 89 %; Platelet Count 344 k/uL (150-450); RBC 4.33 m/uL (3.80-5.40); RDW 13.9 % (11.5-15.5)
[2022-06-07] MEDS: D5-0.45% NACL WITH KCL 20MEQ/L 1,000 ML IV SCH (17:03)
[2022-06-07] MEDS: HEPARIN SODIUM,PORCINE/PF 5,000 UNIT/0.5 ML SYRINGE SQ SCH (17:03)
[2022-06-08] MEDS: HEPARIN SODIUM,PORCINE/PF 5,000 UNIT/0.5 ML SYRINGE SQ SCH ×3 (01:59→16:48)
[2022-06-08] MEDS: D5-0.45% NACL WITH KCL 20MEQ/L 1,000 ML IV SCH ×3 (02:02→15:16)
[2022-06-08] MEDS: LACTATED RINGERS 1,000 ML IV SCH (07:51)
[2022-06-08] MEDS: ALVIMOPAN 12 MG CAPSULE PO SCH ×2 (08:55→20:11)
--- NOTE | 2022-06-08 09:02 | P.PN ---
Progress Note - Text Progress Note Date: 06/08/22 Patient's postoperative day 1 from reversal colostomy. She is doing well. She has minimal complaints of pain. On exam vital signs are stable. Abdomen soft. Incisions clean dry intact. Patient will remain on clear liquid diet until she has significant bowel function.
--- NOTE | 2022-06-08 13:39 | P.PN ---
Progress Note - Text Progress Note Date: 06/08/22 Patient was seen and evaluated at bedside. Postop day #1 status post reversal of colostomy, and partial omentectomy. Patient is comfortably lying on the bed. Rated pain levels are 2-3 out of 10 in severity. Moving extremities well without any difficulty. He denied any red flag symptoms, pain over the catheter site. Physical exam: Vital signs: stable, afebrile Catheter site: Clean, and intact Dressing. no tenderness over the catheter area. Moving lower extremities without difficulty. Assessment: Acute postoperative pain secondary to reversal of colostomy, and partial omentectomy Plan: Continue epidural infusion solution at the rate of 7 mL per hour. Call anesthesia as needed
[2022-06-08] MEDS: ROPIVACAINE 250 MG, HYDROMORPHONE (PF) 5 MG in SODIUM CHLORIDE 0.9% 200 ML EPIDURAL PRN (16:17)
[2022-06-09] MEDS: D5-0.45% NACL WITH KCL 20MEQ/L 1,000 ML IV SCH ×4 (00:35→22:15)
[2022-06-09] MEDS: HEPARIN SODIUM,PORCINE/PF 5,000 UNIT/0.5 ML SYRINGE SQ SCH ×4 (02:44→12:09)
[2022-06-09] MEDS: ALVIMOPAN 12 MG CAPSULE PO SCH ×2 (08:25→21:10)
--- NOTE | 2022-06-09 10:32 | P.PN ---
Progress Note - Text Progress Note Date: 06/09/22 The patient's postoperative day 2 for reversal colostomy. She's doing quite well. She's had no significant flatus. On exam vital signs are stable. Abdomen soft. Incisions clean dry tach. Patient will continue clear liquid diet. We will start advance her diet once her bowel function returned.
--- NOTE | 2022-06-09 21:24 | P.PN ---
Progress Note - Text Progress Note Date: 06/09/22 Patient was seen and evaluated at bedside. Postop day #2 status post reversal of colostomy, and partial omentectomy. Patient is comfortably sitting on chair. Rated pain levels are 3-4 out of 10 in severity. Moving extremities well without any difficulty. Patient is planning to walk with support. She denied any red flag symptoms, pain over the catheter site. Physical exam: Vital signs: stable, afebrile Catheter site: Clean, and intact Dressing. no tenderness over the catheter ar ea. Moving lower extremities without difficulty. Assessment: Acute postoperative pain secondary to reversal of colostomy, and partial omentectomy Plan: Continue epidural infusion solution at the rate of 7 mL per hour. Plan to discontinue epidural tomorrow morning. Hold heparin PM dose. Call anesthesia as needed
[2022-06-10] MEDS: ROPIVACAINE 250 MG, HYDROMORPHONE (PF) 5 MG in SODIUM CHLORIDE 0.9% 200 ML EPIDURAL PRN (04:48)
[2022-06-10] MEDS: METOCLOPRAMIDE 5 MG/ML 2 ML VIAL IVP PRN ×2 (05:32→21:16)
[2022-06-10] MEDS: D5-0.45% NACL WITH KCL 20MEQ/L 1,000 ML IV SCH ×3 (05:34→22:03)
[2022-06-10] MEDS ORDERED: HYDROcodone/APAP 7.5-325MG 1 EACH TAB PO PRN (06:33)
[2022-06-10] MEDS ORDERED: HYDROmorphone 0.5 MG/0.5 ML SYRINGE IVP PRN (06:33)
--- NOTE | 2022-06-10 07:05 | P.PN ---
Progress Note - Text Progress Note Date: 06/10/22 Patient was seen and evaluated at bedside. Postop day #3 status post reversal of colostomy, and partial omentectomy. Patient is comfortably sitting on the chair. Rated pain levels are 2-3 out of 10 in severity. Moving extremities well without any difficulty. Patient is planning to walk with support. She denied any red flag symptoms, pain over the catheter site. Physical exam: Vital signs: stable, afebrile Catheter site: Clean, and intact Dressing. no tenderness over the catheter area. Moving lower extremities without difficulty. Assessment: Acute postoperative pain secondary to reversal of colostomy, and partial omentectomy heparin was not given last night dose. Can resume subcutaneous heparin 10 AM dose. Platelet count normal. Plan: Epidural catheter removed in total without any difficulty. Sterile dressing applied over the catheter entry site. Call anesthesia as needed. Note: IV Dilaudid 0.5 mg every 6 hours as needed for severe pain plan pain levels 7-10, only if oral pain medications are not helpful [place] 7.5/325 by mouth every 4 to every 6 hours as needed for pain. Discussed with the RN - to conformed with Dr. Craven before continuing narcotic medications.
[2022-06-10] MEDS: ALVIMOPAN 12 MG CAPSULE PO SCH ×2 (08:25→21:11)
[2022-06-10 10:09] LABS: Basophils % (A) 0 %; Eosinophils # (A) 0.2 k/uL (0-0.7); Eosinophils % (A) 2 %; HCT 37.1 % (34.0-46.0); HGB 11.7 gm/dL (11.4-16.0); Lymphocytes # (A) 0.9 k/uL (1.0-4.8); Lymphocytes % (A) 6 %; MCH 29.7 pg (25.0-35.0); MCHC 31.6 g/dL (31.0-37.0); MCV 93.9 fL (80.0-100.0); Mean Platelet Volume 8.5; Monocytes # (A) 0.6 k/uL (0-1.0); Monocytes % (A) 5 %; Neutrophils # (A) 11.7 k/uL (1.3-7.7); Neutrophils % (A) 86 %; Platelet Count 289 k/uL (150-450); RBC 3.95 m/uL (3.80-5.40); WBC 13.6 k/uL (3.8-10.6)
[2022-06-10 10:31] LABS: African American GFR (CKD) 66 (>60 ml/min/1.73 sqM); Anion Gap 11 mmol/L; Blood Urea Nitrogen 12 mg/dL (7-17); Calcium 10.1 mg/dL (8.4-10.2); Carbon Dioxide 25 mmol/L (22-30); Chloride 99 mmol/L (98-107); Glucose 124 mg/dL (74-99); Non-African American GFR(CKD) 57 (>60 ml/min/1.73 sqM); Potassium 4.7 mmol/L (3.5-5.1); Sodium 135 mmol/L (137-145)
[2022-06-10] MEDS: HEPARIN SODIUM,PORCINE/PF 5,000 UNIT/0.5 ML SYRINGE SQ SCH ×2 (11:55→18:28)
--- NOTE | 2022-06-10 12:39 | P.PN ---
Subjective Progress Note Date: 06/10/22 CHIEF COMPLAINT: History of diverticular bleed HISTORY OF PRESENT ILLNESS: Patient is postop day #3 status post colostomy reversal and partial omentectomy. She's sitting at bedside chair. She reports her pain is controlled. She denies any nausea vomiting. Denies any flatus or bowel movement. She did have a low-grade temp 99 heart rate 108. WBC is up at 13.6 she's currently on a clear liquid diet. Epidural is to be discontinued today. Her prevena wound VAC dressing battery . They are recharging. Patient's IV did go bad. Midline has been ordered. Patient seen and examined with Dr. gonzales PHYSICAL EXAM: VITAL SIGNS: Reviewed. GENERAL: Well-developed in no acute distress. HEENT: No sclera icterus. Extraocular movements grossly intact. Moist buccal mucosa. Head is atraumatic, normocephalic. ABDOMEN: Soft. Nondistended. Prevana abdominal dressing in place. surgical area is clean dry and intact NEUROLOGIC: Alert and oriented. Cranial nerves II through XII grossly intact. ASSESSMENT: 1. History of diverticular bleed status post colostomy reversal and partial omentectomy 2. Leukocytosis PLAN: -Continue clear liquid diet -epidural discontinued today -Catheter to be discontinued today -Continue pain management -Continue IV fluids -Repeat CBC in a.m. -Midline ordered -DVT prophylaxis subcu heparin and GI prophylaxis Pepcid Physician Electric Utility Lineworker note has been reviewed by physician. Signing provider agrees with the documented findings, assessment, and plan of care. Objective - Vital Signs Vital signs: Vital Signs Temp 98.0 F 06/10/22 08:00 Pulse 103 H 06/10/22 08:00 Resp 16 06/10/22 08:00 BP 151/73 06/10/22 08:00 Pulse Ox 96 06/10/22 08:00 FiO2 Intake & Output 06/09/22 06/10/22 06/10/22 18:59 06:59 18:59 Intake Total 250 Output Total 1600 1650 50 Balance -1600 -1400 -50 Intake: Intake, IV Titration 250 Amount Ropivacaine 250 mg 250 Hydromorphone (Pf) 5 mg In Sodium Chloride 0.9% 200 ml @ Per Protocol EPIDURAL .Q0M PRN Rx#: [id number] Output: Urine 1600 1650 Emesis 50 Other: Voiding Method Indwelling Catheter Indwelling Catheter Indwelling Catheter - Labs CBC & Chem 7: 06/10/22 09:13 06/10/22 09:13 Labs: Abnormal Lab Results - Last 24 Hours (Table) 06/10/22 06/10/22 Range/Units 09:13 09:13 WBC 13.6 H (3.8-10.6) k/uL Neutrophils # 11.7 H (1.3-7.7) k/uL Lymphocytes # 0.9 L (1.0-4.8) k/uL Sodium 135 L (137-145) mmol/L Glucose 124 H (74-99) mg/dL
[2022-06-10] MEDS: PIPERACILLIN-TAZOBACTAM 3.375 GM in SODIUM CHLORIDE 0.9% 100 ML IVPB SCH (15:46)
[2022-06-10] MEDS: ONDANSETRON 4 MG/2 ML VIAL IVP PRN (16:05)
[2022-06-10] MEDS ORDERED: FAMOTIDINE 20 MG TAB PO SCH (21:00)
[2022-06-11] MEDS: PIPERACILLIN-TAZOBACTAM 3.375 GM in SODIUM CHLORIDE 0.9% 100 ML IVPB SCH ×3 (00:01→17:14)
[2022-06-11] MEDS: HEPARIN SODIUM,PORCINE/PF 5,000 UNIT/0.5 ML SYRINGE SQ SCH ×3 (02:15→17:17)
--- NOTE | 2022-06-11 02:16 | XR ---
EXAMINATION TYPE: XR chest 1V portable DATE OF EXAM: 06/11/2022 COMPARISON: NONE HISTORY: Tube placement TECHNIQUE: Single view FINDINGS: There is elevated right diaphragm. There is some mild linear density at the lung bases. The re is nasogastric tube in the stomach. There are no hilar masses. IMPRESSION: NG tube is in the stomach there is some mild atelectasis at the lung bases. No heart fail ure.
[2022-06-11] MEDS: ALVIMOPAN 12 MG CAPSULE PO SCH ×3 (02:36→20:29)
[2022-06-11] MEDS: amLODIPine 5 MG TAB PO SCH ×2 (04:10→10:31)
--- NOTE | 2022-06-11 05:01 | XR ---
EXAMINATION TYPE: XR chest 1V portable DATE OF EXAM: 06/11/2022 COMPARISON: 3 HISTORY: Tube placement TECHNIQUE: FINDINGS: Heart is normal. There is nasogastric tube with the tip probably in the distal stomach. Tip is not included on the exam. There is no heart failure. There is some mild atelectasis at the lung b ases. IMPRESSION: NG tube has tip probably in the distal stomach. No change
[2022-06-11] MEDS: D5-0.45% NACL WITH KCL 20MEQ/L 1,000 ML IV SCH ×3 (07:38→23:20)
[2022-06-11] MEDS ORDERED: D5-0.45% NACL WITH KCL 20MEQ/L 1,000 ML IV SCH (09:00)
[2022-06-11] MEDS: ONDANSETRON 4 MG/2 ML VIAL IVP PRN ×2 (09:28)
[2022-06-11 10:34] LABS: Basophils # (A) 0.03 X 10*3/uL (0.00-0.10); Basophils % (A) 0.2 %; Eosinophils # (A) 0.01 X 10*3/uL (0.04-0.35); Eosinophils % (A) 0.1 %; HCT 39.7 % (37.2-46.3); HGB 12.8 g/dL (12.0-15.0); Immature Grans, Automated 0.6 %; Lymphocytes # (A) 0.65 X 10*3/uL (0.90-5.00); Lymphocytes % (A) 4.7 %; MCH 29.5 pg (27.0-32.0); MCHC 32.2 g/dL (32.0-37.0); MCV 91.5 fL (80.0-97.0); Mean Platelet Volume 11.1 fL (9.5-12.2); Monocytes # (A) 0.54 X 10*3/uL (0.20-1.00); Monocytes % (A) 3.9 %; NRBC Per 100 WBC 0 /100 WBCS (0.0-0.0); Neutrophils # (A) 12.62 X 10*3/uL (1.80-7.70); Neutrophils % (A) 90.5 %; Platelet Count 461 X 10*3/uL (140-440); RBC 4.34 X 10*6/uL (4.10-5.20); RDW 13.9 % (11.5-14.5); WBC 13.94 X 10*3/uL (4.50-10.00)
[2022-06-11 10:35] LABS: African American GFR (CKD) 67 (>60 ml/min/1.73 sqM); Anion Gap 13 mmol/L; Blood Urea Nitrogen 12 mg/dL (7-17); Calcium 9.7 mg/dL (8.4-10.2); Carbon Dioxide 25 mmol/L (22-30); Chloride 97 mmol/L (98-107); Glucose 221 mg/dL (74-99); Non-African American GFR(CKD) 58 (>60 ml/min/1.73 sqM); Potassium 4.1 mmol/L (3.5-5.1); Sodium 135 mmol/L (137-145)
[2022-06-11] MEDS: FAMOTIDINE 20 MG TAB PO SCH (10:43)
[2022-06-11] MEDS: ACETAMINOPHEN TAB 325 MG TAB PO PRN ×2 (10:43→21:44)
[2022-06-11] MEDS ORDERED: cloNIDine 0.1 MG/24HR PATCH TRANSDERM SCH (11:30)
--- NOTE | 2022-06-11 12:20 | P.PN ---
Subjective Progress Note Date: 06/11/22 CHIEF COMPLAINT: History of diverticular bleed HISTORY OF PRESENT ILLNESS: Patient is postop day #4 status post colostomy reversal and partial omentectomy. She's sitting at bedside chair. Patient coughed and accidentally pulled out NG tube. She's also actively pulled off the wound VAC machine from the dressing. Patient had small bowel movement. She did have some nausea and vomiting last night. This has resolved. Blood pressure elevated this morning. Medicine service adjusting BP meds Afebrile. WBC 13.94 Hgb 12.8 Patient seen and examined with Dr. gonzales PHYSICAL EXAM: VITAL SIGNS: Reviewed. GENERAL: Well-developed in no acute distress. HEENT: No sclera icterus. Extraocular movements grossly intact. Moist buccal mucosa. Head is atraumatic, normocephalic. ABDOMEN: Soft. Nondistended. Prevana abdominal dressing in place. surgical area is clean dry and intact NEUROLOGIC: Alert and oriented. Cranial nerves II through XII grossly intact. ASSESSMENT: 1. History of diverticular bleed status post colostomy reversal and partial omentectomy 2. Leukocytosis PLAN: -Start clear liquid diet -Tylenol added for pain -Okay to leave NG tube out -Okay to discontinue the prevena wound VAC -Place of optifoam silver dressing on incision -Continue pain management -Decrease IV fluids to 75 mL per hour -DVT prophylaxis subcu heparin and GI prophylaxis Pepcid Physician Gear Cutting Machine Operator note has been reviewed by physician. Signing provider agrees with the documented findings, assessment, and plan of care. Objective - Vital Signs Vital signs: Vital Signs Temp 97.9 F 06/11/22 11:41 Pulse 100 06/11/22 11:41 Resp 20 06/11/22 11:41 BP 182/90 06/11/22 12:02 Pulse Ox 97 06/11/22 02:00 FiO2 Intake & Output 06/10/22 06/11/22 06/11/22 18:59 06:59 18:59 Intake Total 1250 Output Total 100 Balance 1150 Intake: IV 1250 D5-0.45% NaCl with KCl 1250 20Meq/l 1,000 ml @ 125 mls/hr IV .Q8H [facility] Rx#: [id number] Output: Emesis 100 Other: Voiding Method Indwelling Catheter Toilet Toilet # Voids 5 - Labs CBC & Chem 7: 06/11/22 07:10 06/11/22 07:10 Labs: Abnormal Lab Results - Last 24 Hours (Table) 06/11/22 06/11/22 Range/Units 07:10 07:10 WBC 13.94 H (4.50-10.00) X 10*3/uL Plt Count 461 H (140-440) X 10*3/uL Immature Gran # 0.09 H (0.00-0.04) X 10*3/uL Neutrophils # 12.62 H (1.80-7.70) X 10*3/uL Lymphocytes # 0.65 L (0.90-5.00) X 10*3/uL Eosinophils # 0.01 L (0.04-0.35) X 10*3/uL Sodium 135 L (137-145) mmol/L Chloride 97 L (98-107) mmol/L Glucose 221 H (74-99) mg/dL
[2022-06-11] MEDS ORDERED: ALPRAZolam 0.5 MG TAB PO PRN (13:22)
--- NOTE | 2022-06-11 13:24 | P.CONS ---
History of Present Illness - Reason for Consult Consult date: 06/11/22 Medical management Requesting physician: Jean Claude Laura - Chief Complaint Reversal of colostomy - History of Present Illness This is a pleasant 71-year-old patient who follows Dr. Sonny Daley. Chronic stable medical conditions include hypertension, CK D stage III, osteoarthritis, depression, hyperlipidemia. On March 10 patient had left colectomy with colostomy by Dr. Laura for bleeding doubt ketosis. On June 07 patient underwent reversal of colostomy. Patient NG tube has come out. Started on clear liquids. Patient's blood pressure was running high. Patient has not been taking Coreg at home. When she was discharged in February she was placed on Coreg for blood pressure. Currently blood pressures running high with systolic in 180s. Catapres patch 0.1 mg ordered. Patient does take a water pill at home. She is also having some abdominal pain. No chest pain or shortness of breath. Patient has not passed any flatus. No nausea vomiting. Review of systems: GEN.: Tired EYES: None HEENT: None NECK: None RESPIRATORY: None CARDIOVASCULAR: None GASTROINTESTINAL: As above GENITOURINARY: None MUSCULOSKELETAL: Some joint pains LYMPHATICS: None HEMATOLOGICAL: None PSYCHIATRY: None NEUROLOGICAL: None Past medical history to include: Diverticular bleed with left colectomy with colostomy, essential hypertension, CK D stage III, osteoarthritis, depression, hyperlipidemia Social history: Lives alone. No smoking. Alcohol occasionally. Family history: Reviewed, noncontributory to presentation On examination: VITAL SIGNS: 97.9, 100, 20, 193/107, 97% room air GENERAL APPEARANCE: Sitting up in a recliner, comfortable. HEENT: Normal external appearance of nose and ear. Oral cavity normal EYES: Pupils equal. Conjunctiva normal. NECK: JVD not raised. Mass not palpable. RESPIRATORY: Respiratory effort normal. Lungs clear to auscultation. CARDIOVASCULAR: First and second sounds normal. No edema. ABDOMEN: Soft. Midline incision with dressing. Liver and spleen not palpable. tenderness-no guarding rigidity. No mass palpable. Bowel sounds present MUSCULAR skeletal: Evidence of OA NEUROLOGICAL: Cranial nerves grossly intact. Bun sensation grossly intact. PSYCHIATRY: Alert and oriented x3. Mood and affect normal. INVESTIGATIONS, reviewed in the clinical context: White count 13.9 hemoglobin 12.8 platelets 461 sodium 135 progression 4.1 creatinine 0.97 Assessment/plan: -Essential Hypertension, uncontrolled Patient had only taking a water pill. Was on Coreg a few months ago. At this point started on a Catapres patch 0.1 mg. Will add Lopressor from tomorrow. -Reversal of colostomy. Prior Left splenic flexure bleed from diverticulosis resulting in left colectomy and colostomy on March [address] Laura. NG tube came out. Started on clear liquids. CK D stage 2 from nephrosclerosis -Follow renal function Primary osteoarthritis -Pain medications as needed Depression -Zoloft 100 mg a day Dyslipidemia -Lipitor Catapres patch 0.1 mg added today. We'll start Lopressor 50 mg twice a day from tomorrow if patient continues to tolerate liquids. Other home medications reviewed. Telemetry. Discussed with patient. Thank you Dr. Laura Past Medical History Past Medical History: GERD/Reflux, Hyperlipidemia, Hypertension, Renal Disease Additional Past Medical History / Comment(s): hx kidney stones, diverticulitis, COVID 08/2021 History of Any Multi-Drug Resistant Organisms: None Reported Past Surgical History: Bowel Resection, Cholecystectomy Additional Past Surgical History / Comment(s): bowel resection with colostomy 03/07/22, Past Anesthesia/Blood Transfusion Reactions: No Reported Reaction Past Psychological History: Depression Smoking Status: Never smoker Past Alcohol Use History: Occasional Past Drug Use History: None Reported - Past Family History Mother Family Medical History: No Reported History Medications and Allergies Home Medications Medication Instructions Recorded Confirmed Type ALPRAZolam [Xanax] 0.5 mg PO HS PRN 03/07/22 06/07/22 History Ascorbic Acid [Vitamin C] 1,000 mg PO DAILY 03/07/22 06/07/22 History Atorvastatin Calcium [Lipitor] 80 mg PO HS 03/07/22 06/07/22 History Magnesium Oxide [Mag-Ox] 400 mg PO DAILY 03/07/22 06/07/22 History Sertraline HCl [Zoloft] 100 mg PO DAILY 03/07/22 06/07/22 History Vitamin E (Dl,Tocopheryl Acet) 400 unit PO DAILY 03/07/22 06/06/22 History [Vitamin E (400 Iu = 180 mg)] Acetaminophen [Tylenol Arthritis] 1,300 mg PO DAILY 06/05/22 06/07/22 History Cholecalciferol [Vitamin D3 (25 50 mcg PO DAILY 06/05/22 06/07/22 History Mcg = 1000 Iu)] Cyanocobalamin (Vitamin B-12) 250 mcg PO DAILY 06/05/22 06/07/22 History [Vitamin B-12] Niacin 500 mg PO DAILY 06/05/22 06/07/22 History Allergies Allergy/AdvReac Type Severity Reaction Status Date / Time No Known Allergies Allergy Verified 06/05/22 10:49 Physical Exam Vitals: Vital Signs Temp Pulse Pulse Resp BP Pulse Ox 06/11/22 12:02 182/90 06/11/22 11:41 97.9 F 100 20 193/107 06/11/22 11:09 178/101 06/11/22 08:00 105 H 20 06/11/22 07:42 97.5 F L 105 H 20 194/101 06/11/22 02:00 97.5 F L 102 H 15 182/102 97 06/10/22 20:00 99.5 F 97 97 17 169/71 96 06/10/22 14:00 99.3 F 99 16 171/84 98 Intake and Output 06/10/22 06/11/22 06/11/22 22:59 06:59 14:59 Intake Total 1250 Output Total 50 Balance 1200 Intake: IV 1250 D5-0.45% NaCl with KCl 1250 20Meq/l 1,000 ml @ 125 mls/hr IV .Q8H [facility] Rx#: [id number] Output: Emesis 50 Other: Voiding Method Toilet Toilet # Voids 5 Results CBC & Chem 7: 06/11/22 07:10 06/11/22 07:10 Labs: Abnormal Lab Results - Last 24 Hours (Table) 06/11/22 06/11/22 Range/Units 07:10 07:10 WBC 13.94 H (4.50-10.00) X 10*3/uL Plt Count 461 H (140-440) X 10*3/uL Immature Gran # 0.09 H (0.00-0.04) X 10*3/uL Neutrophils # 12.62 H (1.80-7.70) X 10*3/uL Lymphocytes # 0.65 L (0.90-5.00) X 10*3/uL Eosinophils # 0.01 L (0.04-0.35) X 10*3/uL Sodium 135 L (137-145) mmol/L Chloride 97 L (98-107) mmol/L Glucose 221 H (74-99) mg/dL
[2022-06-11] MEDS: ATORVASTATIN 80 MG TAB PO SCH (20:37)
[2022-06-12] MEDS: PIPERACILLIN-TAZOBACTAM 3.375 GM in SODIUM CHLORIDE 0.9% 100 ML IVPB SCH ×3 (00:33→15:05)
[2022-06-12] MEDS: HEPARIN SODIUM,PORCINE/PF 5,000 UNIT/0.5 ML SYRINGE SQ SCH ×3 (02:29→17:55)
[2022-06-12] MEDS: ALVIMOPAN 12 MG CAPSULE PO SCH ×2 (08:44→21:06)
[2022-06-12] MEDS: amLODIPine 5 MG TAB PO SCH (08:55)
[2022-06-12] MEDS: FAMOTIDINE 20 MG TAB PO SCH (08:56)
[2022-06-12] MEDS: NIACIN TR 500 MG CAPLET PO SCH (08:58)
[2022-06-12] MEDS: CYANOCOBALAMIN 500 MCG TAB PO SCH (08:59)
[2022-06-12] MEDS ORDERED: METOPROLOL TARTRATE 50 MG TAB PO SCH (09:00)
[2022-06-12] MEDS: SERTRALINE 100 MG TAB PO SCH (09:02)
[2022-06-12] MEDS: ACETAMINOPHEN TAB 325 MG TAB PO PRN ×3 (10:44→22:06)
[2022-06-12 10:46] LABS: Basophils # (A) 0.1 k/uL (0-0.2); Basophils % (A) 0 %; Eosinophils # (A) 0.3 k/uL (0-0.7); Eosinophils % (A) 2 %; HCT 47.4 % (34.0-46.0); Lymphocytes # (A) 1.6 k/uL (1.0-4.8); Lymphocytes % (A) 12 %; MCH 29.5 pg (25.0-35.0); MCHC 31.9 g/dL (31.0-37.0); MCV 92.6 fL (80.0-100.0); Mean Platelet Volume 9.6; Monocytes # (A) 0.9 k/uL (0-1.0); Monocytes % (A) 7 %; Neutrophils # (A) 10.1 k/uL (1.3-7.7); Neutrophils % (A) 77 %; Platelet Count 423 k/uL (150-450); RBC 5.12 m/uL (3.80-5.40); RDW 14.1 % (11.5-15.5); WBC 13.1 k/uL (3.8-10.6)
[2022-06-12 10:54] LABS: HGB 15.1 gm/dL (11.4-16.0)
[2022-06-12] MEDS: D5-0.45% NACL WITH KCL 20MEQ/L 1,000 ML IV SCH ×2 (11:59→15:05)
--- NOTE | 2022-06-12 13:44 | P.PN ---
Subjective Progress Note Date: 06/12/22 CHIEF COMPLAINT: History of diverticular bleed HISTORY OF PRESENT ILLNESS: Patient is postop day #5 status post colostomy reversal and partial omentectomy. She's sitting at bedside chair. Patient reports her pain is controlled. She is having a little more pain this morning. But she is gone since yesterday without any pain medication. She did have a BM and flatus. Denies any nausea or vomiting. Does report a decreased appetite. Afebrile. Mild tachycardia improved. WBC 13.1 patient is scheduled for midline placement. Her IV was pulled out. PHYSICAL EXAM: VITAL SIGNS: Reviewed. GENERAL: Well-developed in no acute distress. HEENT: No sclera icterus. Extraocular movements grossly intact. Moist buccal mucosa. Head is atraumatic, normocephalic. ABDOMEN: Soft. Nondistended. Dressing clean dry and intact NEUROLOGIC: Alert and oriented. Cranial nerves II through XII grossly intact. ASSESSMENT: 1. History of diverticular bleed status post colostomy reversal and partial omentectomy 2. Leukocytosis PLAN: -continue clear liquid diet -Patient scheduled for midline placement for IV fluids and antibiotics -Continue antibiotics -Continue pain medication as needed -Encourage patient to ambulate -Encourage patient to use incentive spirometer -DVT prophylaxis subcu heparin and GI prophylaxis Pepcid Physician Filing Clerk note has been reviewed by physician. Signing provider agrees with the documented findings, assessment, and plan of care. Objective - Vital Signs Vital signs: Vital Signs Temp 96.8 F L 06/12/22 12:34 Pulse 83 06/12/22 12:34 Resp 16 06/12/22 12:34 BP 169/84 06/12/22 12:34 Pulse Ox 96 06/12/22 12:34 FiO2 Intake & Output 06/11/22 06/12/22 06/12/22 18:59 06:59 18:59 Intake Total 540 Balance 540 Intake: Oral 540 Other: Voiding Method Toilet Toilet Toilet # Voids 2 - Labs CBC & Chem 7: 06/12/22 08:14 06/11/22 07:10 Labs: Abnormal Lab Results - Last 24 Hours (Table) 06/12/22 Range/Units 08:14 WBC 13.1 H (3.8-10.6) k/uL Hct 47.4 H (34.0-46.0) % Neutrophils # 10.1 H (1.3-7.7) k/uL
[2022-06-12 14:09] VITALS: BMI 32.9
[2022-06-12] MEDS: METOPROLOL TARTRATE 50 MG TAB PO SCH ×2 (15:06→21:06)
--- NOTE | 2022-06-12 18:25 | P.PN ---
Progress Note - Text Progress Note Date: 06/12/22 - Chief Complaint Reversal of colostomy Hospital course This is a pleasant 71-year-old patient who follows Dr. Sonny Daley. Chronic stable medical conditions include hypertension, CK D stage III, osteoarthritis, depression, hyperlipidemia. On March 10 patient had left colectomy with colostomy by Dr. Laura for bleeding doubt ketosis. On June 07 patient underwent reversal of colostomy. Patient NG tube has come out. Started on clear liquids. Patient's blood pressure was running high. Patient has not been taking Coreg at home. When she was discharged in February she was placed on Coreg for blood pressure. Currently blood pressures running high with systolic in 180s. Catapres patch 0.1 mg ordered. Patient does take a water pill at home. She is also having some abdominal pain. No chest pain or shortness of breath. Patient has not passed any flatus. No nausea vomiting. June 12: Patient clear liquid diet. No BM. Did pass some flatus last night. Up in a chair. DC Catapres patch. Increase Lopressor to 50 mg 3 times a day. Active Medications Acetaminophen (Acetaminophen Tab 325 Mg Tab) 650 mg PO Q6HR PRN PRN Reason: Fever and/ or Pain Last Admin: 06/12/22 16:35 Dose: 650 mg Hydrocodone Bitart/Acetaminophen (Hydrocodone/Apap 7.5-325mg 1 Each Tab) 1 each PO Q6HR PRN PRN Reason: Pain Alprazolam (Alprazolam 0.5 Mg Tab) 0.5 mg PO HS PRN PRN Reason: Anxiety Alvimopan (Alvimopan 12 Mg Capsule) 12 mg PO BID [facility] Stop: 06/14/22 21:01 Last Admin: 06/12/22 08:44 Dose: Not Given Atorvastatin Calcium (Atorvastatin 80 Mg Tab) 80 mg PO HS [facility] Last Admin: 06/11/22 20:37 Dose: 80 mg Benzocaine/Menthol (Benzocaine/Menthol Lozeng 1 Each Lozenge) 1 each MUCOUS MEM Q1HR PRN PRN Reason: Sore Throat Cyanocobalamin (Cyanocobalamin 500 Mcg Tab) 250 mcg PO DAILY [facility] Last Admin: 06/12/22 08:59 Dose: 250 mcg Famotidine (Famotidine 20 Mg Tab) 20 mg PO DAILY [facility] Last Admin: 06/12/22 08:56 Dose: 20 mg Heparin Sodium (Porcine) (Heparin Sodium,Porcine/Pf 5,000 Unit/0.5 Ml Syringe) 5,000 unit SQ Q8H [facility] Last Admin: 06/12/22 17:55 Dose: Not Given Hydromorphone HCl (Hydromorphone 0.5 Mg/0.5 Ml Syringe) 0.5 mg IVP Q6HR PRN PRN Reason: Pain Piperacillin Sod/Tazobactam (Sod 3.375 gm/ Sodium Chloride) 100 mls @ 25 mls/hr IVPB Q8HR [facility]; Protocol Last Admin: 06/12/22 15:05 Dose: 25 mls/hr Potassium Chloride/Dextrose/Sod Cl (D5%-1/2ns-Kcl 20 Meq/L Iv Solution) 1,000 mls @ 75 mls/hr IV .[id number] [facility] Last Admin: 06/12/22 15:05 Dose: 75 mls/hr Metoclopramide HCl (Metoclopramide 5 Mg/Ml 2 Ml Vial) 10 mg IVP Q6HR PRN PRN Reason: Nausea and Vomiting Last Admin: 06/10/22 21:16 Dose: 10 mg Metoprolol Tartrate (Metoprolol Tartrate 50 Mg Tab) 50 mg PO TID [facility] Last Admin: 06/12/22 15:06 Dose: 50 mg Naloxone HCl (Naloxone 0.4 Mg/Ml 1 Ml Vial) 0.2 mg IV Q2M PRN PRN Reason: Opioid Reversal Niacin (Niacin Tr 500 Mg Caplet) 500 mg PO DAILY [facility] Last Admin: 06/12/22 08:58 Dose: 500 mg Ondansetron HCl (Ondansetron 4 Mg/2 Ml Vial) 4 mg IVP Q8HR PRN PRN Reason: Nausea And Vomiting Last Admin: 06/11/22 09:28 Dose: 4 mg Sertraline HCl (Sertraline 100 Mg Tab) 100 mg PO DAILY [facility] Last Admin: 06/12/22 09:02 Dose: 100 mg Past medical history to include: Diverticular bleed with left colectomy with colostomy, essential hypertension, CK D stage III, osteoarthritis, depression, hyperlipidemia Social history: Lives alone. No smoking. Alcohol occasionally. Family history: Reviewed, noncontributory to presentation On examination: VITAL SIGNS: 96.8, 83, 16, 1 57/83, 96% room air GENERAL APPEARANCE: Sitting up in a recliner, comfortable. HEENT: Normal external appearance of nose and ear. Oral cavity normal EYES: Pupils equal. Conjunctiva normal. NECK: JVD not raised. Mass not palpable. RESPIRATORY: Respiratory effort normal. Lungs clear to auscultation. CARDIOVASCULAR: First and second sounds normal. No edema. ABDOMEN: Soft. Midline incision with dressing. Liver and spleen not palpable. tenderness-no guarding rigidity. No mass palpable. Bowel sounds present MUSCULAR skeletal: Evidence of OA NEUROLOGICAL: Cranial nerves grossly intact. Bun sensation grossly intact. PSYCHIATRY: Alert and oriented x3. Mood and affect normal. INVESTIGATIONS, reviewed in the clinical context: June 12: WBC 13.1 hemoglobin 15.1 platelets 423 White count 13.9 hemoglobin 12.8 platelets 461 sodium 135 progression 4.1 creatinine 0.97 Assessment/plan: -Essential Hypertension, uncontrolled DC Catapres patch. Start Lopressor 50 mg 3 times a day. -Reversal of colostomy. Prior Left splenic flexure bleed from diverticulosis resulting in left colectomy and colostomy on March [address] Laura. Started on clear liquids. CK D stage 2 from nephrosclerosis -Follow renal function Primary osteoarthritis -Pain medications as needed Depression -Zoloft 100 mg a day Dyslipidemia -Lipitor DC Catapres patch. Increase Lopressor to 50 mg 3 times a day. Other medications to continue. Clear liquids. Increase activity. Thank you Dr. Laura
[2022-06-12] MEDS: ATORVASTATIN 80 MG TAB PO SCH (21:06)
[2022-06-13] MEDS: PIPERACILLIN-TAZOBACTAM 3.375 GM in SODIUM CHLORIDE 0.9% 100 ML IVPB SCH ×4 (00:52→20:15)
[2022-06-13] MEDS: D5-0.45% NACL WITH KCL 20MEQ/L 1,000 ML IV SCH ×3 (02:30→20:16)
[2022-06-13] MEDS: HEPARIN SODIUM,PORCINE/PF 5,000 UNIT/0.5 ML SYRINGE SQ SCH ×3 (02:31→16:35)
[2022-06-13 08:17] LABS: HCT 42.5 % (34.0-46.0); HGB 13.5 gm/dL (11.4-16.0); MCH 29.4 pg (25.0-35.0); MCHC 31.8 g/dL (31.0-37.0); MCV 92.4 fL (80.0-100.0); Mean Platelet Volume 7.6; Platelet Count 464 k/uL (150-450); WBC 20.1 k/uL (3.8-10.6)
[2022-06-13] MEDS: ALVIMOPAN 12 MG CAPSULE PO SCH (10:27)
[2022-06-13] MEDS: FAMOTIDINE 20 MG TAB PO SCH (10:47)
[2022-06-13] MEDS: NIACIN TR 500 MG CAPLET PO SCH (10:47)
[2022-06-13] MEDS: SERTRALINE 100 MG TAB PO SCH (10:47)
[2022-06-13] MEDS: ACETAMINOPHEN TAB 325 MG TAB PO PRN ×2 (10:48→19:17)
[2022-06-13] MEDS: METOPROLOL TARTRATE 50 MG TAB PO SCH (10:48)
[2022-06-13] MEDS: CYANOCOBALAMIN 500 MCG TAB PO SCH (10:49)
--- NOTE | 2022-06-13 11:31 | P.PN ---
Subjective Progress Note Date: 06/13/22 CHIEF COMPLAINT: History of diverticular bleed HISTORY OF PRESENT ILLNESS: Patient is postop day #6 status post colostomy reversal and partial omentectomy. Patient is lying in bed comfortably. She does complain of abdominal pain. She reports that it's less than yesterday. She reports her pain is about a 3 out of 10. Yesterday she is rating it about 4 out of 10. She did have a couple of bloody bowel movements yesterday. The last stool which is minimal amount of blood. She has minimal nausea. Reports decreased appetite. She told nursing staff that she did not like the clear liquids. Afebrile. WBC is up from 13.1-20.1 patient did go 24 hours without antibiotics due to no IV access. She does have midline in place. Hemoglobin 13.5 platelets 464 PHYSICAL EXAM: VITAL SIGNS: Reviewed. GENERAL: Well-developed in no acute distress. HEENT: No sclera icterus. Extraocular movements grossly intact. Moist buccal mucosa. Head is atraumatic, normocephalic. ABDOMEN: Soft. Nondistended. Minimal tenderness. Dressing clean dry and intact NEUROLOGIC: Alert and oriented. Cranial nerves II through XII grossly intact. ASSESSMENT: 1. History of diverticular bleed status post colostomy reversal and partial omentectomy 2. Leukocytosis PLAN: -Advance diet to full liquids -Continue antibiotics -Continue pain medication as needed -Encourage patient to ambulate -Encourage patient to use incentive spirometer -DVT prophylaxis subcu heparin and GI prophylaxis Pepcid Physician Business Operations Coordinator note has been reviewed by physician. Signing provider agrees with the documented findings, assessment, and plan of care. Objective - Vital Signs Vital signs: Vital Signs Temp 98.3 F 06/13/22 08:00 Pulse 70 06/13/22 08:00 Resp 16 06/13/22 08:00 BP 134/69 06/13/22 08:00 Pulse Ox 97 06/13/22 08:00 FiO2 Intake & Output 06/12/22 06/13/22 06/13/22 18:59 06:59 18:59 Weight 81.65 kg Other: Voiding Method Toilet Toilet Toilet # Bowel Movements 1 1 - Labs CBC & Chem 7: 06/13/22 07:45 06/11/22 07:10 Labs: Abnormal Lab Results - Last 24 Hours (Table) 06/13/22 Range/Units 07:45 WBC 20.1 H (3.8-10.6) k/uL Plt Count 464 H (150-450) k/uL
--- NOTE | 2022-06-13 13:01 | P.PN ---
Progress Note - Text Progress Note Date: 06/13/22 - Chief Complaint Reversal of colostomy Hospital course This is a pleasant 71-year-old patient who follows Dr. Sonny Daley. Chronic stable medical conditions include hypertension, CK D stage III, osteoarthritis, depression, hyperlipidemia. On March 10 patient had left colectomy with colostomy by Dr. Laura for bleeding doubt ketosis. On June 07 patient underwent reversal of colostomy. Patient NG tube has come out. Started on clear liquids. Patient's blood pressure was running high. Patient has not been taking Coreg at home. When she was discharged in February she was placed on Coreg for blood pressure. Currently blood pressures running high with systolic in 180s. Catapres patch 0.1 mg ordered. Patient does take a water pill at home. She is also having some abdominal pain. No chest pain or shortness of breath. Patient has not passed any flatus. No nausea vomiting. June 12: Patient clear liquid diet. No BM. Did pass some flatus last night. Up in a chair. DC Catapres patch. Increase Lopressor to 50 mg 3 times a day. June 13: Patient did have a BM. Passed flatus. Abdominal pain much better. Advance to full liquid diet per surgery. Has been out of bed. Feeling better. Active Medications Acetaminophen (Acetaminophen Tab 325 Mg Tab) 650 mg PO Q6HR PRN PRN Reason: Fever and/ or Pain Last Admin: 06/13/22 10:48 Dose: 650 mg Hydrocodone Bitart/Acetaminophen (Hydrocodone/Apap 7.5-325mg 1 Each Tab) 1 each PO Q6HR PRN PRN Reason: Pain Alprazolam (Alprazolam 0.5 Mg Tab) 0.5 mg PO HS PRN PRN Reason: Anxiety Alvimopan (Alvimopan 12 Mg Capsule) 12 mg PO BID [facility] Stop: 06/14/22 21:01 Last Admin: 06/13/22 10:27 Dose: Not Given Atorvastatin Calcium (Atorvastatin 80 Mg Tab) 80 mg PO HS [facility] Last Admin: 06/12/22 21:06 Dose: 80 mg Benzocaine/Menthol (Benzocaine/Menthol Lozeng 1 Each Lozenge) 1 each MUCOUS MEM Q1HR PRN PRN Reason: Sore Throat Cyanocobalamin (Cyanocobalamin 500 Mcg Tab) 250 mcg PO DAILY [facility] Last Admin: 06/13/22 10:49 Dose: 250 mcg Famotidine (Famotidine 20 Mg Tab) 20 mg PO DAILY [facility] Last Admin: 06/13/22 10:47 Dose: 20 mg Heparin Sodium (Porcine) (Heparin Sodium,Porcine/Pf 5,000 Unit/0.5 Ml Syringe) 5,000 unit SQ Q8H [facility] Last Admin: 06/13/22 10:49 Dose: 5,000 unit Hydromorphone HCl (Hydromorphone 0.5 Mg/0.5 Ml Syringe) 0.5 mg IVP Q6HR PRN PRN Reason: Pain Piperacillin Sod/Tazobactam (Sod 3.375 gm/ Sodium Chloride) 100 mls @ 25 mls/hr IVPB Q8HR [facility]; Protocol Last Admin: 06/13/22 10:55 Dose: 25 mls/hr Potassium Chloride/Dextrose/Sod Cl (D5%-1/2ns-Kcl 20 Meq/L Iv Solution) 1,000 mls @ 75 mls/hr IV .[id number] [facility] Last Admin: 06/13/22 02:30 Dose: 75 mls/hr Metoclopramide HCl (Metoclopramide 5 Mg/Ml 2 Ml Vial) 10 mg IVP Q6HR PRN PRN Reason: Nausea and Vomiting Last Admin: 06/10/22 21:16 Dose: 10 mg Metoprolol Tartrate (Metoprolol Tartrate 50 Mg Tab) 50 mg PO TID [facility] Last Admin: 06/13/22 10:48 Dose: 50 mg Naloxone HCl (Naloxone 0.4 Mg/Ml 1 Ml Vial) 0.2 mg IV Q2M PRN PRN Reason: Opioid Reversal Niacin (Niacin Tr 500 Mg Caplet) 500 mg PO DAILY [facility] Last Admin: 06/13/22 10:47 Dose: 500 mg Ondansetron HCl (Ondansetron 4 Mg/2 Ml Vial) 4 mg IVP Q8HR PRN PRN Reason: Nausea And Vomiting Last Admin: 06/11/22 09:28 Dose: 4 mg Sertraline HCl (Sertraline 100 Mg Tab) 100 mg PO DAILY [facility] Last Admin: 06/13/22 10:47 Dose: 100 mg Past medical history to include: Diverticular bleed with left colectomy with colostomy, essential hypertension, CK D stage III, osteoarthritis, depression, hyperlipidemia Social history: Lives alone. No smoking. Alcohol occasionally. Family history: Reviewed, noncontributory to presentation On examination: VITAL SIGNS: 98.2, 66, 17, 1 57 x 86, 97% room air GENERAL APPEARANCE: Resting in bed comfortable. HEENT: Normal external appearance of nose and ear. Oral cavity normal EYES: Pupils equal. Conjunctiva normal. NECK: JVD not raised. Mass not palpable. RESPIRATORY: Respiratory effort normal. Lungs clear to auscultation. CARDIOVASCULAR: First and second sounds normal. No edema. ABDOMEN: Soft. Midline incision with dressing. Liver and spleen not palpable. tenderness-no guarding rigidity. No mass palpable. Bowel sounds present MUSCULAR skeletal: Evidence of OA NEUROLOGICAL: Cranial nerves grossly intact. Bun sensation grossly intact. PSYCHIATRY: Alert and oriented x3. Mood and affect normal. INVESTIGATIONS, reviewed in the clinical context: June 13: WBC 20.1 hemoglobin 13.5 inches. 64 June 12: WBC 13.1 hemoglobin 15.1 platelets 423 White count 13.9 hemoglobin 12.8 platelets 461 sodium 135 progression 4.1 creatinine 0.97 Assessment/plan: -Essential Hypertension, better Change Lopressor to 75 mg twice a day. Add lisinopril hydrochlorothiazide 10/12.5 daily at bedtime -Reversal of colostomy. Prior Left splenic flexure bleed from diverticulosis resulting in left colectomy and colostomy on March [address] Laura. Head BM and flatus. Advance to full liquids. 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 Add lisinopril hydrochlorothiazide 10/12.5 daily at bedtime. Increase activity. Thank you Dr. Laura
[2022-06-13 19:06] VITALS: RESP 16
[2022-06-13] MEDS: ATORVASTATIN 80 MG TAB PO SCH (19:17)
[2022-06-13] MEDS: METOPROLOL TARTRATE 25 MG TAB PO SCH (19:17)
[2022-06-13] MEDS ORDERED: LISINOPRIL-HCTZ 10-12.5 MG 1 EACH TAB PO SCH (21:00)
[2022-06-14] MEDS: HEPARIN SODIUM,PORCINE/PF 5,000 UNIT/0.5 ML SYRINGE SQ SCH ×2 (01:13→09:55)
[2022-06-14 09:30] LABS: African American GFR (CKD) 51.9 (60.0-200.0); Anion Gap 11.9 mmol/L (10.00-18.00); BUN/Creat Ratio 17.58 Ratio (12.00-20.00); Blood Urea Nitrogen 21.1 mg/dL (9.0-27.0); Calcium 9.2 mg/dL (8.7-10.3); Carbon Dioxide 27.1 mmol/L (20.0-27.5); Non-African American GFR(CKD) 44.8 (60.0-200.0); Potassium 3.1 mmol/L (3.5-5.5)
[2022-06-14] MEDS: METOPROLOL TARTRATE 25 MG TAB PO SCH (09:54)
[2022-06-14] MEDS: NIACIN TR 500 MG CAPLET PO SCH (09:54)
[2022-06-14] MEDS: CYANOCOBALAMIN 500 MCG TAB PO SCH (09:54)
[2022-06-14] MEDS: SERTRALINE 100 MG TAB PO SCH (09:54)
[2022-06-14] MEDS: PIPERACILLIN-TAZOBACTAM 3.375 GM in SODIUM CHLORIDE 0.9% 100 ML IVPB SCH (10:07)
[2022-06-14] MEDS: FAMOTIDINE 20 MG TAB PO SCH (10:14)
[2022-06-14] MEDS: ACETAMINOPHEN TAB 325 MG TAB PO PRN (10:23)
[2022-06-14 11:04] LABS: Basophils # (A) 0.05 X 10*3/uL (0.00-0.10); Basophils % (A) 0.3 %; Eosinophils # (A) 0.24 X 10*3/uL (0.04-0.35); Eosinophils % (A) 1.4 %; HCT 35.2 % (37.2-46.3); HGB 11.5 g/dL (12.0-15.0); Immature Grans, Automated 1.1 %; MCH 30.2 pg (27.0-32.0); MCHC 32.7 g/dL (32.0-37.0); MCV 92.4 fL (80.0-97.0); Mean Platelet Volume 10.7 fL (9.5-12.2); Monocytes # (A) 1.28 X 10*3/uL (0.20-1.00); Monocytes % (A) 7.4 %; NRBC Per 100 WBC 0 /100 WBCS (0.0-0.0); Neutrophils # (A) 13.01 X 10*3/uL (1.80-7.70); Neutrophils % (A) 74.8 %; Platelet Count 426 X 10*3/uL (140-440); RBC 3.81 X 10*6/uL (4.10-5.20); RDW 14.2 % (11.5-14.5); WBC 17.37 X 10*3/uL (4.50-10.00)
[2022-06-14] MEDS ORDERED: POTASSIUM CHLORIDE ER 20 MEQ TAB.ER PO STA (11:20)
--- NOTE | 2022-06-14 12:48 | P.DS ---
Providers Date of admission: 06/07/22 08:51 Expected date of discharge: 06/14/22 Attending physician: Jean Claude Laura Consults: 06/11/22 02:18 Consult Physician Routine Consulting Provider: Daren Contreras Consult Reason/Comments: Medical Management Do you want consulting provider notified?: Yes Primary care physician: Sonny Daley Hospital Course: Discharge diagnosis 1. History of diverticular bleed status post colostomy reversal and partial omentectomy 2. Leukocytosis Hospital course This is a 71-year-old female known history of a diverticular bleed she is status post colostomy reversal and partial omentectomy. She tolerated surgery well. Her pain is controlled. She is tolerating diet. She is having bowel movements. She is afebrile. She has been up and ambulating. She does have leukocytosis. Her white count is trending downwards. Patient will be discharged home with antibiotics. Patient is stable for discharge. Please refer to chart for any further details. Physician Gas Cutting Machine Operator note has been reviewed by physician. Signing provider agrees with the documented findings, assessment, and plan of care. Patient Condition at Discharge: Stable Plan - Discharge Summary Discharge Rx Participant: Yes New Discharge Prescriptions: New Metoprolol Tartrate [Lopressor] 75 mg PO BID #60 tab Levofloxacin [Levaquin] 500 mg PO DAILY 7 Days #7 tab Acetaminophen Tab [Tylenol] 650 mg PO Q6HR PRN tab PRN Reason: Fever And/ Or Pain Lisinopril-Hctz 10-12.5 mg [Zestoretic 10-12.5] 1 each PO HS #30 tab Continue Atorvastatin Calcium [Lipitor] 80 mg PO HS Sertraline HCl [Zoloft] 100 mg PO DAILY Niacin 500 mg PO DAILY Ascorbic Acid [Vitamin C] 1,000 mg PO DAILY Vitamin E (Dl,Tocopheryl Acet) [Vitamin E (400 Iu = 180 mg)] 400 unit PO DAILY Magnesium Oxide [Mag-Ox] 400 mg PO DAILY ALPRAZolam [Xanax] 0.5 mg PO HS PRN PRN Reason: Anxiety Cyanocobalamin (Vitamin B-12) [Vitamin B-12] 250 mcg PO DAILY Cholecalciferol [Vitamin D3 (25 Mcg = 1000 Iu)] 50 mcg PO DAILY Discontinued Acetaminophen [Tylenol Arthritis] 1,300 mg PO DAILY Discharge Medication List ALPRAZolam [Xanax] 0.5 mg PO HS PRN 03/07/22 [History] Ascorbic Acid [Vitamin C] 1,000 mg PO DAILY 03/07/22 [History] Atorvastatin Calcium [Lipitor] 80 mg PO HS 03/07/22 [History] Magnesium Oxide [Mag-Ox] 400 mg PO DAILY 03/07/22 [History] Sertraline HCl [Zoloft] 100 mg PO DAILY 03/07/22 [History] Vitamin E (Dl,Tocopheryl Acet) [Vitamin E (400 Iu = 180 mg)] 400 unit PO DAILY 03/07/22 [History] Cholecalciferol [Vitamin D3 (25 Mcg = 1000 Iu)] 50 mcg PO DAILY 06/05/22 [History] Cyanocobalamin (Vitamin B-12) [Vitamin B-12] 250 mcg PO DAILY 06/05/22 [History] Niacin 500 mg PO DAILY 06/05/22 [History] Acetaminophen Tab [Tylenol] 650 mg PO Q6HR PRN tab 06/14/22 [Rx] Levofloxacin [Levaquin] 500 mg PO DAILY 7 Days #7 tab 06/14/22 [Rx] Lisinopril-Hctz 10-12.5 mg [Zestoretic 10-12.5] 1 each PO HS #30 tab 06/14/22 [Rx] Metoprolol Tartrate [Lopressor] 75 mg PO BID #60 tab 06/14/22 [Rx] Follow up Appointment(s)/Referral(s): Sonny Daley MD [Primary Care Provider] - 1 Week Jean Claude Laura MD [STAFF PHYSICIAN] - 1 Week Activity/Diet/Wound Care/Special Instructions: No lifting over 10 pounds Shower daily. No soaking or tub baths for 2 weeks Very light activity until you are reevaluated at your follow up appointment with your surgeon Advance diet slowly over the next couple of days to regular Discharge Disposition: HOME SELF-CARE
[2022-06-14 12:52] VITALS: BP 145/79; PULSE 66; TEMP 98
--- NOTE | 2022-06-14 21:18 | P.PN ---
Progress Note - Text Progress Note Date: 06/14/22 - Chief Complaint Reversal of colostomy Hospital course This is a pleasant 71-year-old patient who follows Dr. Sonny Daley. Chronic stable medical conditions include hypertension, CK D stage III, osteoarthritis, depression, hyperlipidemia. On March 10 patient had left colectomy with colostomy by Dr. Laura for bleeding doubt ketosis. On June 07 patient underwent reversal of colostomy. Patient NG tube has come out. Started on clear liquids. Patient's blood pressure was running high. Patient has not been taking Coreg at home. When she was discharged in February she was placed on Coreg for blood pressure. Currently blood pressures running high with systolic in 180s. Catapres patch 0.1 mg ordered. Patient does take a water pill at home. She is also having some abdominal pain. No chest pain or shortness of breath. Patient has not passed any flatus. No nausea vomiting. June 12: Patient clear liquid diet. No BM. Did pass some flatus last night. Up in a chair. DC Catapres patch. Increase Lopressor to 50 mg 3 times a day. June 13: Patient did have a BM. Passed flatus. Abdominal pain much better. Advance to full liquid diet per surgery. Has been out of bed. Feeling better. June 14: Had some loose stools. Pain control. Tolerating liquid diet. Has been out of bed. Patient been discharged by surgery. Discussed with patient. Current medications reviewed Past medical history to include: Diverticular bleed with left colectomy with colostomy, essential hypertension, CK D stage III, osteoarthritis, depression, hyperlipidemia Social history: Lives alone. No smoking. Alcohol occasionally. Family history: Reviewed, noncontributory to presentation On examination: VITAL SIGNS: 98, 66, 16, 145-79, 98% room air GENERAL APPEARANCE: Resting in bed comfortable. HEENT: Normal external appearance of nose and ear. Oral cavity normal EYES: Pupils equal. Conjunctiva normal. NECK: JVD not raised. Mass not palpable. RESPIRATORY: Respiratory effort normal. Lungs clear to auscultation. CARDIOVASCULAR: First and second sounds normal. No edema. ABDOMEN: Soft. Midline incision with dressing. Liver and spleen not palpable. Minimal tenderness-no guarding rigidity. No mass palpable. Bowel sounds present MUSCULAR skeletal: Evidence of OA NEUROLOGICAL: Cranial nerves grossly intact. Bun sensation grossly intact. PSYCHIATRY: Alert and oriented x3. Mood and affect normal. INVESTIGATIONS, reviewed in the clinical context: June 14: WBC 7.3 hemoglobin 11.5 potassium 3.1 creatinine 1.2 June 13: WBC 20.1 hemoglobin 13.5 inches. 64 June 12: WBC 13.1 hemoglobin 15.1 platelets 423 White count 13.9 hemoglobin 12.8 platelets 461 sodium 135 progression 4.1 creatinine 0.97 Assessment/plan: -Essential Hypertension, better Lopressor to 75 mg twice a day. lisinopril hydrochlorothiazide 10/12.5 daily at bedtime -Reversal of colostomy. Prior Left splenic flexure bleed from diverticulosis resulting in left colectomy and colostomy on March [address] Laura. full liquids. 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 Discussed with patient. If discharged to follow- up with her PCP. Thank you Dr. Laura
== END 2022-06-14 17:07 | disposition home or self-care (01) | DRG 329 ==
LOC: 2ORMAIN 08:51 → 4SSUR 13:52
PROVIDERS: ADMIT Surgery; ATTEND Surgery
PROC: 0DBU0ZZ Excision of Omentum, Open Approach (ICD-10-PCS; 2022-06-07)
PROC: 0D9770Z Drainage of Stomach, Pylorus with Drainage Device, Via Natural or Artificial Opening (ICD-10-PCS; 2022-06-07)
PROC: 0DBM0ZZ Excision of Descending Colon, Open Approach (ICD-10-PCS; principal; 2022-06-07 10:45)
PROC: 05HC33Z Insertion of Infusion Device into Left Basilic Vein, Percutaneous Approach (ICD-10-PCS; 2022-06-10)
PROC: 05HA33Z Insertion of Infusion Device into Left Brachial Vein, Percutaneous Approach (ICD-10-PCS; 2022-06-12)
PROC: 05HC33Z Insertion of Infusion Device into Left Basilic Vein, Percutaneous Approach (ICD-10-PCS; 2022-06-14)
DX: Z43.3 Encounter for attention to colostomy (principal); K57.91 Diverticulosis of intestine, part unspecified, without perforation or abscess with bleeding; D72.829 Elevated white blood cell count, unspecified; F32.A Depression, unspecified; F41.9 Anxiety disorder, unspecified; E78.5 Hyperlipidemia, unspecified; I12.9 Hypertensive chronic kidney disease with stage 1 through stage 4 chronic kidney disease, or unspecified chronic kidney disease; N18.9 Chronic kidney disease, unspecified; M19.91 Primary osteoarthritis, unspecified site; Z87.442 Personal history of urinary calculi; Z86.16 Personal history of COVID-19; Z79.899 Other long term (current) drug therapy; Z90.49 Acquired absence of other specified parts of digestive tract; Z87.19 Personal history of other diseases of the digestive system
CPT/HCPCS: 36410; 71045; 72100; 72170; 76937; 80048; 84145; 85025; 85027; 86850; 86900; 86901; 88304; 88307

== ENCOUNTER → 2023-03-21 | Outpatient (CLI) | payer MEDICARE, BC ==
[2023-03-21 15:54] LABS: Basophils # (A) 0.06 X 10*3/uL (0.00-0.10); Eosinophils # (A) 0.33 X 10*3/uL (0.04-0.35); Eosinophils % (A) 5.6 %; HCT 27.1 % (37.2-46.3); HGB 7.4 d/dL (12.0-15.0); Lymphocytes # (A) 1.34 X 10*3/uL (0.90-5.00); Lymphocytes % (A) 22.7 %; MCH 22.2 pg (27.0-32.0); MCHC 27.3 d/dL (32.0-37.0); MCV 81.4 FL (80.0-97.0); Mean Platelet Volume 9.8 FL (9.5-12.2); Monocytes # (A) 0.48 X 10*3/uL (0.20-1.00); Monocytes % (A) 8.1 %; NRBC Per 100 WBC 0 X 10*3/uL (0.00-0.01); Neutrophils # (A) 3.68 X 10*3/uL (1.80-7.70); Neutrophils % (A) 62.3 %; Platelet Count 324 X 10*3/uL (140-440); RBC 3.33 X 10*6/uL (4.10-5.20); RDW 14.7 % (11.5-14.5); WBC 5.91 X 10*3/uL (4.50-10.00)
[2023-03-21 21:27] LABS: ALT 12 U/L (8-44); AST 12 U/L (13-35); Albumin 4.3 d/dL (3.8-4.9); Albumin/Globulin Ratio 1.87 Ratio (1.60-3.17); Alkaline Phosphatase 101 U/L (41-126); BUN/Creat Ratio 16.25 Ratio (12.00-20.00); Blood Urea Nitrogen 19.5 mg/dL (9.0-27.0); Calcium 10.4 mg/dL (8.7-10.3); Carbon Dioxide 26.5 mmol/L (21.6-31.8); Chloride 105 mmol/L (96-109); Ferritin 5.7 ng/mL (10.0-291.0); Globulin 2.3 d/dL (1.6-3.3); Glucose 100 mg/dL (70-110); Iron 19 UG/DL (50-170); Potassium 4.6 mmol/L (3.5-5.5); Sodium 143 mmol/L (135-145); Total Bilirubin <0.2 mg/dL (0.3-1.2); Total Iron Binding Capacity 487 UG/DL (228-460); Total Protein 6.6 d/dL (6.2-8.2)
== END | disposition home or self-care (01) ==
LOC: LABWHC1 11:44
PROVIDERS: ATTEND Nurse Practitioner Adult Health
DX: I10 Essential (primary) hypertension (principal); D64.9 Anemia, unspecified; R06.02 Shortness of breath
CPT/HCPCS: 36415; 80053; 82728; 83540; 83550; 83735; 85025